=== PATIENT | female | born 1975 | race Caucasian/White ===

== ENCOUNTER 2020-03-02 13:53 | Outpatient (REF) | payer OTHER, SELFPAY | END 2020-03-02 13:54 | disposition home or self-care (01) | LOC: HO.BBR 13:53 | PROVIDERS: Visit Provider Internal Medicine | DX: D75.1 Secondary polycythemia (principal) | CPT/HCPCS: 36415; 85014 ==

== ENCOUNTER 2020-04-04 06:06 | Outpatient (REF) | payer OTHER, SELFPAY ==
[2020-04-04 07:13] LABS: MANUAL DIFF FLAG NO
[2020-04-04 07:22] LABS: Basophils Percent Auto 0.4 % (0-2); Eosinophils Absolute Auto 0.2 X10*3/uL (0.0-0.4); Eosinophils Percent Auto 2.7 % (0-4); Hematocrit 44.7 % (37-47); Hemoglobin 15.4 g/dl (12.0-16.0); Imm Gran Abs Auto 0.02 X10*3/uL (0.00-0.03); Imm Gran Pct Auto 0.3 % (0.0-0.4); Lymphocytes Absolute Auto 1.9 X10*3/uL (1.2-4.9); Mean Corpuscular HGB Conc 34.5 g/dl (31.0-35.0); Mean Corpuscular Hemoglobin 30.3 pg (27.0-33.0); Mean Platelet Volume 9.3 fL (9.4-12.3); Monocytes Absolute Auto 0.6 X10*3/uL (0.1-1.2); Monocytes Percent Auto 7.8 % (2-11); Neutrophils Absolute Auto 4.4 X10*3/uL (2.0-8.3); Neutrophils Percent Auto 61.8 % (45-73); Platelet Count 324 X10*3/uL (160-400); Red Blood Count 5.08 X10*6/uL (4.20-5.50); Red Cell Distribution Width 12.9 % (11.0-16.0); White Blood Count 7.2 X10*3/uL (4.8-10.8)
[2020-04-04 07:44] LABS: Alanine Aminotransferase 23 U/L (0-31); Albumin Level 4.4 g/dL (3.5-5.0); Alkaline Phosphatase 47 U/L (39-117); Anion Gap 13 (12-20); Aspartate Amino Transferase 21 U/L (5-31); Bilirubin Total 0.7 mg/dL (0.0-1.0); Blood Urea Nitrogen 27 mg/dL (9-16); Calcium 9.2 mg/dL (8.4-10.2); Carbon Dioxide 30 mmol/L (22-29); Chloride 101 mmol/L (96-108); Cholesterol 170 mg/dL; Estimated Glomerular Filt Rate > 60; Glucose Random 101 mg/dL (60-115); HDL Cholesterol 40 mg/dL; LDL Cholesterol Calculated 102 mg/dl; Potassium 4.3 mmol/l (3.3-5.1); Sodium 140 mmol/L (135-145); Total Protein 7.3 g/dL (6.5-8.0); Triglycerides 144 mg/dL
[2020-04-04 08:08] LABS: Free T4 (Free Thyroxine) 1.19 ng/dL (0.71-1.85); Thyroid Stimulating Hormone 5.81 uIU/mL (0.32-4.0); Vitamin D 25-OH Total 34.5 ng/mL (>30)
[2020-04-04 09:26] LABS: Folate 6.7 ng/mL (> or = 4.0); Vitamin B12 286 pg/mL (200-900)
== END 2020-04-04 06:07 | disposition home or self-care (01) ==
LOC: HO.LAB 06:06
PROVIDERS: PCP Internal Medicine; Visit Provider Internal Medicine
DX: Z00.00 Encounter for general adult medical examination without abnormal findings (principal)
CPT/HCPCS: 36415; 80053; 80061; 82306; 82607; 82746; 84439; 84443; 85025

== ENCOUNTER 2020-05-04 11:35 | Outpatient (REF) | payer OTHER, SELFPAY | END 2020-05-04 11:36 | disposition home or self-care (01) | LOC: HO.BBR 11:35 | PROVIDERS: Visit Provider Internal Medicine | DX: D75.1 Secondary polycythemia (principal) | CPT/HCPCS: 85014 ==

== ENCOUNTER 2020-06-23 09:00 | Outpatient (REF) | payer OTHER, SELFPAY ==
--- NOTE | ~2020-06-23 | MM_ITS ---
EXAMINATION: MM SCREENING DIGITAL BREAST TOMOSYNTHESIS, BILATERAL CLINICAL INFORMATION: Screening. Asymptomatic. The lifetime risk of breast cancer based on the Tyrer-Cuzick Model is 12%. COMPARISON: Mammography: 05/27/2019, 11/06/2017, 07/18/2016 TECHNIQUE: Digital breast tomosynthesis is performed in both the craniocaudal and mediolateral oblique views along with computer-aided detection (CAD). Synthesized 2D images are generated from the tomosynthesis. Additional exaggerated left CC view is provided. FINDINGS: There are scattered areas of fibroglandular density (ACR BI-RADS breast composition Category b). Breast tissue composition borders on heterogeneously dense in the upper outer quadrants. Parenchymal pattern is similar to prior studies. There is no developing density or interval mass or architectural abnormality. No abnormal calcifications. The axilla and skin contours are unremarkable. MM/MM tomosynthesis screening BI IMPRESSION: No mammographic evidence of malignancy. ASSESSMENT: BI-RADS 1: Negative RECOMMENDATION: Routine annual mammography screening. This patient's information was entered into a reminder system with a target due date for their next mammogram.
== END 2020-06-23 09:01 | disposition home or self-care (01) ==
LOC: HO.MAMMO 09:00
PROVIDERS: PCP Internal Medicine; Visit Provider Internal Medicine
DX: Z12.31 Encounter for screening mammogram for malignant neoplasm of breast (principal)
CPT/HCPCS: 77063; 77067

== ENCOUNTER 2020-06-30 10:30 | Outpatient (REF) | payer OTHER, SELFPAY ==
[2020-06-30 11:37] LABS: Free T4 (Free Thyroxine) 1.62 ng/dL (0.71-1.85); Thyroid Stimulating Hormone 0.29 uIU/mL (0.32-4.0)
== END 2020-06-30 10:31 | disposition home or self-care (01) ==
LOC: HO.LAB 10:30
PROVIDERS: PCP Internal Medicine; Visit Provider Internal Medicine
DX: E03.9 Hypothyroidism, unspecified (principal)
CPT/HCPCS: 36415; 84439; 84443

== ENCOUNTER 2020-09-14 10:49 | Outpatient (REF) | payer OTHER, SELFPAY ==
[2020-09-14 12:24] LABS: MANUAL DIFF FLAG NO
[2020-09-14 12:32] LABS: Basophils Absolute Auto 0.1 X10*3/uL (0.0-0.2); Basophils Percent Auto 0.9 % (0-2); Eosinophils Absolute Auto 0.2 X10*3/uL (0.0-0.4); Eosinophils Percent Auto 3.3 % (0-4); Hematocrit 45.8 % (37-47); Hemoglobin 15.7 g/dl (12.0-16.0); Imm Gran Abs Auto 0.02 X10*3/uL (0.00-0.03); Imm Gran Pct Auto 0.3 % (0.0-0.4); Lymphocytes Absolute Auto 1.4 X10*3/uL (1.2-4.9); Lymphocytes Percent Auto 22.6 % (20-40); Mean Corpuscular HGB Conc 34.3 g/dl (31.0-35.0); Mean Corpuscular Volume 87.4 fL (80-98); Mean Platelet Volume 9.2 fL (9.4-12.3); Monocytes Absolute Auto 0.5 X10*3/uL (0.1-1.2); Monocytes Percent Auto 7.4 % (2-11); Neutrophils Absolute Auto 4.1 X10*3/uL (2.0-8.3); Neutrophils Percent Auto 65.5 % (45-73); Platelet Count 375 X10*3/uL (160-400); Red Blood Count 5.24 X10*6/uL (4.20-5.50); Red Cell Distribution Width 13.3 % (11.0-16.0); White Blood Count 6.3 X10*3/uL (4.8-10.8)
[2020-09-15 09:25] LABS: Erythropoietin (EPO) 4.6 mIU/mL (2.6-18.5)
== END 2020-09-14 10:50 | disposition home or self-care (01) ==
LOC: HO.LAB 10:49
PROVIDERS: Absent Provider Internal Medicine; PCP Internal Medicine; Visit Provider Internal Medicine
DX: D75.1 Secondary polycythemia (principal)
CPT/HCPCS: 36415; 82668; 85025

== ENCOUNTER 2020-11-04 20:17 | Emergency (ER) | payer OTHER, SELFPAY ==
--- NOTE | ~2020-11-04 | XR_ITS ---
EXAMINATION: XR CHEST CLINICAL INFORMATION: Fever, cough COMPARISON: 02/12/2015 TECHNIQUE: 2 views of the chest were obtained. FINDINGS: The lungs are clear with no focal consolidation. No evidence of pneumothorax, pulmonary edema, or pleural effusions. The cardiomediastinal silhouette is unremarkable. No acute osseous findings. XR/XR chest 2V IMPRESSION: No acute cardiopulmonary findings.
--- NOTE | ~2020-11-04 | US_ITS ---
EXAMINATION: US ABDOMEN LIMITED CLINICAL INFORMATION: Right upper quadrant/epigastric pain. COMPARISON: 05/31/2019 TECHNIQUE: Real-time imaging of the right upper quadrant abdominal viscera. FINDINGS: PANCREAS: The visualized proximal portion of the pancreas is unremarkable. The distal portion is obscured secondary to overlying bowel gas. LIVER: The liver is normal in size. The liver contour is normal. There is increased liver parenchymal echogenicity, consistent with hepatic steatosis; focal sparing noted near the gallbladder. No focal hepatic lesion. There is no intrahepatic biliary duct dilatation seen. GALLBLADDER: The gallbladder is physiologically distended without evidence of stones, sludge, polyps, wall thickening or pericholecystic fluid. COMMON BILE DUCT: Normal in caliber measuring 0.3 cm in diameter. RIGHT KIDNEY: No hydronephrosis. No renal calculi or focal parenchymal lesions. The kidney measures 12.8 cm in maximum dimension. FREE FLUID: None. US/US abdomen limited IMPRESSION: Normal appearance of the gallbladder. Hepatic steatosis.
--- NOTE | ~2020-11-04 | CT_ITS ---
EXAMINATION: CT ABDOMEN AND PELVIS WITH CONTRAST CLINICAL INFORMATION: Right flank/upper quadrant pain, febrile COMPARISON: Ultrasound 11/04/2020 TECHNIQUE: Multidetector volumetric images were obtained from the superior aspect of the liver through the pubic symphysis following administration 85 mL of Omnipaque 350 intravenous contrast. Sagittal and coronal reformatted images were obtained on the technologist's workstation. Oral contrast: No This CT examination was performed using dose optimization techniques as appropriate, variously including the following: *Automated exposure control *Adjustment of mA and/or kV according to patient size (this includes techniques or standardized protocols for targeted exams where dose is matched to indication/reason for exam; i.e. extremities or head) *Use of iterative reconstruction technique DLP: 751 mGy-cm FINDINGS: LUNG BASES: A subpleural 3 mm nodule is noted in the lingula laterally on image 4/96. Linear atelectasis is present in the left lower lobe. LIVER, GALLBLADDER, AND BILIARY TREE: The liver is normal in size, shape, and attenuation. No focal hepatic lesion or biliary ductal dilatation is present. The gallbladder is unremarkable with no evidence of radiopaque gallstones, gallbladder wall thickening, or obvious pericholecystic inflammatory changes. PANCREAS: Unremarkable. SPLEEN: Unremarkable. ADRENAL GLANDS: Unremarkable. KIDNEYS AND URETERS: The kidneys are normal in size, shape, and attenuation. No hydronephrosis, hydroureter, or obstructing calculi seen. No perinephric stranding. BLADDER: Unremarkable. GASTROINTESTINAL TRACT: The small and large bowel are unremarkable. The appendix is not identified. No free fluid or free air is seen. ABDOMINAL WALL: No significant hernia is appreciated. LYMPH NODES: Normal. VASCULAR: Unremarkable. PELVIC VISCERA: Partially calcified uterine fibroid is noted posteriorly near the fundus measuring approximately 5 cm. IUD is present in the uterus. Left adnexal cyst measuring up to 3.6 cm is presumably ovarian. OSSEOUS STRUCTURES: There is disc space narrowing and endplate osteophyte formation in the lower lumbar spine. CT/CT abdomen pelvis w con IMPRESSION: 1. Left adnexal cyst measuring up to 3.6 cm, presumably ovarian. No additional acute findings identified in the abdomen/pelvis. 2. Left upper lobe 3 mm lung nodule, nonspecific. According to the UPDATED 2017 Fleischner Society recommendations, the advised follow-up imaging for solid nodules < 6 mm is: LOW RISK PATIENT: No routine follow-up. HIGH RISK PATIENT: Optional CT at 12 months.
[2020-11-04 20:21] VITALS: BP 150/93; PULSE 115; RESP 18; TEMP 38.7; O2SAT 96; BMI 37.7
[2020-11-04 22:40] VITALS: BP 131/77; PULSE 79; RESP 18; TEMP 36.9; O2SAT 97
[2020-11-04 22:51] LABS: MANUAL DIFF FLAG NO
[2020-11-04 22:52] LABS: Basophils Percent Auto 0.6 % (0-2); Eosinophils Percent Auto 0.2 % (0-4); Glucose Urine UA NEG (NEG); Hematocrit 42.2 % (37-47); Imm Gran Abs Auto 0.01 X10*3/uL (0.00-0.03); Imm Gran Pct Auto 0.2 % (0.0-0.4); Leukocyte Esterase Urine NEG (NEG); Lymphocytes Absolute Auto 0.8 X10*3/uL (1.2-4.9); Lymphocytes Percent Auto 14.9 % (20-40); Mean Corpuscular HGB Conc 35.5 g/dl (31.0-35.0); Mean Corpuscular Hemoglobin 30.4 pg (27.0-33.0); Mean Corpuscular Volume 85.4 fL (80-98); Mean Platelet Volume 8.8 fL (9.4-12.3); Monocytes Absolute Auto 0.5 X10*3/uL (0.1-1.2); Monocytes Percent Auto 10.2 % (2-11); Neutrophils Absolute Auto 3.9 X10*3/uL (2.0-8.3); Neutrophils Percent Auto 73.9 % (45-73); Nitrite Urine NEG (NEG); Platelet Count 273 X10*3/uL (160-400); Red Blood Count 4.94 X10*6/uL (4.20-5.50); Red Cell Distribution Width 12.5 % (11.0-16.0); Specific Gravity - Urine 1.025 (1.005-1.025); Urine Blood TRACE (NEG); Urine Ketones 5 MG/DL (NEG); Urine Protein NEG (NEG-TRACE); White Blood Count 5.2 X10*3/uL (4.8-10.8)
[2020-11-04 22:55] LABS: Appearance Urine CLEAR; Color Urine YELLOW; UPreg QC Valid YES; Urine Pregnancy NEGATIVE (NEGATIVE)
[2020-11-04 23:01] LABS: Bacteria Urine TRACE /LPF; RBC Urine 0-2 /HPF (0); Squamous Epithelial Cell Urine 1+ /LPF; WBC Urine 0 /HPF (0-4)
--- NOTE | 2020-11-04 23:04 | ED_ITS ---
HPI - Abdominal Pain General Chief Complaint: Abdominal Pain Stated Complaint: Fever Time Seen by Provider: 11/04/20 23:04 Source: patient Mode of arrival: ambulatory History of Present Illness HPI narrative: 45-year-old female with history of RA, polycythemia who presents with onset of right upper quadrant/epigastric pain with radiation of the back that has started since yesterday with associated nausea but no vomiting and reports fever and chills but denies any diarrhea or urinary pain/burning/frequency, also denies any shortness of breath/chest pain/palpitations. Related Data Home Medications Medication Instructions Recorded Confirmed dicyclomine 10 mg capsule 10 mg PO QID 04/06/20 08/03/20 sumatriptan succinate 50 mg tablet 50 mg PO Q2-4H PRN 04/06/20 08/03/20 hydroxychloroquine 200 mg PO DAILY 05/25/20 08/03/20 Previous Rx's Medication Instructions Recorded hydrochlorothiazide 25 mg tablet 25 mg PO DAILY #90 tab 04/06/20 pantoprazole 40 mg tablet,delayed 40 mg PO DAILY #90 tab 04/06/20 release levothyroxine 25 mcg tablet See Rx Instructions PO DAILY #90 09/27/20 tab levothyroxine 200 mcg tablet 200 mcg PO DAILY #90 tab 10/02/20 Allergies Allergy/AdvReac Type Severity Reaction Status Date / Time Biaxin Allergy Unknown tongue Verified 04/06/20 16:04 swelling clarithromycin [From BIAXIN] Allergy Unknown SWELLING Verified 04/06/20 16:04 AND HIVES latex [LATEX] Allergy Unknown HIVES Verified 03/06/20 13:38 oxycodone [From OXYCONTIN] Allergy Unknown ITCHINESS Verified 04/06/20 16:04 Review of Systems Review of Systems Pertinent positives and negatives as stated in HPI 10 point review of systems is otherwise negative. Physical Exam Vital Signs: Vital Signs: Last Vital Signs Temp 97.9 F 11/05/20 01:26 Pulse 70 11/05/20 01:26 Resp 18 11/05/20 01:26 BP 120/73 11/05/20 01:26 Pulse Ox 97 11/05/20 01:26 Body Mass Index 37.7 VITAL SIGNS: Reviewed. GENERAL: Well developed, well nourished, in no acute distress. HEAD: Normocephalic/atraumatic EYES: PERRLA, EOMI OROPHARYNX: no oral lesions noted, posterior pharynx clear LUNGS: Normal breath sounds. No adventitious sounds or accessory muscle use. SpO2<97> CARDIOVASCULAR: Regular rate and rhythm without noted murmurs, no JVD or lower extremity edema. ABDOMEN: Soft, tenderness in right upper quadrant/epigastric without rebound, non-distended with bowel sounds. MUSCULOSKELETAL: No tenderness, deformities, or effusions noted on gross inspect ion. EXTREMITIES: No cyanosis, clubbing or edema. SKIN: Inspection of the skin reveals no rashes NEUROLOGIC: Alert and oriented x 4. Strength and sensation to light touch were grossly intact x 4. Course Course Course Narrative: 45-year-old female with history and clinical presentation suggestive of possible cholecystitis, choledocholithiasis, pancreatitis, less likely to be UTI/pyelonephritis/renal colic. Review all investigations negative for acute findings. All results discussed with the patient at bedside and patient will be treated for presumptive viral syndrome. She was instructed to follow up with the primary care provider 1st thing in the morning for re-evaluation further outpatient management. MDM - Abdominal Pain Lab Data Result diagrams: 11/04/20 22:45 11/04/20 22:45 Labs: Lab Results 11/04/20 11/04/20 11/04/20 Range/Units 22:45 22:45 22:45 WBC 5.2 (4.8-10.8) X10*3/uL RBC 4.94 (4.20-5.50) X10*6/uL Hgb 15.0 (12.0-16.0) g/dl Hct 42.2 (37-47) % MCV 85.4 (80-98) fL MCH 30.4 (27.0-33.0) pg MCHC 35.5 H (31.0-35.0) g/dl RDW 12.5 (11.0-16.0) % Plt Count 273 D (160-400) X10*3/uL MPV 8.8 L (9.4-12.3) fL Immature Gran % (Auto) 0.2 (0.0-0.4) % Neut % (Auto) 73.9 H (45-73) % Lymph % (Auto) 14.9 L (20-40) % [place] % (Auto) 10.2 (2-11) % Eos % (Auto) 0.2 (0-4) % Baso % (Auto) 0.6 (0-2) % Lymph # (Auto) 0.8 L (1.2-4.9) X10*3/uL [place] # (Auto) 0.5 (0.1-1.2) X10*3/uL Eos # (Auto) 0.0 (0.0-0.4) X10*3/uL Baso # (Auto) 0.0 (0.0-0.2) X10*3/uL Abs Immat Gran (auto) 0.01 (0.00-0.03) X10*3/uL Absolute Neuts (auto) 3.9 (2.0-8.3) X10*3/uL Absolute Nucleated RBC 0.000 (0.0-0.012) X10*3/uL Nucleated RBC % (auto) 0.0 (0.0-0.2) /100WBC Sodium 138 (135-145) mmol/L Potassium 3.7 (3.3-5.1) mmol/L Chloride 101 (96-108) mmol/L Carbon Dioxide 27 (22-29) mmol/L Anion Gap 14 (12-20) BUN 18 H (9-16) mg/dL Creatinine 1.13 (0.5-1.4) mg/dL Estim Creat Clear Calc 69.5 Estimated GFR 52 Random Glucose 106 (60-115) mg/dL Lactic Acid (0.5-2.0) mmol/L Calcium 9.5 (8.4-10.2) mg/dL Total Bilirubin 0.6 (0.0-1.0) mg/dL AST 27 (5-31) U/L ALT 29 (0-31) U/L Alkaline Phosphatase 53 (39-117) U/L Total Protein 7.1 (6.5-8.0) g/dL Albumin 4.3 (3.5-5.0) g/dL Lipase 52 (8-78) U/L Urine Color YELLOW Urine Appearance CLEAR Urine pH 6.0 (5.0-8.0) Ur Specific [place] 1.025 (1.005-1.025) Urine Protein NEG (NEG-TRACE) MG/DL Urine Glucose (UA) NEG (NEG) MG/DL Urine Ketones 5 (NEG) MG/DL Urine Blood TRACE (NEG) Urine Nitrite NEG (NEG) Ur Leukocyte Esterase NEG (NEG) Urine RBC 0-2 (0) /HPF Urine WBC 0 (0-4) /HPF Ur Squamous Epith Cells 1+ /LPF Urine Bacteria TRACE /LPF Urine Test (NEGATIVE) COVID-19 ([facility]) (Negative) COVID-19 Clin Com 11/04/20 11/04/20 11/04/20 Range/Units 22:45 23:24 23:28 WBC (4.8-10.8) X10*3/uL RBC (4.20-5.50) X10*6/uL Hgb (12.0-16.0) g/dl Hct (37-47) % MCV (80-98) fL MCH (27.0-33.0) pg MCHC (31.0-35.0) g/dl RDW (11.0-16.0) % Plt Count (160-400) X10*3/uL MPV (9.4-12.3) fL Immature Gran % (Auto) (0.0-0.4) % Neut % (Auto) (45-73) % Lymph % (Auto) (20-40) % [place] % (Auto) (2-11) % Eos % (Auto) (0-4) % Baso % (Auto) (0-2) % Lymph # (Auto) (1.2-4.9) X10*3/uL [place] # (Auto) (0.1-1.2) X10*3/uL Eos # (Auto) (0.0-0.4) X10*3/uL Baso # (Auto) (0.0-0.2) X10*3/uL Abs Immat Gran (auto) (0.00-0.03) X10*3/uL Absolute Neuts (auto) (2.0-8.3) X10*3/uL Absolute Nucleated RBC (0.0-0.012) X10*3/uL Nucleated RBC % (auto) (0.0-0.2) /100WBC Sodium (135-145) mmol/L Potassium (3.3-5.1) mmol/L Chloride (96-108) mmol/L Carbon Dioxide (22-29) mmol/L Anion Gap (12-20) BUN (9-16) mg/dL Creatinine (0.5-1.4) mg/dL Estim Creat Clear Calc Estimated GFR Random Glucose (60-115) mg/dL Lactic Acid 0.5 (0.5-2.0) mmol/L Calcium (8.4-10.2) mg/dL Total Bilirubin (0.0-1.0) mg/dL AST (5-31) U/L ALT (0-31) U/L Alkaline Phosphatase (39-117) U/L Total Protein (6.5-8.0) g/dL Albumin (3.5-5.0) g/dL Lipase (8-78) U/L Urine Color Urine Appearance Urine pH (5.0-8.0) Ur Specific [place] (1.005-1.025) Urine Protein (NEG-TRACE) MG/DL Urine Glucose (UA) (NEG) MG/DL Urine Ketones (NEG) MG/DL Urine Blood (NEG) Urine Nitrite (NEG) Ur Leukocyte Esterase (NEG) Urine RBC (0) /HPF Urine WBC (0-4) /HPF Ur Squamous Epith Cells /LPF Urine Bacteria /LPF Urine Test NEGATIVE (NEGATIVE) COVID-19 ([facility]) Negative (Negative) COVID-19 Clin Com See Note Discharge Plan Discharge Clinical Impression: Acute viral syndrome Patient Disposition: Home, Self-Care Instructions: Viral Syndrome (ED) Additional Instructions: 1. Resume all home medications as prescribed. 2. Please follow up with her primary care provider for re-evaluation in 2-3 days and further outpatient management. Return to the ER for acute worsening of symptoms. Prescriptions: No Action levothyroxine [Synthroid] 25 mcg tablet See Rx Instructions PO DAILY Qty: 90 RF: 1 levothyroxine [Synthroid] 200 mcg tablet 200 mcg PO DAILY Qty: 90 RF: 2 hydroxychloroquine 200 mg Tablet 200 mg PO DAILY RF: 0 sumatriptan succinate [Imitrex] 50 mg tablet 50 mg PO Q2-4H PRN (Reason: migraine) RF: 0 dicyclomine 10 mg capsule 10 mg PO QID RF: 0 pantoprazole 40 mg tablet,delayed release (DR/EC) 40 mg PO DAILY Qty: 90 RF: 2 hydrochlorothiazide 25 mg tablet 25 mg PO DAILY Qty: 90 RF: 2 Referrals: Po,Duong Mac MD [Primary Care Provider] - 2 days (Re-evaluation for unexplained fever, evaluated here in the ER with negative workup.) [facility] Past Medical History Source: nursing notes reviewed Medical History Adenomyosis GERD (gastroesophageal reflux disease) Hypertension Hypothyroid Lumbar degenerative disc disease Migraine Obesity (BMI 30-39.9) Osteoarthritis Polycythemia Surgical History History of appendectomy History of arthroscopy of right shoulder History of section History of inguinal hernia repair History of orthopedic surgery Family History Family History Father Alcohol abuse Mother Ovarian cancer Maternal Grandmother Breast cancer Liver cancer Paternal Aunt Breast cancer Social History Social History Alcohol intake: current Alcohol intake frequency: holidays/special occasions on ly Patient Tobacco Use Status: Never used Tobacco Cigarette Packs Per Day: 0.5 Use of substances other than those prescribed or required for medical reasons: No Advance Directives: No Advance Directives Information Provided: No Patient : No
[2020-11-04 23:16] LABS: Alanine Aminotransferase 29 U/L (0-31); Albumin Level 4.3 g/dL (3.5-5.0); Alkaline Phosphatase 53 U/L (39-117); Anion Gap 14 (12-20); Aspartate Amino Transferase 27 U/L (5-31); Bilirubin Total 0.6 mg/dL (0.0-1.0); Blood Urea Nitrogen 18 mg/dL (9-16); Calcium 9.5 mg/dL (8.4-10.2); Carbon Dioxide 27 mmol/L (22-29); Chloride 101 mmol/L (96-108); Creatinine Clr Calc Pharmacy 69.5; Estimated Glomerular Filt Rate 52; Glucose Random 106 mg/dL (60-115); Potassium 3.7 mmol/L (3.3-5.1); Sodium 138 mmol/L (135-145); Total Protein 7.1 g/dL (6.5-8.0)
[2020-11-04] MEDS: Acetaminophen 325 MG TABLET 975 MG PO (23:16)
[2020-11-04 23:36] LABS: Lipase 52 U/L (8-78)
[2020-11-04 23:49] LABS: Lactic Acid 0.5 mmol/L (0.5-2.0)
[2020-11-04 23:49] LABS: COVID-19 Test Negative (Negative); IDNOW Serial# 9DD0AD1C
[2020-11-05 01:26] VITALS: BP 120/73; PULSE 70; RESP 18; TEMP 36.6; O2SAT 97
[2020-11-05 03:26] LABS: Thyroid Stimulating Hormone 0.03 uIU/mL (0.32-4.0)
== END 2020-11-05 02:57 | disposition home or self-care (01) ==
PROVIDERS: Emergency Provider Student in an Organized Health Care Education/Training Program; PCP Internal Medicine
DX: B34.9 Viral infection, unspecified (principal); R10.11 Right upper quadrant pain; R50.9 Fever, unspecified; Z79.899 Other long term (current) drug therapy; Z20.822 Contact with and (suspected) exposure to COVID-19; F17.210 Nicotine dependence, cigarettes, uncomplicated; Z71.6 Tobacco abuse counseling
CPT/HCPCS: 36415; 71046; 74177; 76705; 80053; 81001; 81025; 83605; 83690; 84443; 85025; 87040; 87635; 99285

== ENCOUNTER 2020-11-07 07:42 | Inpatient (IN) | payer OTHER, SELFPAY ==
[2020-11-07] VITALS (13 sets, daily range): BP systolic 94–156; BP diastolic 49–92; PULSE 71–115; RESP 14–18; TEMP 36.3–38.2; O2SAT 95–98; BMI 37.0
--- NOTE | ~2020-11-07 | CT_ITS ---
EXAMINATION: CT HEAD WITHOUT CONTRAST CLINICAL INFORMATION: Headache COMPARISON: May 21, 2017 TECHNIQUE: Contiguous axial imaging was performed from the skull base to vertex without intravenous administration of contrast. This CT examination was performed using dose optimization techniques as appropriate, variously including the following: *Automated exposure control *Adjustment of mA and/or kV according to patient size (this includes techniques or standardized protocols for targeted exams where dose is matched to indication/reason for exam; i.e. extremities or head) *Use of iterative reconstruction technique DLP: 725 mGy-cm FINDINGS: There is no evidence of acute intracranial hemorrhage or territorial infarction. No abnormal mass effect or midline shift is seen. Pozo to white matter differentiation is well preserved. No extra-axial fluid collections are identified. The ventricles are normal in size. There is no abnormal attenuation within the brain parenchyma. The osseous structures and soft tissues are normal. The mastoid air cells and visualized portions of the paranasal sinuses are well aerated. CT/CT head/brain wo con IMPRESSION: No acute intracranial pathology.
--- NOTE | ~2020-11-07 | XR_ITS ---
EXAMINATION: XR CHEST CLINICAL INFORMATION: Fever COMPARISON: November 05, 2020 TECHNIQUE: 2 views of the chest were obtained. FINDINGS: There is no evidence of acute parenchymal disease, pneumothorax, or pleural effusion. Heart normal size. No evidence of pulmonary edema. Calcific tendinitis of the right shoulder is evident. XR/XR chest 2V IMPRESSION: No acute disease.
--- NOTE | 2020-11-07 08:36 | ECG_ITS ---
Test Reason : FEVER Blood Pressure : / mmHG Vent. Rate : 103 BPM Atrial Rate : 103 BPM P-R Int : 142 ms QRS Dur : 080 ms QT Int : 338 ms P-R-T Axes : 053 030 033 degrees QTc Int : 442 ms Sinus tachycardia Otherwise normal ECG When compared with ECG of 15-OCT-2014 10:07, No significant change was found Referred By: Mary Fletcher Electronically Signed By:MIGUEL HEWITT MD
--- NOTE | 2020-11-07 08:43 | ED_ITS ---
HPI - Fever General Chief Complaint: Fever Stated Complaint: Fever headaches Time Seen by Provider: 11/07/20 07:52 Source: patient Mode of arrival: ambulatory Limitations: no limitations History of Present Illness HPI Narrative: 45 yo female with past medical history of RA, polycythemia vera here with complaints of Fever with a max temp of 103 degrees since Thursday evening. Seen here November 05 with complaints of fever and right upper quadrant abdominal pain. Had labs which were unremarkable and an abdominal ultrasound which showed no acute finding. Diagnosed with viral syndrome. continued fever since. No additional abdominal pain. She is complaining of a headache, body aches, muscle aches, neck discomfort and rash noted to the right upper extremity. No cough, shortness of breath, chest pain, vomiting, diarrhea, urinary symptoms. Taking Motrin and Tylenol with continued symptoms. Patient tells me her sister noticed the rash on her right upper arm about 2 days ago. She does vaguely remember seeing a bug at this site about 1 week ago and swiped it away. Denies any pain or itching or burning to the site. Related Data Home Medications Medication Instructions Recorded Confirmed dicyclomine 10 mg capsule 10 mg PO QID 04/06/20 11/07/20 sumatriptan succinate 50 mg tablet 50 mg PO Q2-4H PRN 04/06/20 11/07/20 levothyroxine [Synthroid] 25 mcg PO DAILY 11/07/20 11/07/20 tramadol 1 tab PO DAILY PRN 11/07/20 11/07/20 Previous Rx's Medication Instructions Recorded hydrochlorothiazide 25 mg tablet 25 mg PO DAILY #90 tab 04/06/20 pantoprazole 40 mg tablet,delayed 40 mg PO DAILY #90 tab 04/06/20 release levothyroxine 200 mcg tablet 200 mcg PO DAILY #90 tab 10/02/20 Allergies Allergy/AdvReac Type Severity Reaction Status Date / Time Biaxin Allergy Unknown tongue Verified 04/06/20 16:04 swelling clarithromycin [From BIAXIN] Allergy Unknown SWELLING Verified 04/06/20 16:04 AND HIVES latex [LATEX] Allergy Unknown HIVES Verified 03/06/20 13:38 oxycodone [From OXYCONTIN] Allergy Unknown ITCHINESS Verified 04/06/20 16:04 Review of Systems Review of Systems: Yes all other systems are reviewed and are negative Constitutional: Constitutional: Reports no additional constitutional complaints, Reports body ache(s), Reports chills, Reports fever(s), Reports headache(s) and Denies weakness Eyes: Eyes: Reports no additional eye complaints and Denies change in vision ENT: Reports system reviewed and no additional complaints, except as documented, Denies dizziness, Reports headache(s), Denies nasal congestion, Denies nasal discharge and Reports neck pain Cardiovascular: Cardiovascular: Reports no additional cardiovascular complaints, Denies chest pain, Denies leg edema and Denies dyspnea Respiratory: Respiratory: Reports no additional respiratory complaints, Denies cough and Denies dyspnea Gastrointestinal: Gastrointestinal: Reports no additional gastrointestinal complaints, Denies abdominal pain, Denies diarrhea, Denies nausea and Denies vomiting Genitourinary: Genitourinary: Reports no additional female genitourinary complaints and Denies urinary incontinence Musculoskeletal: Musculoskeletal: Reports no additional musculoskeletal complaints, Denies back pain, Denies arthralgias, Denies joint swelling, Reports neck pain, Denies numbness and Denies tingling Integumentary/Breasts: Skin/Breast: Reports system reviewed and no additional complaints, except as docu and Reports rash Neurologic: Reports system reviewed and no additional complaints, except as documented, Denies Abnormal speech present, Denies dizziness, Reports headache( s), Denies numbness, Denies tingling and Denies weakness PMFSH Past Medical History Attestation statement: The following information was validated with the patient. Source: old records reviewed and nursing notes reviewed Medical History Adenomyosis GERD (gastroesophageal reflux disease) Hypertension Hypothyroid Lumbar degenerative disc disease Migraine Obesity (BMI 30-39.9) Osteoarthritis Polycythemia Surgical History History of appendectomy History of arthroscopy of right shoulder History of section History of inguinal hernia repair History of orthopedic surgery Family History Family History Father Alcohol abuse Mother Ovarian cancer Maternal Grandmother Breast cancer Liver cancer Paternal Aunt Breast cancer Social History Social History Alcohol intake: never Patient Tobacco Use Status: Never used Tobacco Cigarette Packs Per Day: 0.5 Smoked in Last 30 Days: No Use of substances other than those prescribed or required for medical reasons: No Advance Directives: No Advance Directives Information Provided: No Patient : No Physical Exam Vital Signs: Vital Signs: Last Vital Signs Temp 98.5 F 11/07/20 14:28 Pulse 71 11/07/20 14:28 Resp 16 11/07/20 14:28 BP 94/49 L 11/07/20 14:28 Pulse Ox 97 11/07/20 14:28 Body Mass Index 37.0 Const: General: cooperative, healthy appearing, comfortable and no acute distress Orientation/consciousness: patient oriented x3 Limitations: no limitations HENMT: Head: Yes normal to inspection Ears: hearing grossly normal bilaterally General nose exam: Normal external nose present Face and sinus: Yes normal facial exam Mouth: Normal oral and palatal mucosa present Throat: Yes posterior oropharynx normal Eyes: General: appearance normal, both eyes and all related structures Pu pils: Equal, round and reactive pupils present Neck: Other: Limited range of motion. Complaining of diffuse pain Neck: Yes normal visual inspection Chest: Chest palpation & inspection: normal inspection of the chest Resp: Effort & Inspection: normal respiratory effort Auscultation: clear to auscultation bilaterally Cardio: Rate: regular rate Rhythm: regular rhythm Peripheral pulses: Peripheral pulses 2+ throughout GI: Inspection: Yes normal to inspection Palpation (GI): Soft to palpation and nontender Auscultation: normal bowel sounds Back/Spine/Pelvis: Thoracic/Lumbar Spine: thoracic and lumbar spine normal to inspection Skin: Other: General skin exam: no rashes or lesions noted Neuro: General: patient oriented x3, no focal motor deficits and normal sensation to monofilament Cranial nerves: Yes Equal, round and reactive pupils present Cognition (Neuro): normal cognition Speech: No Abnormal speech present Gait exam (Neuro): Normal gait present Motor exam (neuro): 5/5 motor strength present throughout Extrem: General: Yes normal to inspection Course Course Course Narrative: 45-year-old female here with fever, headache, body aches, muscle aches, rash to the right upper extremity for several days. Possible tick bite per patient. Rash is consistent with erythema migrans. On arrival fever with tachycardia. Normal neuro exam. Is complaining of generalized headache which patient states is quite severe and generalized body aches with neck discomfort. Limited range of motion due to pain. May be secondary to body aches but could consider underlying meningitis. Will check labs, EKG, UA, chest x-ray, COVID screen. Give IV fluids (d/t obesity IBW of 52kg used) , IV Reglan, IV Benadryl, Toradol and re-assess. 0923-Ceftriaxone IV for presumed Lyme. 1040-continue headache, neck discomfort. Cannot rule out meningitis. Patient was consented for lumbar puncture. Will obtain CT head prior. 1430-CT head negative. LP done by Dr Hemphill at the bedside. 1545-Intractable LOW despite 3 rounds of narcotic, Toradol, Reglan and Benadryl. Will need admission. D/w with Dr Sanders who would like ID input. 1553-spoke to Dr. Murray from ID. Recommended adding doxycycline. Requested meningitis/encephalitis panel. Also if able requested West Nile and Eastern equine blood and CSF samples. 1600-call from lab. They are unable to process the West Nile and Eastern equine CSF samples due to an adequate amount of CSF. They will send the meningitis and encephalitis panel. They will follow-up with nursing if the West Nile and Eastern equine blood samples should still be evaluated. 1615-spoke to Dr. Corea who accepted patient Procedures Lumbar Puncture Time Out Performed: Yes Patient Position: upright Skin Prep: 0.5% Chlorhexidine/Alcohol Local Anesthetic: lidocaine 1% Amount of anesthesia used (mL): 3 Spinal Needle Gauge: 22G Interspace Used: L4-L5 Fluid Initially Obtained: clear Complications: none Additional Comments: Attempts x2 Done by Dr. Hemphill Consent in chart MDM - Fever MDM Narrative Medical decision making narrative: UTI, meningitis, Lyme disease Differential Diagnosis Differential diagnosis: Likely fever of unknown origin, community acquired pneumonia and viral infection Medical Records Attestation: I reviewed the patient's medical records. Lab Data Attestation: I reviewed the patient's lab results. Result diagrams: 11/07/20 08:59 11/07/20 08:59 Labs: Lab Results 11/07/20 11/07/20 11/07/20 Range/Units 08:59 08:59 08:59 WBC 4.9 (4.8-10.8) X10*3/uL RBC 5.05 (4.20-5.50) X10*6/uL Hgb 15.0 (12.0-16.0) g/dl Hct 41.7 (37-47) % MCV 82.6 (80-98) fL MCH 29.7 (27.0-33.0) pg MCHC 36.0 H (31.0-35.0) g/dl RDW 12.3 (11.0-16.0) % Plt Count 216 (160-400) X10*3/uL MPV 9.2 L (9.4-12.3) fL Immature Gran % (Auto) 0.2 (0.0-0.4) % Neut % (Auto) 78.6 H (45-73) % Lymph % (Auto) 9.7 L (20-40) % [place] % (Auto) 11.1 H (2-11) % Eos % (Auto) 0.0 (0-4) % Baso % (Auto) 0.4 (0-2) % Lymph # (Auto) 0.5 L (1.2-4.9) X10*3/uL [place] # (Auto) 0.6 (0.1-1.2) X10*3/uL Eos # (Auto) 0.0 (0.0-0.4) X10*3/uL Baso # (Auto) 0.0 (0.0-0.2) X10*3/uL Abs Immat Gran (auto) 0.01 (0.00-0.03) X10*3/uL Absolute Neuts (auto) 3.9 (2.0-8.3) X10*3/uL Absolute Nucleated RBC 0.000 (0.0-0.012) X10*3/uL Nucleated RBC % (auto) 0.0 (0.0-0.2) /100WBC PT 15.6 H (9.9-13.0) SEC INR 1.4 H (0.9-1.1) Sodium 135 (135-145) mmol/L Potassium 3.2 L (3.3-5.1) mmol/L Chloride 99 (96-108) mmol/L Carbon Dioxide 26 (22-29) mmol/L Anion Gap 13 (12-20) BUN 12 (9-16) mg/dL Creatinine 0.90 (0.5-1.4) mg/dL Estim Creat Clear Calc 86.4 Estimated GFR > 60 Random Glucose 110 (60-115) mg/dL Lactic Acid (0.5-2.0) mmol/L Calcium 9.1 (8.4-10.2) mg/dL Magnesium 2.0 (1.6-2.6) mg/dL Total Bilirubin 1.0 (0.0-1.0) mg/dL Direct Bilirubin 0.4 (0.0-0.5) mg/dL AST 48 H D (5-31) U/L ALT 56 H (0-31) U/L Alkaline Phosphatase 76 D (39-117) U/L Total Protein 7.3 (6.5-8.0) g/dL Albumin 4.2 (3.5-5.0) g/dL Urine Color Urine Appearance Urine pH (5.0-8.0) Ur Specific Deloit (1.005-1.025) Urine Protein (NEG-TRACE) MG/DL Urine Glucose (UA) (NEG) MG/DL Urine Ketones (NEG) MG/DL Urine Blood (NEG) Urine Nitrite (NEG) Ur Leukocyte Esterase (NEG) Urine RBC (0) /HPF Urine WBC (0-4) /HPF Ur Squamous Epith Cells /LPF Urine Bacteria /LPF Urine Test (NEGATIVE) CSF Tube Number CSF Volume ML CSF Appearance CSF Color CSF WBC MM*3 CSF RBC MM*3 CSF Neutrophils % CSF Lymphocytes % CSF Monocytes % % CSF Other Cells % % CSF Appearance (b) CSF Glucose mg/dL CSF Total Protein (15-45) mg/dL CSF West Nile Virus COVID-19 ([facility]) (Negative) COVID-19 Clin Com 11/07/20 11/07/20 11/07/20 Range/Units 08:59 08:59 09:12 WBC (4.8-10.8) X10*3/uL RBC (4.20-5.50) X10*6/uL Hgb (12.0-16.0) g/dl Hct (37-47) % MCV (80-98) fL MCH (27.0-33.0) pg MCHC (31.0-35.0) g/dl RDW (11.0-16.0) % Plt Count (160-400) X10*3/uL MPV (9.4-12.3) fL Immature Gran % (Auto) (0.0-0.4) % Neut % (Auto) (45-73) % Lymph % (Auto) (20-40) % [place] % (Auto) (2-11) % Eos % (Auto) (0-4) % Baso % (Auto) (0-2) % Lymph # (Auto) (1.2-4.9) X10*3/uL [place] # (Auto) (0.1-1.2) X10*3/uL Eos # (Auto) (0.0-0.4) X10*3/uL Baso # (Auto) (0.0-0.2) X10*3/uL Abs Immat Gran (auto) (0.00-0.03) X10*3/uL Absolute Neuts (auto) (2.0-8.3) X10*3/uL Absolute Nucleated RBC (0.0-0.012) X10*3/uL Nucleated RBC % (auto) (0.0-0.2) /100WBC PT (9.9-13.0) SEC INR (0.9-1.1) Sodium (135-145) mmol/L Potassium (3.3-5.1) mmol/L Chloride (96-108) mmol/L Carbon Dioxide (22-29) mmol/L Anion Gap (12-20) BUN (9-16) mg/dL Creatinine (0.5-1.4) mg/dL Estim Creat Clear Calc Estimated GFR Random Glucose (60-115) mg/dL Lactic Acid 0.9 (0.5-2.0) mmol/L Calcium (8.4-10.2) mg/dL Magnesium (1.6-2.6) mg/dL Total Bilirubin (0.0-1.0) mg/dL Direct Bilirubin (0.0-0.5) mg/dL AST (5-31) U/L ALT (0-31) U/L Alkaline Phosphatase (39-117) U/L Total Protein (6.5-8.0) g/dL Albumin (3.5-5.0) g/dL Urine Color YELLOW Urine Appearance CLEAR Urine pH 7.0 (5.0-8.0) Ur Specific Deloit <= 1.005 (1.005-1.025) Urine Protein TRACE (NEG-TRACE) MG/DL Urine Glucose (UA) NEG (NEG) MG/DL Urine Ketones 5 (NEG) MG/DL Urine Blood 2+ H (NEG) Urine Nitrite NEG (NEG) Ur Leukocyte Esterase NEG (NEG) Urine RBC 5-9 H (0) /HPF Urine WBC 0 (0-4) /HPF Ur Squamous Epith Cells 2+ /LPF Urine Bacteria NONE /LPF Urine Test (NEGATIVE) CSF Tube Number CSF Volume ML CSF Appearance CSF Color CSF WBC MM*3 CSF RBC MM*3 CSF Neutrophils % CSF Lymphocytes % CSF Monocytes % % CSF Other Cells % % CSF Appearance (b) CSF Glucose mg/dL CSF Total Protein (15-45) mg/dL CSF West Nile Virus COVID-19 ([facility]) Negative (Negative) COVID-19 Clin Com See Note 11/07/20 11/07/20 11/07/20 Range/Units 09:12 13:45 13:45 WBC (4.8-10.8) X10*3/uL RBC (4.20-5.50) X10*6/uL Hgb (12.0-16.0) g/dl Hct (37-47) % MCV (80-98) fL MCH (27.0-33.0) pg MCHC (31.0-35.0) g/dl RDW (11.0-16.0) % Plt Count (160-400) X10*3/uL MPV (9.4-12.3) fL Immature Gran % (Auto) (0.0-0.4) % Neut % (Auto) (45-73) % Lymph % (Auto) (20-40) % [place] % (Auto) (2-11) % Eos % (Auto) (0-4) % Baso % (Auto) (0-2) % Lymph # (Auto) (1.2-4.9) X10*3/uL [place] # (Auto) (0.1-1.2) X10*3/uL Eos # (Auto) (0.0-0.4) X10*3/uL Baso # (Auto) (0.0-0.2) X10*3/uL Abs Immat Gran (auto) (0.00-0.03) X10*3/uL Absolute Neuts (auto) (2.0-8.3) X10*3/uL Absolute Nucleated RBC (0.0-0.012) X10*3/uL Nucleated RBC % (auto) (0.0-0.2) /100WBC PT (9.9-13.0) SEC INR (0.9-1.1) Sodium (135-145) mmol/L Potassium (3.3-5.1) mmol/L Chloride (96-108) mmol/L Carbon Dioxide (22-29) mmol/L Anion Gap (12-20) BUN (9-16) mg/dL Creatinine (0.5-1.4) mg/dL Estim Creat Clear Calc Estimated GFR Random Glucose (60-115) mg/dL Lactic Acid (0.5-2.0) mmol/L Calcium (8.4-10.2) mg/dL Magnesium (1.6-2.6) mg/dL Total Bilirubin (0.0-1.0) mg/dL Direct Bilirubin (0.0-0.5) mg/dL AST (5-31) U/L ALT (0-31) U/L Alkaline Phosphatase (39-117) U/L Total Protein (6.5-8.0) g/dL Albumin (3.5-5.0) g/dL Urine Color Urine Appearance Urine pH (5.0-8.0) Ur Specific [place]oit (1.005-1.025) Urine Protein (NEG-TRACE) MG/DL Urine Glucose (UA) (NEG) MG/DL Urine Ketones (NEG) MG/DL Urine Blood (NEG) Urine Nitrite (NEG) Ur Leukocyte Esterase (NEG) Urine RBC (0) /HPF Urine WBC (0-4) /HPF Ur Squamous Epith Cells /LPF Urine Bacteria /LPF Urine Test NEGATIVE (NEGATIVE) CSF Tube Number 1 4 CSF Volume 1.5 ML CSF Appearance CLEAR CSF Color COLORLESS CSF WBC 1 MM*3 CSF RBC 0 MM*3 CSF Neutrophils 0 % CSF Lymphocytes 100 % CSF Monocytes % 0 % CSF Other Cells % 0 % CSF Appearance (b) Clear, Colorless CSF Glucose 69 mg/dL CSF Total Protein 18.8 (15-45) mg/dL CSF West Nile Virus COVID-19 ([facility]) (Negative) COVID-19 Clin Com 11/07/20 Range/Units Unknown WBC (4.8-10.8) X10*3/uL RBC (4.20-5.50) X10*6/uL Hgb (12.0-16.0) g/dl Hct (37-47) % MCV (80-98) fL MCH (27.0-33.0) pg MCHC (31.0-35.0) g/dl RDW (11.0-16.0) % Plt Count (160-400) X10*3/uL MPV (9.4-12.3) fL Immature Gran % (Auto) (0.0-0.4) % Neut % (Auto) (45-73) % Lymph % (Auto) (20-40) % [place] % (Auto) (2-11) % Eos % (Auto) (0-4) % Baso % (Auto) (0-2) % Lymph # (Auto) (1.2-4.9) X10*3/uL [place] # (Auto) (0.1-1.2) X10*3/uL Eos # (Auto) (0.0-0.4) X10*3/uL Baso # (Auto) (0.0-0.2) X10*3/uL Abs Immat Gran (auto) (0.00-0.03) X10*3/uL Absolute Neuts (auto) (2.0-8.3) X10*3/uL Absolute Nucleated RBC (0.0-0.012) X10*3/uL Nucleated RBC % (auto) (0.0-0.2) /100WBC PT (9.9-13.0) SEC INR (0.9-1.1) Sodium (135-145) mmol/L Potassium (3.3-5.1) mmol/L Chloride (96-108) mmol/L Carbon Dioxide (22-29) mmol/L Anion Gap (12-20) BUN (9-16) mg/dL Creatinine (0.5-1.4) mg/dL Estim Creat Clear Calc Estimated GFR Random Glucose (60-115) mg/dL Lactic Acid (0.5-2.0) mmol/L Calcium (8.4-10.2) mg/dL Magnesium (1.6-2.6) mg/dL Total Bilirubin (0.0-1.0) mg/dL Direct Bilirubin (0.0-0.5) mg/dL AST (5-31) U/L ALT (0-31) U/L Alkaline Phosphatase (39-117) U/L Total Protein (6.5-8.0) g/dL Albumin (3.5-5.0) g/dL Urine Color Urine Appearance Urine pH (5.0-8.0) Ur Specific [place] (1.005-1.025) Urine Protein (NEG-TRACE) MG/DL Urine Glucose (UA) (NEG) MG/DL Urine Ketones (NEG) MG/DL Urine Blood (NEG) Urine Nitrite (NEG) Ur Leukocyte Esterase (NEG) Urine RBC (0) /HPF Urine WBC (0-4) /HPF Ur Squamous Epith Cells /LPF Urine Bacteria /LPF Urine Test (NEGATIVE) CSF Tube Number CSF Volume ML CSF Appearance CSF Color CSF WBC MM*3 CSF RBC MM*3 CSF Neutrophils % CSF Lymphocytes % CSF Monocytes % % CSF Other Cells % % CSF Appearance (b) CSF Glucose mg/dL CSF Total Protein (15-45) mg/dL CSF West Nile Virus TNP COVID-19 ([facility]) (Negative) COVID-19 Clin Com Imaging Data Chest x-ray: Attestation: I personally reviewed and interpreted this imaging study as follows: Radiologist's impression: [address] [id number] ReportSigned Patient: Michelle Miguel MMR#: [id number]: [id number]:[id number]/Sex: 45 / FADM Date: 11/07/20Loc: EDAttending Dr: Ordering Physician: ASAEL COLINDRES NP Date of Service: 11/07/20 Procedure(s): XR chest 2V Accession Number(s): [id number] cc: ASAEL COLINDRES NP~ EXAMINATION: XR CHEST CLINICAL INFORMATION: Fever COMPARISON: November 05, 2020 TECHNIQUE: 2 views of the chest were obtained. FINDINGS: There is no evidence of acute parenchymal disease, pneumothorax, or pleural effusion. Heart normal size. No evidence of pulmonary edema. Calcific tendinitis of the right shoulder is evident. XR/XR chest 2V IMPRESSION: No acute disease. CT scan - head: Attestation: I personally reviewed and interpreted this imaging study as follows: Radiologist's impression: FINDINGS: There is no evidence of acute intracranial hemorrhage or territorial infarction. No abnormal mass effect or midline shift is seen. Pozo to white matter differentiation is well preserved. No extra-axial fluid collections are identified. The ventricles are normal in size. There is no abnormal attenuation within the brain parenchyma. The osseous structures and soft tissues are normal. The mastoid air cells and visualized portions of the paranasal sinuses are well aerated. CT/CT head/brain wo con IMPRESSION: No acute intracranial pathology. ECG Data ECG #1: Attestation: I personally reviewed and interpreted this ECG as follows: ECG interpretation date: 11/07/20 ECG interpretation time: 09:26 Interpretation: Sinus tachycardia with a rate of 103, normal ID, normal QRS, normal QT Critical Care Time Critical Care Time Critical Care Time: Yes Total Critical Care Time: 60 Attestation: Multiple re-evaluations for pain control, discussion with specialis ts, lumbar puncture, discussion with admission team Discharge Plan Discharge Clinical Impression: Fever, Tick bite, Headache Patient Disposition: Admitted As Inpatient
[2020-11-07 09:06] LABS: MANUAL DIFF FLAG NO
[2020-11-07 09:09] LABS: Basophils Percent Auto 0.4 % (0-2); Hematocrit 41.7 % (37-47); Imm Gran Abs Auto 0.01 X10*3/uL (0.00-0.03); Imm Gran Pct Auto 0.2 % (0.0-0.4); Lymphocytes Absolute Auto 0.5 X10*3/uL (1.2-4.9); Lymphocytes Percent Auto 9.7 % (20-40); Mean Corpuscular Hemoglobin 29.7 pg (27.0-33.0); Mean Corpuscular Volume 82.6 fL (80-98); Mean Platelet Volume 9.2 fL (9.4-12.3); Monocytes Absolute Auto 0.6 X10*3/uL (0.1-1.2); Monocytes Percent Auto 11.1 % (2-11); Neutrophils Absolute Auto 3.9 X10*3/uL (2.0-8.3); Neutrophils Percent Auto 78.6 % (45-73); Platelet Count 216 X10*3/uL (160-400); Red Blood Count 5.05 X10*6/uL (4.20-5.50); Red Cell Distribution Width 12.3 % (11.0-16.0); White Blood Count 4.9 X10*3/uL (4.8-10.8)
[2020-11-07 09:19] LABS: INTERNATIONAL NORM RATIO 1.4 (0.9-1.1); Prothrombin Time 15.6 SEC (9.9-13.0)
[2020-11-07 09:21] LABS: Glucose Urine UA NEG (NEG); Leukocyte Esterase Urine NEG (NEG); Nitrite Urine NEG (NEG); Specific Gravity - Urine <= 1.005 (1.005-1.025); Urine Blood 2+ (NEG); Urine Ketones 5 MG/DL (NEG); Urine Protein TRACE MG/DL (NEG-TRACE)
[2020-11-07] MEDS: Metoclopramide HCl 10 MG/2 ML VIAL IVPUSH (09:21)
[2020-11-07] MEDS: diphenhydrAMINE HCL 50 MG/ML VIAL 25 MG IVPUSH (09:21)
[2020-11-07] MEDS: Ketorolac Tromethamine 30 MG/ML VIAL IVPUSH (09:21)
[2020-11-07 09:22] LABS: COVID-19 Test Negative (Negative)
[2020-11-07 09:23] LABS: Appearance Urine CLEAR; Color Urine YELLOW
[2020-11-07] MEDS: cefTRIAXone sodium 2 GM in 0.9 % Sodium Chloride 50 ML IV (09:30)
[2020-11-07 09:33] LABS: Squamous Epithelial Cell Urine 2+ /LPF; WBC Urine 0 /HPF (0-4)
[2020-11-07 09:34] LABS: Lactic Acid 0.9 mmol/L (0.5-2.0)
[2020-11-07 09:44] LABS: Alanine Aminotransferase 56 U/L (0-31); Albumin Level 4.2 g/dL (3.5-5.0); Alkaline Phosphatase 76 U/L (39-117); Anion Gap 13 (12-20); Aspartate Amino Transferase 48 U/L (5-31); Bilirubin Direct 0.4 mg/dL (0.0-0.5); Blood Urea Nitrogen 12 mg/dL (9-16); Calcium 9.1 mg/dL (8.4-10.2); Carbon Dioxide 26 mmol/L (22-29); Chloride 99 mmol/L (96-108); Creatinine Clr Calc Pharmacy 86.4; Estimated Glomerular Filt Rate > 60; Glucose Random 110 mg/dL (60-115); Potassium 3.2 mmol/L (3.3-5.1); Sodium 135 mmol/L (135-145); Total Protein 7.3 g/dL (6.5-8.0)
[2020-11-07] MEDS: Potassium Chloride ER 20 MEQ TAB.ER.PRT 40 MEQ PO (10:11)
[2020-11-07] MEDS: Morphine Sulfate 4 MG/ML CARTRIDGE IVPUSH ×2 (10:38→13:14)
[2020-11-07 10:51] LABS: UPreg QC Valid YES; Urine Pregnancy NEGATIVE (NEGATIVE)
[2020-11-07 14:33] LABS: CSF Appearance Clear, Colorless
[2020-11-07 14:34] LABS: CSF Tube # 1
[2020-11-07 14:45] LABS: Glucose CSF 69 mg/dL; Total Protein CSF 18.8 mg/dL (15-45)
[2020-11-07 15:02] LABS: Appearance CSF CLEAR; CSF Monos 0 %; CSF Other Cells % 0 %; CSF Tube # 4; CSF Volume 1.5 ML; Color CSF COLORLESS; Neutrophils CSF 0 %; Red Blood Cell CSF 0 MM*3; White Blood Cell CSF 1 MM*3
[2020-11-07 15:03] LABS: Lymphocytes CSF 100 %
[2020-11-07] MEDS: HYDROmorphone HCl 0.5 MG/0.5 ML SYRINGE IVPUSH (15:13)
--- NOTE | 2020-11-07 16:50 | PM.IMHP ---
History of Present Illness Date of Service: 11/07/20 Chief Complaint: headache, fever 45F presented with several days of fever and headache. Patient states she began feeling ill 5 days prior to presentation. She had body aches, lethargy, fevers, and severe headaches. The headaches started 1 day prior to presentation. Patient was in the ED 3 days prior to presentation, was felt to have a viral illness at that point, however, patient returned as she is not improved and headaches have worsened. Patient was noted to have a target lesion on her right shoulder. She is generally active and has recently been hiking, she believes she got a bite about a week or two prior to presentation, she did not see a tick. In ED patient had a fever of 100.8, LFTs 1-2 times upper limit. LP was unremarkable except for subjective noting of increased pressure. Review of Systems Review of Systems: Constitutional: fever, Chills Eyes: denies blurry vision ENT: denies sore throat CVS: denies chest pain Respiratory: Denies dyspnea GI: no abdominal pain : denies dysuria MSK: neck pain Skin: rash Neuro: denies specific motor weakness Psych: denies suicidal ideation Endocrine: denies heat/cold intoleratnce Hematologic: denies easy bleeding Allergy: denies hives [facility] Medical History Adenomyosis GERD (gastroesophageal reflux disease) Hypertension Hypothyroid Lumbar degenerative disc disease Migraine Obesity (BMI 30-39.9) Osteoarthritis Polycythemia Family History Father Alcohol abuse Mother Ovarian cancer Maternal Grandmother Breast cancer Liver cancer Paternal Aunt Breast cancer Surgical History History of appendectomy History of arthroscopy of right shoulder History of section History of inguinal hernia repair History of orthopedic surgery Social History Alcohol intake: never Patient Tobacco Use Status: Never used Tobacco Cigarette Packs Per Day: 0.5 Smoked in Last 30 Days: No Use of substances other than those prescribed or required for medical reasons: No Advance Directives: No Advance Directives Information Provided: No Patient : No Meds Allergies Allergy/AdvReac Type Severity Reaction Status Date / Time Biaxin Allergy Unknown tongue Verified 04/06/20 16:04 swelling clarithromycin [From BIAXIN] Allergy Unknown SWELLING Verified 04/06/20 16:04 AND HIVES latex [LATEX] Allergy Unknown HIVES Verified 03/06/20 13:38 oxycodone [From OXYCONTIN] Allergy Unknown ITCHINESS Verified 04/06/20 16:04 Active Medications: Current Medications Generic Name Dose Route Start Last Admin Trade Name Freq PRN Reason Stop Dose Admin Acetaminophen 650 mg 11/07/20 16:47 Acetaminophen 325 Mg Tablet PO Q6H PRN Pain, Mild (Pain Scale 1-3) Dicyclomine HCl 10 mg 11/07/20 17:00 Dicyclomine Hcl 10 Mg Capsule PO QID [facility] Enoxaparin Sodium 40 mg 11/07/20 17:00 Enoxaparin Sodium 40 Mg/0.4 Ml Syringe SUBCUT Q24H [facility] Doxycycline Hyclate 100 mg/ 250 mls @ 166.67 mls/hr 11/07/20 15:57 Sodium Chloride IV 11/07/20 17:26 ONCE ONE Lactated Ringer's 1,000 mls @ 80 mls/hr 11/07/20 16:45 Lr IVCONT .[id number] [facility] Ceftriaxone Sodium 2 gm/ 50 mls @ 100 mls/hr 11/07/20 16:45 Sodium Chloride IV Q24H [facility] Doxycycline Hyclate 100 mg/ 250 mls @ 166.67 mls/hr 11/08/20 06:00 Sodium Chloride IV Q12H [facility] Levothyroxine Sodium 200 mcg 11/08/20 06:00 Levothyroxine Sodium 200 Mcg Tablet PO DAILY@0600 [facility] Morphine Sulfate 2 mg 11/07/20 16:42 Morphine Sulfate 2 Mg/Ml Cartridge IVPUSH Q3H PRN pain Omeprazole 20 mg 11/08/20 06:30 Omeprazole 20 Mg Capsule. PO DAILY@0630 [facility] Pharmacy Consult 1 each 11/07/20 15:09 Consult Rx Perform Med Rec MISCELLANE ONCE PRN Consult order Sodium Chloride 3 ml 11/08/20 00:00 0.9 % Sodium Chloride Flush 3 Ml Syringe IVFLUSH QSHIFT [facility] Sumatriptan Succinate 50 mg 11/07/20 16:38 Sumatriptan Succinate 50 Mg Tablet PO Q2H PRN migraine Home Medications Medication Instructions Recorded Confirmed Last Taken Type dicyclomine 10 mg capsule 10 mg PO QID 04/06/20 11/07/20 11/06/20 History sumatriptan succinate 50 mg tablet 50 mg PO Q2-4H PRN 04/06/20 11/07/20 Unknown History levothyroxine [Synthroid] 25 mcg PO DAILY 11/07/20 11/07/20 11/06/20 History tramadol 1 tab PO DAILY PRN 11/07/20 11/07/20 Unknown History Physical Exam Vital Signs and Narrative: Vital Signs: Last Vital Signs Temp 98.5 F 11/07/20 14:28 Pulse 71 11/07/20 14:28 Resp 16 11/07/20 14:28 BP 94/49 L 11/07/20 14:28 Pulse Ox 97 11/07/20 14:28 Body Mass Index 37.0 General: no acute distress HEENT: atraumatic, mildly stiff Neck: normal to visual inspection CVS: S1, S2, RRR Resp: CTA bilateral Chest: non tender GI: soft, non tender, non distended : no CVA tenderness Skin: target lesion on right shoulder Extremities: no edema Neuro: Oriented X3, grossly intact Psych: cooperative Results Labs CBC and Chem 7: 11/07/20 08:59 11/07/20 08:59 Labs: Laboratory Results - last 24 hr 11/07/20 11/07/20 11/07/20 08:59 08:59 08:59 MCV 82.6 MCH 29.7 MCHC 36.0 H RDW 12.3 Plt Count 216 MPV 9.2 L Immature Gran % (Auto) 0.2 Neut % (Auto) 78.6 H Lymph % (Auto) 9.7 L Mayes % (Auto) 11.1 H Eos % (Auto) 0.0 Baso % (Auto) 0.4 Lymph # (Auto) 0.5 L Mayes # (Auto) 0.6 Eos # (Auto) 0.0 Baso # (Auto) 0.0 Abs Immat Gran (auto) 0.01 Absolute Neuts (auto) 3.9 Absolute Nucleated RBC 0.000 Nucleated RBC % (auto) 0.0 PT 15.6 H INR 1.4 H Anion Gap 13 Estim Creat Clear Calc 86.4 Estimated GFR > 60 Random Glucose 110 Lactic Acid Calcium 9.1 Magnesium 2.0 Total Bilirubin 1.0 Direct Bilirubin 0.4 AST 48 H D ALT 56 H Alkaline Phosphatase 76 D Total Protein 7.3 Albumin 4.2 Urine Color Urine Appearance Urine pH Ur Specific [place] Urine Protein Urine Glucose (UA) Urine Ketones Urine Blood Urine Nitrite Ur Leukocyte Esterase Urine RBC Urine WBC Ur Squamous Epith Cells Urine Bacteria Urine Test CSF Tube Number CSF Volume CSF Appearance CSF Color CSF WBC CSF RBC CSF Neutrophils CSF Lymphocytes CSF Monocytes % CSF Other Cells % CSF Appearance (b) CSF Glucose CSF Total Protein CSF West Nile Virus COVID-19 ([facility]) COVID-19 Clin Com 11/07/20 11/07/20 11/07/20 08:59 08:59 09:12 MCV MCH MCHC RDW Plt Count MPV Immature Gran % (Auto) Neut % (Auto) Lymph % (Auto) Mayes % (Auto) Eos % (Auto) Baso % (Auto) Lymph # (Auto) Mayes # (Auto) Eos # (Auto) Baso # (Auto) Abs Immat Gran (auto) Absolute Neuts (auto) Absolute Nucleated RBC Nucleated RBC % (auto) PT INR Anion Gap Estim Creat Clear Calc Estimated GFR Random Glucose Lactic Acid 0.9 Calcium Magnesium Total Bilirubin Direct Bilirubin AST ALT Alkaline Phosphatase Total Protein Albumin Urine Color YELLOW Urine Appearance CLEAR Urine pH 7.0 Ur Specific [place] <= 1.005 Urine Protein TRACE Urine Glucose (UA) NEG Urine Ketones 5 Urine Blood 2+ H Urine Nitrite NEG Ur Leukocyte Esterase NEG Urine RBC 5-9 H Urine WBC 0 Ur Squamous Epith Cells 2+ Urine Bacteria NONE Urine Test CSF Tube Number CSF Volume CSF Appearance CSF Color CSF WBC CSF RBC CSF Neutrophils CSF Lymphocytes CSF Monocytes % CSF Other Cells % CSF Appearance (b) CSF Glucose CSF Total Protein CSF West Nile Virus COVID-19 ([facility]) Negative COVID-19 Clin Com See Note 11/07/20 11/07/20 11/07/20 09:12 13:45 13:45 MCV MCH MCHC RDW Plt Count MPV Immature Gran % (Auto) Neut % (Auto) Lymph % (Auto) Mayes % (Auto) Eos % (Auto) Baso % (Auto) Lymph # (Auto) Mayes # (Auto) Eos # (Auto) Baso # (Auto) Abs Immat Gran (auto) Absolute Neuts (auto) Absolute Nucleated RBC Nucleated RBC % (auto) PT INR Anion Gap Estim Creat Clear Calc Estimated GFR Random Glucose Lactic Acid Calcium Magnesium Total Bilirubin Direct Bilirubin AST ALT Alkaline Phosphatase Total Protein Albumin Urine Color Urine Appearance Urine pH Ur Specific [place] Urine Protein Urine Glucose (UA) Urine Ketones Urine Blood Urine Nitrite Ur Leukocyte Esterase Urine RBC Urine WBC Ur Squamous Epith Cells Urine Bacteria Urine Test NEGATIVE CSF Tube Number 1 4 CSF Volume 1.5 CSF Appearance CLEAR CSF Color COLORLESS CSF WBC 1 CSF RBC 0 CSF Neutrophils 0 CSF Lymphocytes 100 CSF Monocytes % 0 CSF Other Cells % 0 CSF Appearance (b) Clear, Colorless CSF Glucose 69 CSF Total Protein 18.8 CSF West Nile Virus COVID-19 ([facility]) COVID-19 Clin Com 11/07/20 Unknown MCV MCH MCHC RDW Plt Count MPV Immature Gran % (Auto) Neut % (Auto) Lymph % (Auto) Mayes % (Auto) Eos % (Auto) Baso % (Auto) Lymph # (Auto) Mayes # (Auto) Eos # (Auto) Baso # (Auto) Abs Immat Gran (auto) Absolute Neuts (auto) Absolute Nucleated RBC Nucleated RBC % (auto) PT INR Anion Gap Estim Creat Clear Calc Estimated GFR Random Glucose Lactic Acid Calcium Magnesium Total Bilirubin Direct Bilirubin AST ALT Alkaline Phosphatase Total Protein Albumin Urine Color Urine Appearance Urine pH Ur Specific [place] Urine Protein Urine Glucose (UA) Urine Ketones Urine Blood Urine Nitrite Ur Leukocyte Esterase Urine RBC Urine WBC Ur Squamous Epith Cells Urine Bacteria Urine Test CSF Tube Number CSF Volume CSF Appearance CSF Color CSF WBC CSF RBC CSF Neutrophils CSF Lymphocytes CSF Monocytes % CSF Other Cells % CSF Appearance (b) CSF Glucose CSF Total Protein CSF West Nile Virus TNP COVID-19 ([facility]) COVID-19 Clin Com Imaging Radiologist's Impressions: Impressions Chest X-Ray 11/07/20 08:36 IMPRESSION: No acute disease. Head CT 11/07/20 10:22 IMPRESSION: No acute intracranial pathology. Assessment and Plan (1) Fever: Status: Acute 45F presented with fevers fevers concern for tickborne illness rocephin, doxy follow up csf studies ID eval hypothyroid recent tsh 0.03, check repeat with reflex t4, willd ecreased synthroid to 200mcg from 225mcg for now RA outpaitnet follow up gerd ppi htn relative hypotensin hold hctz Quality Stroke Does the patient have a stroke diagnosis?: No VTE Prior VTE?: No VTE Risk Level:: Medical - moderate - high VTE Device Contraindication: Treatment Not Indicated VTE Drug Contraindication: N/A - Med Ordered
[2020-11-07] MEDS: Acetaminophen 325 MG TABLET 650 MG PO (17:07)
[2020-11-07] MEDS: Morphine Sulfate 2 MG/ML CARTRIDGE IVPUSH ×2 (17:08→20:08)
[2020-11-07] MEDS: Doxycycline Hyclate 100 MG in 0.9 % Sodium Chloride 250 ML 166.67 MG IV (17:08)
[2020-11-07] MEDS: Dicyclomine HCl 10 MG CAPSULE PO (17:09)
[2020-11-07] MEDS: Lactated Ringers 1,000 ML 80 ML IVCONT (19:30)
--- NOTE | 2020-11-07 22:45 | MHC.CM.PN ---
CM met with admitted patient, with bed pending. 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 Pt lives alone, has no DME and no services. D/C plan is home without services. Transportation provided by family. No HCP on file. Pt declines at this time. CM to follow for d/c needs.
--- NOTE | 2020-11-07 23:11 | PC.NURSE ---
Report given upstairs to RN. pending transport by [facility].
[2020-11-08] MEDS: Morphine Sulfate 2 MG/ML CARTRIDGE IVPUSH ×2 (00:07→05:20)
[2020-11-08 04:00] VITALS: BP 127/81; PULSE 84; RESP 16; TEMP 36.3; O2SAT 99
[2020-11-08] MEDS: Levothyroxine Sodium 200 MCG TABLET PO (05:19)
[2020-11-08] MEDS: Omeprazole 20 MG CAPSULE.DR PO (05:19)
[2020-11-08] MEDS: Doxycycline Hyclate 100 MG in 0.9 % Sodium Chloride 250 ML 166.67 MG IV ×2 (05:36→18:47)
[2020-11-08 06:54] LABS: Hematocrit 39.8 % (37-47); Hemoglobin 13.6 g/dl (12.0-16.0); Mean Corpuscular HGB Conc 34.2 g/dl (31.0-35.0); Mean Corpuscular Hemoglobin 29.2 pg (27.0-33.0); Mean Corpuscular Volume 85.4 fL (80-98); Mean Platelet Volume 9.2 fL (9.4-12.3); Platelet Count 228 X10*3/uL (160-400); Red Blood Count 4.66 X10*6/uL (4.20-5.50); Red Cell Distribution Width 12.7 % (11.0-16.0); White Blood Count 4.7 X10*3/uL (4.8-10.8)
[2020-11-08 07:31] LABS: TSH reflex Free T4 0.11 uIU/mL (0.32-4.0)
[2020-11-08 07:35] VITALS: BP 111/74; PULSE 71; RESP 16; TEMP 36.1; O2SAT 99
[2020-11-08] MEDS: cefTRIAXone sodium 2 GM in 0.9 % Sodium Chloride 50 ML IV (08:12)
[2020-11-08] MEDS: Dicyclomine HCl 10 MG CAPSULE PO (08:14)
[2020-11-08] MEDS: Acetaminophen 325 MG TABLET 650 MG PO ×3 (08:17→21:13)
[2020-11-08 08:21] LABS: Anion Gap 11 (12-20); Blood Urea Nitrogen 13 mg/dL (9-16); Calcium 8.5 mg/dL (8.4-10.2); Carbon Dioxide 27 mmol/L (22-29); Chloride 106 mmol/L (96-108); Estimated Glomerular Filt Rate > 60; Glucose Fasting 108 mg/dL (60-99); Potassium 4.1 mmol/L (3.3-5.1); Sodium 140 mmol/L (135-145)
[2020-11-08 08:55] LABS: Free T4 (Free Thyroxine) 1.31 ng/dL (0.71-1.85)
[2020-11-08 09:02] LABS: Lyme Abs Screen <0.90 index
[2020-11-08 11:31] VITALS: BP 110/73; PULSE 66; RESP 16; TEMP 36.2; O2SAT 98
--- NOTE | 2020-11-08 12:40 | P.PNIM_ITS ---
Subjective Subjective Date of Service: 11/08/20 Interval History: headache better but still present Cardiovascular Cardiovascular: Reports no additional cardiovascular complaints Respiratory Respiratory: Reports no additional respiratory complaints Physical Exam Vital Signs: Vital Signs: Last Vital Signs Temp 97.2 F 11/08/20 11:31 Pulse 66 11/08/20 11:31 Resp 16 11/08/20 11:31 BP 110/73 11/08/20 11:31 Pulse Ox 98 11/08/20 11:31 Body Mass Index 37.0 General: AO X 3, no acute distress Resp: CTA bilateral CVS: S1,S2,RRR GI: soft, non tender, non distended Neuro: motor grossly intact Psych: appropriate affect Objective Data Current Medications Generic Name Dose Route Start Last Admin Trade Name Freq PRN Reason Stop Dose Admin Acetaminophen 650 mg 11/07/20 16:47 11/08/20 08:17 Acetaminophen 325 Mg Tablet PO 650 mg Q6H PRN Administration Pain, Mild (Pain Scale 1-3) Dicyclomine HCl 10 mg 11/07/20 17:00 11/08/20 08:14 Dicyclomine Hcl 10 Mg Capsule PO 10 mg QID [facility] Administration Enoxaparin Sodium 40 mg 11/07/20 20:00 11/07/20 19:58 Enoxaparin Sodium 40 Mg/0.4 Ml Syringe SUBCUT Not Given Q24H [facility] Lactated Ringer's 1,000 mls @ 80 mls/hr 11/07/20 16:45 11/08/20 06:39 Lr IVCONT Not Given .[id number] [facility] Ceftriaxone Sodium 2 gm/ 50 mls @ 100 mls/hr 11/08/20 09:00 11/08/20 09:15 Sodium Chloride IV Infused Q24H [facility] Infusion Doxycycline Hyclate 100 mg/ 250 mls @ 166.67 mls/hr 11/08/20 06:00 11/08/20 08:01 Sodium Chloride IV Infused Q12H [facility] Levothyroxine Sodium 200 mcg 11/08/20 06:00 11/08/20 05:19 Levothyroxine Sodium 200 Mcg Tablet PO 200 mcg DAILY@0600 [facility] Administration Morphine Sulfate 2 mg 11/07/20 16:42 11/08/20 05:20 Morphine Sulfate 2 Mg/Ml Cartridge IVPUSH 2 mg Q3H PRN Administration pain Omeprazole 20 mg 11/08/20 06:30 11/08/20 05:19 Omeprazole 20 Mg Capsule. PO 20 mg DAILY@0604 [facility] Administration Pharmacy Consult 1 each 11/07/20 15:09 Consult Rx Perform Med Rec MISCELLANE ONCE PRN Consult order Sodium Chloride 3 ml 11/08/20 00:00 11/08/20 08:04 0.9 % Sodium Chloride Flush 3 Ml Syringe IVFLUSH Not Given QSHIFT [facility] Sumatriptan Succinate 50 mg 11/07/20 16:38 Sumatriptan Succinate 50 Mg Tablet PO Q2H PRN migraine Labs CBC & Chem 7: 11/08/20 05:48 11/08/20 05:48 Labs: Laboratory Results - last 24 hr 11/07/20 11/07/20 11/07/20 08:59 13:45 13:45 WBC RBC Hgb Hct MCV MCH MCHC RDW Plt Count MPV Absolute Nucleated RBC Nucleated RBC % (auto) Sodium Potassium Chloride Carbon Dioxide Anion Gap BUN Creatinine Estim Creat Clear Calc Estimated GFR Fasting Glucose Calcium TSH Free T4 CSF Tube Number 1 4 CSF Volume 1.5 CSF Appearance CLEAR CSF Color COLORLESS CSF WBC 1 CSF RBC 0 CSF Neutrophils 0 CSF Lymphocytes 100 CSF Monocytes % 0 CSF Other Cells % 0 CSF Appearance (b) Clear, Colorless CSF Glucose 69 CSF Total Protein 18.8 CSF Mening/Enceph PCR CSF West Nile Virus Lyme Screen IgG & IgM <0.90 11/07/20 11/07/20 11/08/20 13:45 Unknown 05:48 WBC 4.7 L RBC 4.66 Hgb 13.6 Hct 39.8 MCV 85.4 MCH 29.2 MCHC 34.2 RDW 12.7 Plt Count 228 MPV 9.2 L Absolute Nucleated RBC 0.000 Nucleated RBC % (auto) 0.0 Sodium Potassium Chloride Carbon Dioxide Anion Gap BUN Creatinine Estim Creat Clear Calc Estimated GFR Fasting Glucose Calcium TSH Free T4 CSF Tube Number CSF Volume CSF Appearance CSF Color CSF WBC CSF RBC CSF Neutrophils CSF Lymphocytes CSF Monocytes % CSF Other Cells % CSF Appearance (b) CSF Glucose CSF Total Protein CSF Mening/Enceph PCR SEE NOTE CSF West Nile Virus TNP Lyme Screen IgG & IgM 11/08/20 05:48 WBC RBC Hgb Hct MCV MCH MCHC RDW Plt Count MPV Absolute Nucleated RBC Nucleated RBC % (auto) Sodium 140 Potassium 4.1 D Chloride 106 Carbon Dioxide 27 Anion Gap 11 L BUN 13 Creatinine 0.77 Estim Creat Clear Calc 101.0 Estimated GFR > 60 Fasting Glucose 108 H Calcium 8.5 D TSH 0.11 L Free T4 1.31 CSF Tube Number CSF Volume CSF Appearance CSF Color CSF WBC CSF RBC CSF Neutrophils CSF Lymphocytes CSF Monocytes % CSF Other Cells % CSF Appearance (b) CSF Glucose CSF Total Protein CSF Mening/Enceph PCR CSF West Nile Virus Lyme Screen IgG & IgM Microbiology Microbiology Results: Microbiology 11/07/20 09:12 Blood Culture - Preliminary Blood - Venous No growth after 24 hours. 11/07/20 08:58 Blood Culture - Preliminary Blood - Venous No growth after 24 hours. 11/07/20 13:45 Gram Stain - Final Cerebrospinal Fluid CSF Examination - Final Fluid Description - Final CSF Culture - Preliminary No growth after 1 day Quality Stroke Does the patient have a stroke diagnosis?: No VTE Prior VTE?: No VTE Risk Level:: Medical - moderate - high VTE Device Contraindication: Treatment Not Indicated VTE Drug Contraindication: N/A - Med Ordered Assessment and Plan (1) Fever: Status: Acute Assessment and Plan: 45F presented with fevers fevers concern for tickborne illness continue rocephin, doxy menigitis/encephalitis panel negative lyme screen negative for igM and igG ID eval hypothyroid recent tsh 0.03, repeat 0.11 with reflex t4 normal 1.31, decreased synthroid to 200mcg from 225mcg RA outpatient follow up gerd ppi htn relative hypotensin hold hctz
[2020-11-08] MEDS: Lactated Ringers 1,000 ML 80 ML IVCONT (13:28)
[2020-11-08 15:24] VITALS: BP 112/68; PULSE 70; RESP 12; TEMP 36.2; O2SAT 97
[2020-11-08 19:18] VITALS: BP 127/75; PULSE 71; RESP 16; TEMP 36.3; O2SAT 99
--- NOTE | 2020-11-08 21:07 | PC.NURSE ---
P patient refuses Lovenox I Dr. Pearce notified E-encouraged ambulation
[2020-11-08 21:55] LABS: Lyme (B. burgdorferi) PCR NOT DETECTED (NOT DETECTED)
[2020-11-08 23:11] VITALS: BP 116/56; PULSE 80; RESP 16; TEMP 36.2; O2SAT 98
[2020-11-09] MEDS: Morphine Sulfate 2 MG/ML CARTRIDGE IVPUSH (01:13)
[2020-11-09] MEDS: Lactated Ringers 1,000 ML 80 ML IVCONT (02:12)
[2020-11-09 03:13] VITALS: BP 113/65; PULSE 85; RESP 18; TEMP 36.2; O2SAT 99
[2020-11-09] MEDS: Acetaminophen 325 MG TABLET 650 MG PO ×2 (03:30→09:30)
[2020-11-09 04:36] VITALS: RESP 18
[2020-11-09] MEDS: Omeprazole 20 MG CAPSULE.DR PO (05:52)
[2020-11-09] MEDS: Doxycycline Hyclate 100 MG in 0.9 % Sodium Chloride 250 ML 166.67 MG IV (05:52)
[2020-11-09] MEDS: Levothyroxine Sodium 200 MCG TABLET PO (05:52)
[2020-11-09 07:13] VITALS: BP 113/77; PULSE 77; RESP 18; TEMP 36.1; O2SAT 99
[2020-11-09 08:00] VITALS: BP 113/77; PULSE 77; RESP 18; TEMP 36.1; O2SAT 99
--- NOTE | 2020-11-09 09:16 | PM.DS ---
DS: Providers Provider Date of Service: 11/09/20 Date of admission: 11/07/20 16:45 Primary care physician: Duong Ram MD Consults: 11/07/20 16:42 Consult to Infectious Diseases Routine Consulting Provider: Iris Villalobos Reason for consultation: fever, target lesion, headaches DS: Diagnosis Discharge Diagnosis (1) Fever: Status: Acute DS: Medications Discharge Medications Home Medications: Home Medications Medication Instructions Recorded Confirmed dicyclomine 10 mg capsule 10 mg PO QID 04/06/20 11/07/20 sumatriptan succinate 50 mg tablet 50 mg PO Q2-4H PRN 04/06/20 11/07/20 levothyroxine [Synthroid] 25 mcg PO DAILY 11/07/20 11/07/20 tramadol 1 tab PO DAILY PRN 11/07/20 11/07/20 Previous Rx's Medication Instructions Recorded hydrochlorothiazide 25 mg tablet 25 mg PO DAILY #90 tab 04/06/20 pantoprazole 40 mg tablet,delayed 40 mg PO DAILY #90 tab 04/06/20 release levothyroxine 200 mcg tablet 200 mcg PO DAILY #90 tab 10/02/20 doxycycline hyclate 100 mg PO BID #14 cap 11/09/20 DS: Summary Hospital Course Hospital Course: patient was admitted for fevers, headache in setting of suspected Tick bite. she was treated with iv ceftriaxone and doxycyline. CSF meningo/encephalitis panel was negative, Lymp serologies and pcr were negative, parasitic serologies are still pending and should be follow up outpatient. patients fevers resolved, her headache is still present but improving, case was discussed with ID and recommendations were to complete course of oral doxycyine. Time Spent with Patient Time attestation: Total time spent providing and/or coordinating discharge services: Discharge coordination time: Greater than 30 minutes Quality: Stroke Does the patient have a stroke diagnosis?: No Physical Exam Vital Signs: Vital Signs: Last Vital Signs Temp 97.0 F 11/09/20 08:00 Pulse 77 11/09/20 08:00 Resp 18 11/09/20 08:00 BP 113/77 11/09/20 08:00 Pulse Ox 99 11/09/20 08:00 Body Mass Index 37.0 General: AO X 3, no acute distress Resp: CTA bilateral CVS: S1,S2,RRR GI: soft, non tender, non distended Neuro: motor grossly intact Psych: appropriate affect DS: Data Data Completed and Pending Labs on day of discharge: Laboratory Results - last 24 hr 11/07/20 13:45 Fld Lyme DNA (PCR) Lyme Disease DNA (PCR) NOT DETECTED Preliminary micro results at discharge 11/07/20 13:45 CSF Culture - Preliminary Cerebrospinal Fluid No growth after 2 days 11/07/20 09:12 Blood Culture - Preliminary Blood - Venous No growth after 24 hours. 11/07/20 08:58 Blood Culture - Preliminary Blood - Venous No growth after 24 hours. Discharge Plan Discharge Patient Disposition: Home, Self-Care Discharge Diagnosis: suspected tick borne illness Referrals: Po,Duong Mac MD [Primary Care Provider] - 1 Week Discharge Medications: New doxycycline hyclate 100 mg capsule 100 mg PO BID Qty: 14 RF: 0 Continued levothyroxine [Synthroid] 200 mcg tablet 200 mcg PO DAILY Qty: 90 RF: 2 tramadol 50 mg tablet 1 tab PO DAILY PRN (Reason: Back Pain) RF: 0 levothyroxine [Synthroid] 25 mcg tablet 25 mcg PO DAILY RF: 0 sumatriptan succinate [Imitrex] 50 mg tablet 50 mg PO Q2-4H PRN (Reason: migraine) RF: 0 dicyclomine 10 mg capsule 10 mg PO QID RF: 0 pantoprazole 40 mg tablet,delayed release (DR/EC) 40 mg PO DAILY Qty: 90 RF: 2 hydrochlorothiazide 25 mg tablet 25 mg PO DAILY Qty: 90 RF: 2 Discharge Orders: Discharge Order (Routine); Ordered 11/09/20 Ordered By: Fernando Corea Activity on Discharge: As tolerated Stand Alone Forms: Patient Portal Discharge page Care Plan Goals: recovery Health Concerns: suspected tick borne infection Plan of Treatment: 7 more days of oral doxycyline, follow up pending labs from hospital such as babesia, anaplasma Assessment: see above
--- NOTE | 2020-11-09 09:24 | MHC.CM.PN ---
PATIENT IS DISCHARGED HOME - SELF CARE. RN AWARE OF PLAN.
[2020-11-09] MEDS: Dicyclomine HCl 10 MG CAPSULE PO (09:30)
[2020-11-09] MEDS: 0.9 % Sodium Chloride Flush 3 ML SYRINGE IVFLUSH (09:30)
[2020-11-09] MEDS: cefTRIAXone sodium 2 GM in 0.9 % Sodium Chloride 50 ML IV (09:30)
[2020-11-10 18:22] LABS: VDRL Qualitative CSF Nonreactive (Nonreactive)
[2020-11-11 06:22] LABS: HSV 1 DNA, CSF Not Detected (Not Detected); HSV 2 DNA, CSF Not Detected (Not Detected); Specimen Source CSF
[2020-11-14 22:42] LABS: Lyme IgG CSF Immunoblot NO BANDS DETECTED; Lyme IgM CSF Immunoblot NO BANDS DETECTED
[2020-11-15 05:11] LABS: Babesia IgG <1:64 titer (<1:64); Babesia IgM <1:20 titer (<1:20)
[2020-11-22 01:41] LABS: A. Phagocytophilum Ab IgG <1:64 (<1:64); A. Phagocytophilum Ab IgM <1:20 (<1:20); E. Chaffeensis Ab IgG <1:64 (<1:64); E. Chaffeensis Ab IgM <1:20 (<1:20)
== END 2020-11-09 10:22 | disposition home or self-care (01) | DRG 103 ==
LOC: HO.ED 16:40 → HO.EDOVER 17:23 → HO.S3 22:45
PROVIDERS: Nurse Practitioner Family; Admitting Provider Internal Medicine; Emergency Provider Emergency Medicine; PCP Internal Medicine; Visit Provider Internal Medicine
DX: R51.9 Headache, unspecified (principal); A26.0 Cutaneous erysipeloid; K21.9 Gastro-esophageal reflux disease without esophagitis; E03.9 Hypothyroidism, unspecified; M06.9 Rheumatoid arthritis, unspecified; I10 Essential (primary) hypertension; Z20.822 Contact with and (suspected) exposure to COVID-19; Z88.5 Allergy status to narcotic agent; Z79.890 Hormone replacement therapy; Z79.891 Long term (current) use of opiate analgesic; Z79.899 Other long term (current) drug therapy
CPT/HCPCS: 36415; 70450; 71046; 80048; 80076; 81001; 81025; 82945; 83605; 83735; 84157; 84439; 84443; 85025; 85027; 85610; 86592; 86617; 86618; 86666; 86753; 87015; 87040; 87070; 87205; 87476; 87529; 87635; 89051; 93005; 99285; J0696; J1170; J1200; J1885; J2270; J2765

== ENCOUNTER 2021-02-05 12:25 | Outpatient (REF) | payer OTHER, SELFPAY ==
[2021-02-05 14:05] LABS: Alanine Aminotransferase 47 U/L (0-31); Albumin Level 4.7 g/dL (3.5-5.0); Alkaline Phosphatase 60 U/L (39-117); Anion Gap 13 (12-20); Aspartate Amino Transferase 29 U/L (5-31); Bilirubin Total 0.6 mg/dL (0.0-1.0); Blood Urea Nitrogen 13 mg/dL (9-16); Calcium 9.9 mg/dL (8.4-10.2); Carbon Dioxide 29 mmol/L (22-29); Chloride 100 mmol/L (96-108); Estimated Glomerular Filt Rate > 60; Glucose Random 92 mg/dL (60-115); Potassium 4.3 mmol/L (3.3-5.1); Sodium 138 mmol/L (135-145); Total Protein 7.7 g/dL (6.5-8.0)
[2021-02-05 14:24] LABS: Erythrocyte Sedimentation Rate 5 MM/HR (0-20)
[2021-02-05 14:30] LABS: Free T4 (Free Thyroxine) 1.41 ng/dL (0.71-1.85); Thyroid Stimulating Hormone 0.71 uIU/mL (0.32-4.0)
[2021-02-05 14:34] LABS: Vitamin B12 361 pg/mL (200-900)
[2021-02-06 10:42] LABS: Lyme Blot 4.46 index
[2021-02-07 08:54] LABS: Lyme Abs Screen POSITIVE
[2021-02-07 14:37] LABS: 18 KD (IgG) Band NON-REACTIVE; 23 KD (IgG) Band NON-REACTIVE; 23 KD (IgM) Band REACTIVE; 28 KD (IgG) Band NON-REACTIVE; 30 KD (IgG) Band NON-REACTIVE; 39 KD (IgM) Band NON-REACTIVE; 41 KD (IgM) Band NON-REACTIVE; 45 KD (IgG) Band NON-REACTIVE; 58 KD (IgG) Band NON-REACTIVE; 66 KD (IgG) Band NON-REACTIVE; 93 KD (IgG) Band NON-REACTIVE; Lyme IgG Blot Interp NEGATIVE (NEGATIVE); Lyme IgM Blot Interp NEGATIVE (NEGATIVE)
== END 2021-02-05 12:26 | disposition home or self-care (01) ==
LOC: HO.LAB 12:25
PROVIDERS: PCP Internal Medicine; Visit Provider Internal Medicine
DX: E03.9 Hypothyroidism, unspecified (principal); A69.23 Arthritis due to Lyme disease; M06.9 Rheumatoid arthritis, unspecified; G47.00 Insomnia, unspecified; K21.9 Gastro-esophageal reflux disease without esophagitis
CPT/HCPCS: 36415; 80053; 82607; 82746; 84439; 84443; 85652; 86140; 86617; 86618

== ENCOUNTER 2021-03-29 11:33 | Outpatient (REF) | payer OTHER, SELFPAY ==
--- NOTE | ~2021-03-29 | XR_ITS ---
EXAMINATION: XR HAND, LEFT XR HAND, RIGHT CLINICAL INFORMATION: Rheumatoid arthritis COMPARISON: None TECHNIQUE: 4 views of each hand. FINDINGS: Left: 4 views of the left hand do not demonstrate evidence for bony erosion. There is no evidence for osteopenia. Some mild degeneration of the 1st digit articulation. Alignment is felt to be within normal limits. No significant degenerative change. Right: 4 views of the right hand again show no bony erosion or osteopenia. No significant degeneration. Some mild degeneration in the region of the 1st digit. Alignment is felt to be within normal limits. XR/XR hand wrist LT IMPRESSION: No bony erosion or osteopenia seen here. Alignment is within normal limits. No significant degeneration. Some mild degeneration involve the articulations of the 1st digit.
--- NOTE | ~2021-03-29 | XR_ITS ---
EXAMINATION: XR HAND, LEFT XR HAND, RIGHT CLINICAL INFORMATION: Rheumatoid arthritis COMPARISON: None TECHNIQUE: 4 views of each hand. FINDINGS: Left: 4 views of the left hand do not demonstrate evidence for bony erosion. There is no evidence for osteopenia. Some mild degeneration of the 1st digit articulation. Alignment is felt to be within normal limits. No significant degenerative change. Right: 4 views of the right hand again show no bony erosion or osteopenia. No significant degeneration. Some mild degeneration in the region of the 1st digit. Alignment is felt to be within normal limits. XR/XR hand wrist RT IMPRESSION: No bony erosion or osteopenia seen here. Alignment is within normal limits. No significant degeneration. Some mild degeneration involve the articulations of the 1st digit.
[2021-03-29 12:52] LABS: MANUAL DIFF FLAG NO
[2021-03-29 14:19] LABS: Basophils Absolute Auto 0.1 X10*3/uL (0.0-0.2); Basophils Percent Auto 0.9 % (0-2); Eosinophils Absolute Auto 0.2 X10*3/uL (0.0-0.4); Eosinophils Percent Auto 3.1 % (0-4); Hematocrit 44.1 % (37.0-47.0); Hemoglobin 15.6 g/dl (12.0-16.0); Imm Gran Abs Auto 0.01 X10*3/uL (0.00-0.03); Imm Gran Pct Auto 0.1 % (0.0-0.4); Lymphocytes Absolute Auto 1.5 X10*3/uL (1.2-4.9); Lymphocytes Percent Auto 21.6 % (20-40); Mean Corpuscular HGB Conc 35.4 g/dl (31.0-35.0); Mean Corpuscular Hemoglobin 29.9 pg (27.0-33.0); Mean Corpuscular Volume 84.6 fL (80.0-98.0); Mean Platelet Volume 9.1 fL (9.4-12.3); Monocytes Absolute Auto 0.5 X10*3/uL (0.1-1.2); Monocytes Percent Auto 7.4 % (2-11); Neutrophils Absolute Auto 4.6 x10*3/uL (2.0-8.3); Neutrophils Percent Auto 66.9 % (45-73); Platelet Count 386 X10*3/uL (160-400); Red Blood Count 5.21 X10*6/uL (4.20-5.50); Red Cell Distribution Width 12.6 % (11.0-16.0); White Blood Count 6.9 X10*3/uL (4.8-10.8)
[2021-03-29 14:51] LABS: Alanine Aminotransferase 44 U/L (0-31); Albumin Level 4.7 g/dL (3.5-5.0); Alkaline Phosphatase 61 U/L (39-117); Anion Gap 14 (12-20); Aspartate Amino Transferase 27 U/L (5-31); Bilirubin Total 0.3 mg/dL (0.0-1.0); Blood Urea Nitrogen 19 mg/dL (9-16); C Reactive Protein 0.27 mg/dL (< or = 0.50); Calcium 9.9 mg/dL (8.4-10.2); Carbon Dioxide 26 mmol/L (22-29); Chloride 104 mmol/L (96-108); Estimated Glomerular Filt Rate > 60; Glucose Random 117 mg/dL (60-115); Potassium 3.9 mmol/L (3.3-5.1); Sodium 140 mmol/L (135-145); Total Protein 7.8 g/dL (6.5-8.0)
[2021-03-29 15:30] LABS: Erythrocyte Sedimentation Rate 5 MM/HR (0-20)
[2021-04-01 08:15] LABS: HBS Num1 7.07 mIU/mL (0-7.99); ~HepC Num1 0.46 S/CO (0.00-0.79); ~Hepatitis B Surface Antibody NONREACTIVE (Nonreactive); ~Hepatitis C Antibody Nonreactive (Nonreactive)
[2021-04-01 08:32] LABS: HBc Num1 0.12 S/CO (0.00-0.79); HBsAGNum1 0.27 S/CO (0.00-0.99); Hepatitis B Core Antibody Nonreactive (Nonreactive); Hepatitis B Surface Antigen Negative (Negative)
[2021-04-01 09:43] LABS: TS Negative Control Passed; TS Panel A 0; TS Panel B 0; TS Positive Control Passed; TSpotTB Negative (Negative)
[2021-04-03 08:31] LABS: Hepatitis A Antibody IgM 0.22 Index (0-0.79); ~Hepatitis A Antibody IgM Nonreactive (Nonreactive)
== END 2021-03-29 11:34 | disposition home or self-care (01) ==
LOC: HO.XRAY 11:33
PROVIDERS: PCP Internal Medicine; Visit Provider Nurse Practitioner Family
DX: M06.9 Rheumatoid arthritis, unspecified (principal)
CPT/HCPCS: 36415; 73110; 73130; 80053; 85025; 85652; 86140; 86481; 86704; 86706; 86709; 86803; 87340

== ENCOUNTER 2021-05-24 08:15 | Outpatient (REF) | payer OTHER, SELFPAY ==
[2021-05-24 08:27] LABS: MANUAL DIFF FLAG NO
[2021-05-24 08:45] LABS: Basophils Percent Auto 0.7 % (0-2); Eosinophils Absolute Auto 0.2 X10*3/uL (0.0-0.4); Eosinophils Percent Auto 3.4 % (0-4); Hematocrit 42.7 % (37.0-47.0); Hemoglobin 15.1 g/dl (12.0-16.0); Imm Gran Abs Auto 0.02 X10*3/uL (0.00-0.03); Imm Gran Pct Auto 0.3 % (0.0-0.4); Lymphocytes Absolute Auto 1.6 X10*3/uL (1.2-4.9); Lymphocytes Percent Auto 26.1 % (20-40); Mean Corpuscular HGB Conc 35.4 g/dl (31.0-35.0); Mean Corpuscular Hemoglobin 30.1 pg (27.0-33.0); Mean Corpuscular Volume 85.2 fL (80.0-98.0); Mean Platelet Volume 8.9 fL (9.4-12.3); Monocytes Absolute Auto 0.5 X10*3/uL (0.1-1.2); Monocytes Percent Auto 8.2 % (2-11); Neutrophils Absolute Auto 3.7 x10*3/uL (2.0-8.3); Neutrophils Percent Auto 61.3 % (45-73); Platelet Count 333 X10*3/uL (160-400); Red Blood Count 5.01 X10*6/uL (4.20-5.50); Red Cell Distribution Width 13.4 % (11.0-16.0)
[2021-05-24 08:57] LABS: Alanine Aminotransferase 58 U/L (0-31); Albumin Level 4.2 g/dL (3.5-5.0); Alkaline Phosphatase 57 U/L (39-117); Anion Gap 11 (12-20); Aspartate Amino Transferase 25 U/L (5-31); Bilirubin Total 0.5 mg/dL (0.0-1.0); Blood Urea Nitrogen 24 mg/dL (9-16); C Reactive Protein 0.27 mg/dL (< or = 0.50); Calcium 9.4 mg/dL (8.4-10.2); Carbon Dioxide 29 mmol/L (22-29); Chloride 104 mmol/L (96-108); Estimated Glomerular Filt Rate > 60; Glucose Random 145 mg/dL (60-115); Sodium 140 mmol/L (135-145); Total Protein 7.1 g/dL (6.5-8.0)
[2021-05-24 09:31] LABS: Erythrocyte Sedimentation Rate 4 MM/HR (0-20)
== END 2021-05-24 08:16 | disposition home or self-care (01) ==
LOC: HO.LAB 08:15
PROVIDERS: PCP Internal Medicine; Visit Provider Nurse Practitioner Family
DX: M06.9 Rheumatoid arthritis, unspecified (principal)
CPT/HCPCS: 36415; 80053; 85025; 85652; 86140

== ENCOUNTER → 2021-07-05 09:57 | Outpatient (BNVA) | payer OTHER, SELFPAY | PROVIDERS: PCP Internal Medicine; Visit Provider Nurse Practitioner Family | DX: M06.9 Rheumatoid arthritis, unspecified (principal); Z79.899 Other long term (current) drug therapy; Z87.891 Personal history of nicotine dependence | CPT/HCPCS: 99212 ==

== ENCOUNTER 2021-07-27 10:23 | Outpatient (REF) | payer OTHER, SELFPAY ==
--- NOTE | ~2021-07-27 | MM_ITS ---
EXAMINATION: MM SCREENING DIGITAL BREAST TOMOSYNTHESIS, BILATERAL CLINICAL INFORMATION: Screening. Asymptomatic. The lifetime risk of breast cancer based on the Tyrer-Cuzick Model is 12%. COMPARISON: Mammography: 06/23/2020, 05/27/2019, 11/06/2017 TECHNIQUE: Digital breast tomosynthesis is performed in both the craniocaudal and mediolateral oblique views along with computer-aided detection (CAD). Synthesized 2D images are generated from the tomosynthesis. Additional left CC view is provided. FINDINGS: There are scattered areas of fibroglandular density (ACR BI-RADS breast composition Category b). There are no significant masses, abnormal calcifications, or other abnormalities. Breast tissue composition borders on heterogeneously dense. Parenchymal pattern is similar to prior exams. There is a dermal lesion overlying the right axilla, marked with mole marker. The axilla are otherwise unremarkable. No significant changes. MM/MM tomosynthesis screening BI IMPRESSION: No mammographic evidence of malignancy. ASSESSMENT: BI-RADS 2: Benign RECOMMENDATION: Routine annual mammography screening. This patient's information was entered into a reminder system with a target due date for their next mammogram.
== END 2021-07-27 10:24 | disposition home or self-care (01) ==
LOC: HO.MAMMO 10:23
PROVIDERS: PCP Internal Medicine; Visit Provider Internal Medicine
DX: Z12.31 Encounter for screening mammogram for malignant neoplasm of breast (principal)
CPT/HCPCS: 77063; 77067

== ENCOUNTER 2021-08-16 08:46 | Outpatient (REF) | payer OTHER, SELFPAY ==
[2021-08-16 09:13] LABS: MANUAL DIFF FLAG NO
[2021-08-16 09:41] LABS: Basophils Absolute Auto 0.1 X10*3/uL (0.0-0.2); Basophils Percent Auto 0.8 % (0-2); Eosinophils Absolute Auto 0.1 X10*3/uL (0.0-0.4); Eosinophils Percent Auto 1.7 % (0-4); Hematocrit 43.4 % (37.0-47.0); Hemoglobin 15.2 g/dl (12.0-16.0); Imm Gran Abs Auto 0.02 X10*3/uL (0.00-0.03); Imm Gran Pct Auto 0.3 % (0.0-0.4); Lymphocytes Absolute Auto 1.5 X10*3/uL (1.2-4.9); Lymphocytes Percent Auto 24.8 % (20-40); Mean Corpuscular Hemoglobin 29.7 pg (27.0-33.0); Mean Corpuscular Volume 84.9 fL (80.0-98.0); Monocytes Absolute Auto 0.4 X10*3/uL (0.1-1.2); Monocytes Percent Auto 6.9 % (2-11); Neutrophils Absolute Auto 3.9 x10*3/uL (2.0-8.3); Neutrophils Percent Auto 65.5 % (45-73); Platelet Count 392 X10*3/uL (160-400); Red Blood Count 5.11 X10*6/uL (4.20-5.50); Red Cell Distribution Width 13.2 % (11.0-16.0); White Blood Count 5.9 X10*3/uL (4.8-10.8)
[2021-08-16 09:58] LABS: Alanine Aminotransferase 80 U/L (0-31); Albumin Level 4.5 g/dL (3.5-5.0); Alkaline Phosphatase 67 U/L (39-117); Anion Gap 11 (12-20); Aspartate Amino Transferase 48 U/L (5-31); Bilirubin Total 0.7 mg/dL (0.0-1.0); Blood Urea Nitrogen 17 mg/dL (9-16); C Reactive Protein 0.44 mg/dL (< or = 0.50); Carbon Dioxide 30 mmol/L (22-29); Chloride 99 mmol/L (96-108); Estimated Glomerular Filt Rate 58; Glucose Random 110 mg/dL (60-115); Potassium 4.3 mmol/L (3.3-5.1); Sodium 136 mmol/L (135-145); Total Protein 7.7 g/dL (6.5-8.0)
[2021-08-16 10:20] LABS: Free T4 (Free Thyroxine) 1.46 ng/dL (0.71-1.85); HBS Num1 > 1000.00 mIU/mL (0-7.99); HBc Num1 0.07 S/CO (0.00-0.79); HBsAGNum1 0.18 S/CO (0.00-0.99); Hepatitis B Core Antibody Nonreactive (Nonreactive); Hepatitis B Surface Antigen Negative (Negative); Thyroid Stimulating Hormone 0.87 uIU/mL (0.32-4.0); ~Hepatitis B Surface Antibody REACTIVE (Nonreactive)
[2021-08-16 10:26] LABS: Erythrocyte Sedimentation Rate 5 MM/HR (0-20)
== END 2021-08-16 08:47 | disposition home or self-care (01) ==
LOC: HO.LAB 08:46
PROVIDERS: Absent Provider Internal Medicine; PCP Internal Medicine; Visit Provider Nurse Practitioner Family
DX: M06.9 Rheumatoid arthritis, unspecified (principal); E03.9 Hypothyroidism, unspecified
CPT/HCPCS: 36415; 80053; 84439; 84443; 85025; 85652; 86140; 86704; 86706; 87340

== ENCOUNTER → 2021-09-06 09:51 | Outpatient (BNVA) | payer OTHER, SELFPAY | PROVIDERS: PCP Internal Medicine; Visit Provider Nurse Practitioner Family | DX: M06.9 Rheumatoid arthritis, unspecified (principal) ==

== ENCOUNTER 2021-10-05 09:56 | Outpatient (REF) | payer OTHER, SELFPAY ==
[2021-10-05 10:07] LABS: MANUAL DIFF FLAG NO
[2021-10-05 10:47] LABS: Basophils Percent Auto 0.7 % (0-2); Eosinophils Absolute Auto 0.2 X10*3/uL (0.0-0.4); Hematocrit 44.5 % (37.0-47.0); Hemoglobin 15.1 g/dl (12.0-16.0); Imm Gran Abs Auto 0.02 X10*3/uL (0.00-0.03); Imm Gran Pct Auto 0.3 % (0.0-0.4); Lymphocytes Absolute Auto 1.3 X10*3/uL (1.2-4.9); Lymphocytes Percent Auto 23.3 % (20-40); Mean Corpuscular HGB Conc 33.9 g/dl (31.0-35.0); Mean Corpuscular Hemoglobin 28.4 pg (27.0-33.0); Mean Corpuscular Volume 83.6 fL (80.0-98.0); Mean Platelet Volume 9.2 fL (9.4-12.3); Monocytes Absolute Auto 0.4 X10*3/uL (0.1-1.2); Monocytes Percent Auto 7.1 % (2-11); Neutrophils Absolute Auto 3.8 x10*3/uL (2.0-8.3); Neutrophils Percent Auto 65.6 % (45-73); Platelet Count 333 X10*3/uL (160-400); Red Blood Count 5.32 X10*6/uL (4.20-5.50); Red Cell Distribution Width 13.1 % (11.0-16.0); White Blood Count 5.8 X10*3/uL (4.8-10.8)
[2021-10-05 11:19] LABS: Alanine Aminotransferase 65 U/L (0-31); Albumin Level 4.3 g/dL (3.5-5.0); Alkaline Phosphatase 58 U/L (39-117); Anion Gap 13 (12-20); Aspartate Amino Transferase 35 U/L (5-31); Bilirubin Total 0.6 mg/dL (0.0-1.0); Blood Urea Nitrogen 18 mg/dL (9-16); C Reactive Protein 0.58 mg/dL (< or = 0.50); Calcium 9.4 mg/dL (8.4-10.2); Carbon Dioxide 26 mmol/L (22-29); Chloride 103 mmol/L (96-108); Estimated Glomerular Filt Rate 59; Glucose Random 189 mg/dL (60-115); Potassium 4.2 mmol/L (3.3-5.1); Sodium 138 mmol/L (135-145); Total Protein 7.2 g/dL (6.5-8.0)
[2021-10-05 11:35] LABS: Erythrocyte Sedimentation Rate 5 MM/HR (0-20)
== END 2021-10-05 09:57 | disposition home or self-care (01) ==
LOC: HO.LAB 09:56
PROVIDERS: PCP Internal Medicine; Visit Provider Nurse Practitioner Family
DX: M06.9 Rheumatoid arthritis, unspecified (principal)
CPT/HCPCS: 36415; 80053; 85025; 85652; 86140

== ENCOUNTER 2021-10-11 09:18 | Outpatient (REF) | payer OTHER, SELFPAY ==
[2021-10-11 10:41] LABS: Alanine Aminotransferase 58 U/L (0-31); Albumin Level 4.3 g/dL (3.5-5.0); Alkaline Phosphatase 58 U/L (39-117); Anion Gap 12 (12-20); Aspartate Amino Transferase 36 U/L (5-31); Bilirubin Total 0.6 mg/dL (0.0-1.0); Blood Urea Nitrogen 17 mg/dL (9-16); Calcium 9.1 mg/dL (8.4-10.2); Carbon Dioxide 25 mmol/L (22-29); Chloride 103 mmol/L (96-108); Estimated Glomerular Filt Rate > 60; Glucose Random 176 mg/dL (60-115); Potassium 3.6 mmol/L (3.3-5.1); Sodium 136 mmol/L (135-145); Total Protein 7.2 g/dL (6.5-8.0)
[2021-10-14 19:53] LABS: Lyme Blot 2.03 index
[2021-10-15 09:46] LABS: Lyme Abs Screen POSITIVE
[2021-10-15 14:51] LABS: Glucose-6-Phosphate Dehydrogen 14.4 U/g Hgb (7.0-20.5)
[2021-10-15 21:27] LABS: 18 KD (IgG) Band NON-REACTIVE; 23 KD (IgG) Band NON-REACTIVE; 23 KD (IgM) Band REACTIVE; 28 KD (IgG) Band NON-REACTIVE; 30 KD (IgG) Band NON-REACTIVE; 39 KD (IgM) Band NON-REACTIVE; 39KD (IgG) Band NON-REACTIVE; 41 KD (IgM) Band NON-REACTIVE; 41KD (IgG) Band NON-REACTIVE; 45 KD (IgG) Band NON-REACTIVE; 58 KD (IgG) Band NON-REACTIVE; 66 KD (IgG) Band NON-REACTIVE; 93 KD (IgG) Band NON-REACTIVE; Lyme IgG Blot Interp NEGATIVE (NEGATIVE); Lyme IgM Blot Interp NEGATIVE (NEGATIVE)
[2021-10-17 12:42] LABS: A. Phagocytophilum Ab IgG <1:64 (<1:64); A. Phagocytophilum Ab IgM <1:20 (<1:20); E. Chaffeensis Ab IgG <1:64 (<1:64); E. Chaffeensis Ab IgM <1:20 (<1:20)
[2021-10-17 16:07] LABS: Babesia IgG <1:64 titer (<1:64); Babesia IgM <1:20 titer (<1:20)
== END 2021-10-11 09:19 | disposition home or self-care (01) ==
LOC: HO.LAB 09:18
PROVIDERS: PCP Internal Medicine; Visit Provider Nurse Practitioner Family
DX: M25.50 Pain in unspecified joint (principal); M06.9 Rheumatoid arthritis, unspecified
CPT/HCPCS: 36415; 80053; 82955; 86617; 86618; 86666; 86753

== ENCOUNTER 2022-01-10 08:59 | Outpatient (REF) | payer OTHER, SELFPAY ==
[2022-01-10 09:09] LABS: MANUAL DIFF FLAG NO
[2022-01-10 09:30] LABS: Basophils Percent Auto 0.7 % (0-2); Eosinophils Absolute Auto 0.2 X10*3/uL (0.0-0.4); Eosinophils Percent Auto 2.9 % (0-4); Hematocrit 44.3 % (37.0-47.0); Hemoglobin 15.1 g/dl (12.0-16.0); Imm Gran Abs Auto 0.02 X10*3/uL (0.00-0.03); Imm Gran Pct Auto 0.3 % (0.0-0.4); Lymphocytes Absolute Auto 1.5 X10*3/uL (1.2-4.9); Lymphocytes Percent Auto 24.8 % (20-40); Mean Corpuscular HGB Conc 34.1 g/dl (31.0-35.0); Mean Corpuscular Volume 85.2 fL (80.0-98.0); Mean Platelet Volume 9.2 fL (9.4-12.3); Monocytes Absolute Auto 0.6 X10*3/uL (0.1-1.2); Monocytes Percent Auto 10.3 % (2-11); Neutrophils Absolute Auto 3.6 x10*3/uL (2.0-8.3); Platelet Count 307 X10*3/uL (160-400); Red Cell Distribution Width 13.8 % (11.0-16.0); White Blood Count 5.9 X10*3/uL (4.8-10.8)
[2022-01-10 09:54] LABS: Alanine Aminotransferase 58 U/L (0-31); Aspartate Amino Transferase 42 U/L (5-31); C Reactive Protein 0.62 mg/dL (< or = 0.50); Estimated Glomerular Filt Rate > 60
[2022-01-10 10:08] LABS: Erythrocyte Sedimentation Rate 2 MM/HR (0-20)
== END 2022-01-10 09:00 | disposition home or self-care (01) ==
LOC: HO.LAB 08:59
PROVIDERS: PCP Internal Medicine; Visit Provider Nurse Practitioner Family
DX: M06.9 Rheumatoid arthritis, unspecified (principal)
CPT/HCPCS: 36415; 82565; 84450; 84460; 85025; 85652; 86140

== ENCOUNTER 2022-02-26 09:42 | Outpatient (REF) | payer OTHER, SELFPAY ==
[2022-02-26 12:59] LABS: Influenza A PCR NEGATIVE (Negative); Influenza B PCR NEGATIVE (Negative); Resp Syncy Virus RNA Qual PCR NEGATIVE (Negative); SARS COV2 PCR INHOUSE NEGATIVE (Negative)
== END 2022-02-26 09:43 | disposition home or self-care (01) ==
LOC: HO.LAB 09:42
PROVIDERS: Visit Provider Nurse Practitioner Family
DX: Z20.822 Contact with and (suspected) exposure to COVID-19 (principal); R09.89 Other specified symptoms and signs involving the circulatory and respiratory systems
CPT/HCPCS: 0241U

== ENCOUNTER 2022-03-21 12:32 | Outpatient (REF) | payer OTHER, SELFPAY ==
[2022-03-21 13:42] LABS: MANUAL DIFF FLAG NO
[2022-03-21 13:46] LABS: Basophils Absolute Auto 0.1 X10*3/uL (0.0-0.2); Basophils Percent Auto 0.8 % (0-2); Eosinophils Absolute Auto 0.2 X10*3/uL (0.0-0.4); Eosinophils Percent Auto 2.4 % (0-4); Hematocrit 43.5 % (37.0-47.0); Imm Gran Abs Auto 0.03 X10*3/uL (0.00-0.03); Imm Gran Pct Auto 0.5 % (0.0-0.4); Lymphocytes Absolute Auto 1.5 X10*3/uL (1.2-4.9); Lymphocytes Percent Auto 23.4 % (20-40); Mean Corpuscular HGB Conc 34.5 g/dl (31.0-35.0); Mean Corpuscular Hemoglobin 29.5 pg (27.0-33.0); Mean Corpuscular Volume 85.5 fL (80.0-98.0); Mean Platelet Volume 9.2 fL (9.4-12.3); Monocytes Absolute Auto 0.6 X10*3/uL (0.1-1.2); Monocytes Percent Auto 9.9 % (2-11); Platelet Count 321 X10*3/uL (160-400); Red Blood Count 5.09 X10*6/uL (4.20-5.50); Red Cell Distribution Width 13.4 % (11.0-16.0); White Blood Count 6.4 X10*3/uL (4.8-10.8)
[2022-03-21 14:34] LABS: Erythrocyte Sedimentation Rate 3 MM/HR (0-20)
[2022-03-21 14:51] LABS: Alanine Aminotransferase 70 U/L (0-31); Albumin Level 4.4 g/dL (3.5-5.0); Alkaline Phosphatase 60 U/L (39-117); Anion Gap 11 (12-20); Aspartate Amino Transferase 48 U/L (5-31); Bilirubin Total 0.5 mg/dL (0.0-1.0); Blood Urea Nitrogen 19 mg/dL (9-16); C Reactive Protein 0.62 mg/dL (< or = 0.50); Calcium 9.3 mg/dL (8.4-10.2); Carbon Dioxide 28 mmol/L (22-29); Chloride 99 mmol/L (96-108); Estimated Glomerular Filt Rate > 60; Glucose Random 96 mg/dL (60-115); Potassium 3.4 mmol/L (3.3-5.1); Sodium 135 mmol/L (135-145); Total Protein 7.2 g/dL (6.5-8.0)
[2022-03-23 19:03] LABS: TS Negative Control Passed; TS Panel A 0; TS Panel B 0; TS Positive Control Passed; TSpotTB Negative (Negative)
== END 2022-03-21 12:33 | disposition home or self-care (01) ==
LOC: HO.10HDL 12:32
PROVIDERS: Visit Provider Nurse Practitioner Family
DX: Z11.1 Encounter for screening for respiratory tuberculosis (principal); M06.9 Rheumatoid arthritis, unspecified
CPT/HCPCS: 36415; 80053; 85025; 85652; 86140; 86481

== ENCOUNTER 2022-03-28 10:04 | Outpatient (REF) | payer OTHER, SELFPAY ==
--- NOTE | ~2022-03-28 | XR_ITS ---
EXAMINATION: XR KNEE, RIGHT CLINICAL INFORMATION: Osteoarthritis. COMPARISON: None TECHNIQUE: AP, lateral and sunrise views of the right knee are submitted. FINDINGS: Bony alignment and mineralization are normal. There has been a prior ACL repair. There is moderate asymmetric narrowing of the lateral joint , and the medial joint space compartment is well-maintained. There is moderate narrowing of the patellofemoral compartment. There is tricompartment peripheral osteophyte formation. No fracture or dislocation is seen. There is a small joint effusion. No foreign body is seen. XR/XR knee RT 3V IMPRESSION: 1. No fracture or dislocation is seen. 2. There is a small right knee joint effusion. 3. There is tricompartment osteoarthritic change of the right knee, most pronounced in the lateral and patellofemoral compartments, where it is moderate.
== END 2022-03-28 10:05 | disposition home or self-care (01) ==
LOC: HO.XRAY 10:04
PROVIDERS: PCP Internal Medicine; Visit Provider Nurse Practitioner Family
DX: M06.9 Rheumatoid arthritis, unspecified (principal); M25.561 Pain in right knee
CPT/HCPCS: 73562

== ENCOUNTER 2022-05-09 09:56 | Outpatient (REF) | payer OTHER, SELFPAY ==
[2022-05-09 11:27] LABS: Blood Urea Nitrogen 17 mg/dL (9-16); Estimated Glomerular Filt Rate > 60
== END 2022-05-09 09:57 | disposition home or self-care (01) ==
LOC: HO.10HDL 09:56
PROVIDERS: Visit Provider Internal Medicine
DX: R91.1 Solitary pulmonary nodule (principal); R19.7 Diarrhea, unspecified
CPT/HCPCS: 36415; 82565; 84520; 87177; 87209

== ENCOUNTER 2022-05-30 09:22 | Outpatient (REF) | payer OTHER, SELFPAY ==
--- NOTE | ~2022-05-30 | CT_ITS ---
EXAMINATION: CT CHEST WITH CONTRAST CLINICAL INFORMATION: Follow-up pulmonary nodule COMPARISON: Previous CT of the abdomen and pelvis October 2020 TECHNIQUE: Multidetector volumetric CT imaging of the chest was obtained after the administration of 50 mL of Omnipaque 350 intravenous contrast without immediate adverse reactions. Axial MIP volume rendering provided. Sagittal and coronal reformatted images were obtained. This CT examination was performed using dose optimization techniques as appropriate, variously including the following: *Automated exposure control *Adjustment of mA and/or kV according to patient size (this includes techniques or standardized protocols for targeted exams where dose is matched to indication/reason for exam; i.e. extremities or head) *Use of iterative reconstruction technique DLP: 237 mGy-cm FINDINGS: REDIPPER: Unremarkable LUNGS: There is a 3 mm peripheral or subpleural lingular nodule axial image 120 series 5. This is similar to October [address] scan. There is minimal peripheral or subpleural scarring or atelectasis in the medial right upper lobe example axial image 56 series 5. The lungs are otherwise clear. MEDIASTINUM: The mediastinum is normal. PLEURA: There is no pleural effusion. No pleural mass or thickening. AXILLA: No lymphadenopathy. UPPER ABDOMEN: Fatty liver. OSSEOUS STRUCTURES: Degenerative changes of the spine. CT/CT chest w IV con IMPRESSION: Stable lingular pulmonary nodule. No chest CT follow-up recommended. Fleischner guidelines were followed.
[2022-05-30] MEDS: iohexoL 350 MG/ML 100 ML INFUS..BTL IV (10:08)
== END 2022-05-30 09:23 | disposition home or self-care (01) ==
LOC: HO.CT 09:22
PROVIDERS: PCP Internal Medicine; Visit Provider Internal Medicine
DX: R91.1 Solitary pulmonary nodule (principal)
CPT/HCPCS: 71260; Q9967

== ENCOUNTER → 2022-06-24 15:59 | Outpatient (BNVA) | payer OTHER, SELFPAY | PROVIDERS: PCP Internal Medicine; Visit Provider Internal Medicine Endocrinology, Diabetes & Metabolism | DX: Z13.89 Encounter for screening for other disorder (principal) ==

== ENCOUNTER 2022-07-05 09:50 | Outpatient (REF) | payer OTHER, SELFPAY ==
[2022-07-05 12:36] LABS: Thyroid Stimulating Hormone 0.26 uIU/mL (0.32-4.0)
== END 2022-07-05 09:51 | disposition home or self-care (01) ==
LOC: HO.LAB 09:50
PROVIDERS: PCP Internal Medicine; Visit Provider Internal Medicine Endocrinology, Diabetes & Metabolism
DX: E03.9 Hypothyroidism, unspecified (principal)
CPT/HCPCS: 36415; 84443

== ENCOUNTER → 2022-07-25 08:10 | Outpatient (BNVA) | payer OTHER, SELFPAY | PROVIDERS: PCP Internal Medicine; Visit Provider Nurse Practitioner Family | DX: Z13.89 Encounter for screening for other disorder (principal) ==

== ENCOUNTER 2022-08-02 09:52 | Outpatient (REF) | payer OTHER, SELFPAY ==
--- NOTE | ~2022-08-02 | MM_ITS ---
EXAMINATION: MM SCREENING DIGITAL BREAST TOMOSYNTHESIS, BILATERAL CLINICAL INFORMATION: Screening. Asymptomatic. The lifetime risk of breast cancer based on the Tyrer-Cuzick Model is 12.6%. COMPARISON: Mammography: July 27, 2021 and studies dating back to July 18, 2016 TECHNIQUE: Digital breast tomosynthesis is performed in both the craniocaudal and mediolateral oblique views along with computer-aided detection (CAD). Synthesized 2D images are generated from the tomosynthesis. FINDINGS: The breasts are heterogeneously dense, which may obscure small masses (ACR BI-RADS breast composition Category c). There are no significant masses, abnormal calcifications, or other abnormalities. MM/MM tomosynthesis screening BI IMPRESSION: No significant changes ASSESSMENT: BI-RADS 1: Negative RECOMMENDATION: Routine annual mammography screening. This patient's information was entered into a reminder system with a target due date for their next mammogram.
== END 2022-08-02 09:53 | disposition home or self-care (01) ==
LOC: HO.MAMMO 09:52
PROVIDERS: PCP Internal Medicine; Visit Provider Internal Medicine
DX: Z12.31 Encounter for screening mammogram for malignant neoplasm of breast (principal)
CPT/HCPCS: 77063; 77067

== ENCOUNTER 2022-08-21 10:05 | Outpatient (REF) | payer OTHER, SELFPAY ==
[2022-08-21 13:00] LABS: Free T4 (Free Thyroxine) 1.24 ng/dL (0.71-1.85); Thyroid Stimulating Hormone 0.41 uIU/mL (0.32-4.0)
== END 2022-08-21 10:06 | disposition home or self-care (01) ==
LOC: HO.LAB 10:05
PROVIDERS: PCP Internal Medicine; Visit Provider Internal Medicine Endocrinology, Diabetes & Metabolism
DX: E03.9 Hypothyroidism, unspecified (principal)
CPT/HCPCS: 36415; 84439; 84443

== ENCOUNTER 2022-08-22 10:41 | Day surgery (SDC) | payer OTHER, SELFPAY ==
--- NOTE | 2022-08-21 11:10 | HO.ANESPROP2 ---
Documented by User: Angeline Chanel NP 08/21/22 11:12 HPI - Anesthesia Eval Consult details Narrative: 47yo F for Colonoscopy PMFSH Active Problems Active Problems: All Active Problems (Updated 08/21/22 @ 10:43 by Danae Herrera, RN) Annual physical exam (Acute) Rheumatoid arthritis (Acute) Insomnia (Acute) Fatty liver (Acute) COVID-19 virus infection (Acute) Viral upper respiratory illness (Acute) Acute bronchitis (Acute) Obesity (Acute) Colon cancer screening (Acute) Diarrhea (Acute) Pulmonary nodule (Acute) Reactive hypoglycemia (Acute) Generalized anxiety disorder (Acute) Polycythemia (Chronic) GERD (gastroesophageal reflux disease) (Acute) Lumbar degenerative disc disease (Acute) Obesity (BMI 30-39.9) (Acute) Osteoarthritis (Acute) Hypothyroid (Acute) Hypertension (Acute) Past Medical History Medical History (Updated 08/21/22 @ 10:43 by Danae Herrera RN) Abdominal pain Adenomyosis Annual physical exam Colon cancer screening Fever GERD (gastroesophageal reflux disease) Lalito's thyroiditis Headache Hypertension Hypothyroid Insomnia Lumbar degenerative disc disease Migraine Obesity (BMI 30-39.9) Osteoarthritis Polycythemia Tick bite Family History Family History Father Alcohol abuse Substance use disorder Mother Cervical cancer Maternal Grandmother Breast cancer Liver cancer Paternal Aunt Breast cancer Paternal Grandfather Heart attack Paternal Grandmother Heart attack Surgical History Surgical History H/O: hysterectomy (~05/2021) History of appendectomy History of arthroscopy of right shoulder History of section History of inguinal hernia repair History of orthopedic surgery Social History Social History Household Members: Children Household Members Other:: Son Housing: House Alcohol intake: current Alcohol intake frequency: holidays/special occasions only Patient Tobacco Use Status: Former Tobacco user Quit Date: 08/2019 Cigarette Packs Per Day: 0.5 Years Smoked: June 2019 e-Cigarette/Vaping Use: Never Used Second Hand Smoke Exposure: No Use of substances other than those prescribed or required for medical reasons: No Are you DNR?: No Advance Directives: No Advance Directives Information Provided: Yes Recently lost weight without trying: Unsure How much weight loss: 24-33 pounds Nutrition Risks: No Nutritional Risk service: No Current occupational status: employed Cognitive needs: No Hearing needs: No Vision needs: No Meds Allergies Allergy/AdvReac Type Severity Reaction Status Date / Time Biaxin Allergy Unknown tongue Verified 08/08/22 12:56 swelling clarithromycin [From BIAXIN] Allergy Unknown SWELLING Verified 08/08/22 12:56 AND HIVES latex [LATEX] Allergy Unknown HIVES Verified 08/08/22 12:56 oxycodone [From OXYCONTIN] Allergy Unknown ITCHINESS Verified 08/08/22 12:56 hydroxychloroquine AdvReac Intermediate Abdominal Verified 08/08/22 12:56 [From Plaquenil] Pain Exam Exam Date and Time: August 21, 2022 1110 Pertinent Lab Results Pertinent Lab Results: Laboratory Tests 03/21/22 03/21/22 05/09/22 12:40 12:40 10:00 WBC 6.4 Hgb 15.0 Hct 43.5 Plt Count 321 Sodium 135 Potassium 3.4 Chloride 99 Carbon Dioxide 28 BUN 17 H Creatinine 0.78 Assessment and Plan Assessment Anesthesia Assessment: Chart Reviewed Documented by User: Wendy Stafford MD 08/22/22 11:11 [facility] Past Medical History Medical History (Updated 08/21/22 @ 10:43 by Danae Herrera RN) Abdominal pain Adenomyosis Annual physical exam Colon cancer screening Fever GERD (gastroesophageal reflux disease) Lalito's thyroiditis Headache Hypertension Hypothyroid Insomnia Lumbar degenerative disc disease Migraine Obesity (BMI 30-39.9) Osteoarthritis Polycythemia Tick bite Family History Family History Father Alcohol abuse Substance use disorder Mother Cervical cancer Maternal Grandmother Breast cancer Liver cancer Paternal Aunt Breast cancer Paternal Grandfather Heart attack Paternal Grandmother Heart attack Family history of problems with anesthesia: No Surgical History Surgical History H/O: hysterectomy (~05/2021) History of appendectomy History of arthroscopy of right shoulder History of section History of inguinal hernia repair History of orthopedic surgery History of Problems with Anesthesia: No Social History Social History Household Members: Children Household Members Other:: Son Housing: House Alcohol intake: current Alcohol intake frequency: holidays/special occasions only Patient Tobacco Use Status: Former Tobacco user Quit Date: 08/2019 Cigarette Packs Per Day: 0.5 Years Smoked: June 2019 e-Cigarette/Vaping Use: Never Used Second Hand Smoke Exposure: No Use of substances other than those prescribed or required for medical reasons: No Are you DNR?: No Advance Directives: No Advance Directives Information Provided: Yes Recently lost weight without trying: Unsure How much weight loss: 24-33 pounds Nutrition Risks: No Nutritional Risk service: No Current occupational status: employed Cognitive needs: No Hearing needs: No Vision needs: No Meds Allergies Allergy/AdvReac Type Severity Reaction Status Date / Time Biaxin Allergy Unknown tongue Verified 08/08/22 12:56 swelling clarithromycin [From BIAXIN] Allergy Unknown SWELLING Verified 08/08/22 12:56 AND HIVES latex [LATEX] Allergy Unknown HIVES Verified 08/08/22 12:56 oxycodone [From OXYCONTIN] Allergy Unknown ITCHINESS Verified 08/08/22 12:56 hydroxychloroquine AdvReac Intermediate Abdominal Verified 08/08/22 12:56 [From Plaquenil] Pain Exam Airway Mallampati Class: II TM Dist: >3cm Neck ROM: Full Heart: rrr Lungs: cta Assessment and Plan Assessment Anesthesia Assessment: Anesthesia Plan Discussed Final Anesthetic Review Family History of Problems with Anesthesia: No History of Problems with Anesthesia: No NPO: Yes ASA Class: III Final Preanesthetic Review: No Changes in Pt Med Stat, Meds/Allgs Chart Reviewed and Consent Obtained/Reviewed Patient Risk: Intermediate Procedure Risk: Intermediate Anesthetic Plan Anesthetic Plan: MAC: Disposition: Standard PACU
[2022-08-22 10:54] VITALS: BMI 40.6
[2022-08-22 11:05] VITALS: BP 134/92; PULSE 91; RESP 16; TEMP 36.8; O2SAT 96
[2022-08-22] MEDS: Lactated Ringers 1,000 ML 100 ML IVCONT (11:14)
--- NOTE | 2022-08-22 11:16 | MHC.SHP ---
Pre-Procedural Eval Section A Date of Service: 08/22/22 The patient is an INPATIENT: No Changes since office visit: No Cold of Flu in the past 2 weeks, No New Medical Problems, No Changes in Medication and No Patient answered all questions The History & Physical has been completed within 30 days and I have reviewed it.: Yes Section B Chief Complaint: Encounter for screening for malignant neoplasm of Allergies: Allergies Allergy/AdvReac Type Severity Reaction Status Date / Time Biaxin Allergy Unknown tongue Verified 08/08/22 12:56 swelling clarithromycin [From BIAXIN] Allergy Unknown SWELLING Verified 08/08/22 12:56 AND HIVES latex [LATEX] Allergy Unknown HIVES Verified 08/08/22 12:56 oxycodone [From OXYCONTIN] Allergy Unknown ITCHINESS Verified 08/08/22 12:56 hydroxychloroquine AdvReac Intermediate Abdominal Verified 08/08/22 12:56 [From Plaquenil] Pain Plan I have reviewed the history and physical and performed a pertinent physical examination on my patient. No changes have occurred unless specified. Time Spent With Patient Time: Total time managing care of this patient today ____ minutes.
[2022-08-22 11:47] VITALS: BP 121/72; PULSE 78; RESP 16; TEMP 36.1; O2SAT 97
--- NOTE | 2022-08-22 11:48 | PM.OP ---
Brief Operative Note Date of Service: 08/22/22 Pre-op diagnosis: screening Post-op diagnosis: same Surgeon: Denton Devine Anesthesia: MAC Was an [employer] Supervisor used for this Procedure?: No Estimated blood loss (mL): 5 Pathology: other Condition: stable Disposition: PACU
[2022-08-22 12:02] VITALS: BP 121/78; PULSE 76; RESP 16; TEMP 36.7; O2SAT 97
--- NOTE | 2022-08-22 12:26 | OP_ITS ---
DATE OF SERVICE: 08/22/2022 SURGEON: Denton Devine MD INDICATIONS: Colon cancer screening. PREOPERATIVE DIAGNOSIS: POSTOPERATIVE DIAGNOSIS: PROCEDURE PERFORMED: Colonoscopy to the terminal ileum with biopsy. ESTIMATED BLOOD LOSS: COMPLICATIONS: ANESTHESIA: Monitored anesthesia care. ASSISTANTS: SPECIMENS: DESCRIPTION OF PROCEDURE: A history and physical was performed. The risks and benefits of the procedure were explained to the patient. Informed consent was obtained. The patient was placed in the left lateral decubitus position. A digital rectal exam was performed and was found to be normal. The Olympus pediatric video colonoscope was introduced into the rectum and advanced to the cecum without difficulty. The cecum was identified by transillumination, palpation, and identification of the ileocecal valve. Examination was performed. The scope was removed. She tolerated the procedure well and was returned to the recovery area in stable condition. FINDINGS: The terminal ileum was examined and appeared normal. The visualized colonic mucosa was within normal limits without evidence of masses, ulcers, or diverticulosis. Two polyps were identified. Both measured less than 5 mm and were removed with biopsy forceps. These were located at 40 cm and in the rectum. Retroflexed examination showed small internal hemorrhoids. IMPRESSION: Colon polyps. RECOMMENDATION: Follow up the biopsy results. MD DEMI Lassiter/MODL / [id number]
== END 2022-08-22 12:35 | disposition home or self-care (01) ==
PROVIDERS: PCP Internal Medicine; Visit Provider Internal Medicine Gastroenterology
PROC: 0DJD8ZZ Inspection of Lower Intestinal Tract, Via Natural or Artificial Opening Endoscopic (ICD-10-PCS; CPT 45378; principal; 2022-08-22 11:50)
DX: Z12.11 Encounter for screening for malignant neoplasm of colon (principal); K63.5 Polyp of colon; K62.1 Rectal polyp; K64.8 Other hemorrhoids; Z87.19 Personal history of other diseases of the digestive system; I10 Essential (primary) hypertension; K21.9 Gastro-esophageal reflux disease without esophagitis; Z79.899 Other long term (current) drug therapy
CPT/HCPCS: 45380; 88305

== ENCOUNTER 2022-11-21 08:31 | Outpatient (AMB) | payer OTHER, SELFPAY ==
[2022-11-21 08:34] VITALS: BP 126/74; PULSE 80; TEMP 36.5; BMI 40.9
--- NOTE | 2022-11-21 08:34 | A.OFFVIS_ITS ---
Intake Vital Signs 11/21/22 08:34 Height 5 ft 3 in Weight 231 lb 0.711 oz BMI 40.9 BP 126/74 Blood Pressure Location Rt brachial Position Sitting Pulse 80 Pulse Source Palpation Temp 97.7 F Temp Source Skin Intake Visit Reasons: Positive CCP Intake Note: Pt seen today for follow up. Denies new pain or concerns, states just the usual. [employer] Brakes Required: No Accompanied by: Self / Same As Patient Allergies Biaxin Allergy (Unknown, Verified 11/21/22 08:39) tongue swelling clarithromycin [From BIAXIN] Allergy (Unknown, Verified 11/21/22 08:39) SWELLING AND HIVES latex [LATEX] Allergy (Unknown, Verified 11/21/22 08:39) HIVES oxycodone [From OXYCONTIN] Allergy (Unknown, Verified 11/21/22 08:39) ITCHINESS hydroxychloroquine [From Plaquenil] Adverse Reaction (Intermediate, Verified 11/21/22 08:39) Abdominal Pain Medication List - Last Reconciled 11/21/22 by Augustine Lee MD blood-glucose sensor ([employer]airon 3 Sensor device) As directed dicyclomine 10 mg PO QID PRN 90 days hydrochlorothiazide 25 mg PO DAILY levothyroxine 175 mcg PO DAILY meloxicam 15 mg PO DAILY 30 days pantoprazole 40 mg PO DAILY sertraline 50 mg PO DAILY 30 days tramadol 50 mg PO BID PRN 30 days HPI HPI Comments History of Present Illness Details 47 yoF presents today for follow-up of seropositive rheumatoid arthritis (Rf-, CCP++). She was last seen by Viviane Leggett 07/2022. Patient states that she continues to get pain and stiffness in her hands, knuckles, intermittent pain and stiffness in her elbows, ankles and feet. Morning stiffness lasts 10-15 minutes. Does not need to take any medications for pain or stiffness. Denies any swollen joints. Her right knee pain however is different. She has chronic right knee pain and severe osteoarthritis, right knee replacement was recommended by her orthopedic surgeon, most recently gel injections were tried. Patient mentions that in the past when she was started on prednisone it gave her at least 50% relief of her overall joint symptoms. She was recently started on sertraline and she feels much better overall with regards to her mood and pain. [facility] Medical History Abdominal pain Adenomyosis Annual physical exam Colon cancer screening Fever GERD (gastroesophageal reflux disease) Lalito's thyroiditis Headache Hypertension Hypothyroid Insomnia Lumbar degenerative disc disease Migraine Obesity (BMI 30-39.9) Osteoarthritis Polycythemia Tick bite Surgical History H/O: hysterectomy (~05/2021) History of appendectomy History of arthroscopy of right shoulder History of section History of inguinal hernia repair History of orthopedic surgery Family History Father Alcohol abuse Substance use disorder Mother Cervical cancer Maternal Grandmother Breast cancer Liver cancer Paternal Aunt Breast cancer Paternal Grandfather Heart attack Paternal Grandmother Heart attack Social History Household Members: Children Household Members Other:: Son Housing: House Alcohol intake: current Alcohol intake frequency: holidays/special occasions only Patient Tobacco Use Status: Former Tobacco user Quit Date: 08/2019 Cigarette Packs Per Day: 0.5 Years Smoked: June 2019 e-Cigarette/Vaping Use: Never Used Second Hand Smoke Exposure: No service: No Current occupational status: employed Cognitive needs: No Hearing needs: No Vision needs: No Review of Systems Musc Reports arthralgias Physical Exam Vital Signs: Last Vital Signs Temp 97.7 F 11/21/22 08:34 Pulse 80 11/21/22 08:34 BP 126/74 11/21/22 08:34 BMI result Body Mass Index 40.9 Const General: cooperative, healthy appearing and comfortable Nutritional Appearance: obese morbidly obese Orientation/consciousness: patient oriented x3 Limitations: no limitations HEENT Head: Yes normocephalic and Yes atraumatic Mouth: moist mucous membranes Resp Effort & Inspection: normal respiratory effort and able to speak in complete sentences Neuro General: patient oriented x3 Extrem Other: No active synovitis. Right knee warmth and pain with full flexion. Assessment & Plan Assessment & Plan (1) Rheumatoid arthritis: Comment: Plaquenil 2019 - unable to tolerate due to palpitations and GI upset. Methotrexate March 2021- 4 tabs weekly, she took this for 1 month without issue, then stopped it for hysterectomy. Methotrexate was restarted after surgery but her liver function enzymes were elevated so it was discontinued. LFTs have improved after discontinuing methotrexate Sulfasalazine-September 2021 - 03/21/2022 noncompliance, lightheadedness Good response to prednisone Code(s): M06.9 - Rheumatoid arthritis, unspecified Qualifiers: Rheumatoid arthritis location: unspecified site Rheumatoid factor presence: unspecified presence Qualified Code(s): M06.9 - Rheumatoid arthritis, unspecified Plan: This is a 47-year-old female with +++CCP who presents for follow-up. There is no active synovitis on exam. Patient however has symptoms suggestive of clinically suspect arthralgia especially in the setting of high titer positive anti CCP antibody. Will repeat hand, wrist and feet x-rays to evaluate for erosive disease. Check inflammatory markers. If there is evidence of progressive disease will need to start DMARDs for rheumatoid arthritis. If her condition is stable will discuss potential treatment for clinically suspect arthralgias such as Orencia. Labs and x-rays before next visit in 2 months Plan I spent 26 minutes reviewing patient's chart, evaluating patient, ordering diagnostic workup, counseling patient and documenting in the chart Orders: Orders Comprehensive Met. Panel Today M06.9 - Rheumatoid arthritis, unspecified C Reactive Protein Today M06.9 - Rheumatoid arthritis, unspecified Complete Blood Count Auto Diff Today M06.9 - Rheumatoid arthritis, unspecified Erythrocyte Sedimentation Rate Today M06.9 - Rheumatoid arthritis, unspecified Hepatitis A,B,C Profile Today Z11.59 - Encounter for screening for other viral diseases T Spot TB Today Z11.7 - Encounter for testing for latent tuberculosis infection XR foot LT min 3V Today M06.9 - Rheumatoid arthritis, unspecified XR foot RT min 3V Today M06.9 - Rheumatoid arthritis, unspecified XR hand wrist LT Today M06.9 - Rheumatoid arthritis, unspecified XR hand wrist RT Today M06.9 - Rheumatoid arthritis, unspecified Coding Level of Care Code Est Pt Level 4 (70442) Diagnoses Rheumatoid arthritis M06.9 Rheumatoid arthritis location: unspecified site Rheumatoid factor presence: unspecified presence
== END 2022-11-21 08:56 | disposition home or self-care (01) ==
PROVIDERS: PCP Internal Medicine; Visit Provider Student in an Organized Health Care Education/Training Program
DX: M06.9 Rheumatoid arthritis, unspecified (principal)
CPT/HCPCS: 99214

== ENCOUNTER → 2022-11-21 08:31 | Outpatient (BNVA) | payer OTHER, SELFPAY | PROVIDERS: PCP Internal Medicine; Visit Provider Student in an Organized Health Care Education/Training Program ==

== ENCOUNTER 2022-11-21 09:36 | Outpatient (AMB) | payer OTHER, SELFPAY ==
[2022-11-21 09:47] VITALS: BP 130/72; PULSE 80; O2SAT 98; BMI 40.7
--- NOTE | 2022-11-21 09:47 | A.OFFPC_ITS ---
Vital Signs 11/21/22 09:47 Height 5 ft 3 in Weight 230 lb BMI 40.7 BP 130/72 Blood Pressure Location Lt brachial Position Sitting Pulse 80 Pulse Source Pulse Oximeter Pulse Oximetry (%) 98 Oxygen Delivery Method Room Air Intake Visit Reasons: DOROTEO, RA, OA Allergies Biaxin Allergy (Unknown, Verified 11/21/22 09:47) tongue swelling clarithromycin [From BIAXIN] Allergy (Unknown, Verified 11/21/22 09:47) SWELLING AND HIVES latex [LATEX] Allergy (Unknown, Verified 11/21/22 09:47) HIVES oxycodone [From OXYCONTIN] Allergy (Unknown, Verified 11/21/22 09:47) ITCHINESS hydroxychloroquine [From Plaquenil] Adverse Reaction (Intermediate, Verified 11/21/22 09:47) Abdominal Pain Medication List - Last Reconciled 11/21/22 by Duong Ram MD blood-glucose sensor (FreeStyle Jairon 3 Sensor device) As directed dicyclomine 10 mg PO QID PRN 90 days hydrochlorothiazide 25 mg PO DAILY levothyroxine 175 mcg PO DAILY meloxicam 15 mg PO DAILY 30 days [id number]-tgssvtnjj-CL 3.5-10,000-1 mg/mL-unit/mL-% 4 drps otic (ear) left Q8H 10 days pantoprazole 40 mg PO DAILY sertraline 75 mg (1.5 x 50 mg) PO DAILY 30 days tramadol 50 mg PO BID PRN 30 days Tobacco use date assessed: 08/08/22 Dental Screening Dental Screen Date: 11/21/22 Did you have a dental visit in the last 12 months?: Yes Did you have a dental problem in the last 6 months where you did not have access to dental care?: No Was dental information given to patient?: Patient has dentist HPI DOROTEO, RA, OA HPI Details [age]-year-old female with generalized anxiety disorder coming in for follow-up. Review of the notes seen by Rheumatology for seropositive rheumatoid arthritis patient also has severe osteoarthritis of the right knee advised replacement by orthopedics but is having injections.. Workup recommended. Patient just had a recent colonoscopy August [address] Nilson schmitt hyperplastic. Patient also has seen orthopedics for her right knee Dr. Murcia July 2022 diagnosis of progressive osteoarthropathy right knee near end-stage is tricompartmentally PFS Medical History (Updated 11/21/22 @ 10:13 by Duong Ram MD) Abdominal pain Adenomyosis Annual physical exam Colon cancer screening Colon cancer screening Encounter for testing for latent tuberculosis infection Fever GERD (gastroesophageal reflux disease) Lalito's thyroiditis Headache Hypertension Hypothyroid Insomnia Lumbar degenerative disc disease Migraine Obesity (BMI 30-39.9) Osteoarthritis Polycythemia Screening for viral disease Tick bite Surgical History H/O: hysterectomy (~05/2021) History of appendectomy History of arthroscopy of right shoulder History of section History of inguinal hernia repair History of orthopedic surgery Family History Father Alcohol abuse Substance use disorder Mother Cervical cancer Maternal Grandmother Breast cancer Liver cancer Paternal Aunt Breast cancer Paternal Grandfather Heart attack Paternal Grandmother Heart attack Social History Household Members: Children Household Members Other:: Son Housing: House Alcohol intake: current Alcohol intake frequency: holidays/special occasions only Patient Tobacco Use Status: Former Tobacco user Quit Date: 08/2019 Tobacco use type: Cigarette Cigarette Packs Per Day: 0.5 Years Smoked: June 2019 e-Cigarette/Vaping Use: Never Used Second Hand Smoke Exposure: No service: No Current occupational status: employed Cognitive needs: No Hearing needs: No Vision needs: No Questionnaire PHQ-9 Over the last 2 weeks, how often have you been bothered by any of the following problems? 1. Little interest or pleasure in doing things: not at all 2. Feeling down, depressed, or hopeless: not at all 3. Trouble falling or staying asleep, or sleeping too much: not at all 4. Feeling tired or having little energy: not at all 5. Poor appetite or overeating: not at all 6. Feeling bad about yourself - or that you are a failure or have let yourself or your family down: not at all 7. Trouble concentrating on things, such as reading the newspaper or watching television: not at all 8. Moving or speaking so slowly that other people could have noticed. Or the opposite - being so fidgety or restless that you have been moving around a lot more than usual: not at all 9. Thoughts that you would be better off or of hurting yourself in some way: not at all Total score: 0 Depression Screening Interpretation: Negative Source: Developed by Drs. Abdias Limon, Yudith Johnson, Gonzalo Mendez and colleagues, with an educational bhargav from [employer]. Thrive Questionnaire Date Thrive assessed: 08/08/22 AUDIT C Alcohol Use Questionnaire (AUDIT-C) 1. How often do you have a drink containing alcohol?: Monthly or less 2. How many drinks containing alcohol do you have on a typical day when you are drinking?: 1 or 2 3. How often do you have six or more drinks on one occasion?: Never Total Score: 1 DOROTEO-7 AMB Questionnaire DOROTEO-7 Date DOROTEO - 7 assessed: 08/08/22 Source: Developed by Drs. Abdias Limon, Yudith Johnson, Gonzalo Mendez and colleagues, with an educational bhargav from [employer]. Physical exam (Primary Care) Vital Signs: Last Vital Signs Pulse 80 11/21/22 09:47 BP 130/72 11/21/22 09:47 Pulse Ox 98 11/21/22 09:47 Oxygen Delivery Method Room Air 11/21/22 09:47 BMI result Body Mass Index 40.7 Tobacco/Smoking Status: Tobacco use Status Tobacco use date assessed 08/08/22 11/21/22 09:48 Patient Tobacco Use Status Former Tobacco user 11/21/22 09:48 Tobacco use type Cigarette 11/21/22 09:48 e-Cigarette/Vaping Use Never Used 11/21/22 09:48 PHQ-9: PHQ-9 Score PHQ-9: Total score 0 11/21/22 09:55 Depression Screening Interpretation: Negative Thrive Assessment: Date of Thrive Assessment Date Thrive assessed 08/08/22 11/21/22 09:48 Const General: alert; No acute distress Eyes Conjunctivae: conjunctivae normal Resp Auscultation: clear to auscultation bilaterally Cardio Rate: regular rate Rhythm: regular rhythm GI Inspection: Yes normal to inspection Extrem General: Yes normal to inspection and No edema Assessment and Plan Assessment & Plan (1) Rheumatoid arthritis: Comment: Plaquenil 2019 - unable to tolerate due to palpitations and GI upset. Methotrexate March 2021- 4 tabs weekly, she took this for 1 month without issue, then stopped it for hysterectomy. Methotrexate was restarted after surg [facility]chell but her liver function enzymes were elevated so it was discontinued. LFTs have improved after discontinuing methotrexate Sulfasalazine-September 2021 - 03/21/2022 noncompliance, lightheadedness Good response to prednisone Code(s): M06.9 - Rheumatoid arthritis, unspecified Qualifiers: Rheumatoid arthritis location: unspecified site Rheumatoid factor presence: unspecified presence Qualified Code(s): M06.9 - Rheumatoid arthritis, unspecified Plan: Patient follows up with Rheumatology and planned treatment with Orencia (2) Fatty liver: Code(s): K76.0 - Fatty (change of) liver, not elsewhere classified Plan: Low-fat diet and exercise (3) Obesity: Code(s): E66.9 - Obesity, unspecified Plan: Diet and exercise (4) Generalized anxiety disorder: Code(s): F41.1 - Generalized anxiety disorder Plan: Continue with present medication sertraline (5) GERD (gastroesophageal reflux disease): Code(s): K21.9 - Gastro-esophageal reflux disease without esophagitis Plan: Avoid the foods that causes that usually spicy foods, tomato products, juices, coffee, soda and foods that your sensitive to. After eating do not lie down, allow 3-4 hours before in lie down. And keep the head of bed above 30 degrees to avoid the acid from going up. (6) Hypothyroid: Comment: 1996 Code(s): E03.9 - Hypothyroidism, unspecified Qualifiers: Hypothyroidism type: acquired Qualified Code(s): E03.9 - Hypothyroidism, unspecified Plan: Continue with thyroid medication blood work therapeutic (7) Hypertension: Code(s): I10 - Essential (primary) hypertension Qualifiers: Hypertension type: essential hypertension Qualified Code(s): I10 - Essential (primary) hypertension Plan: Continue with blood pressure medication. Decrease salt intake and exercise patient is on hydrochlorothiazide only (8) Primary osteoarthritis of right knee: Code(s): M17.11 - Unilateral primary osteoarthritis, right knee Plan: Patient has seen Orthopedics Dr. Murcia and mentioned knee replacement. (9) Otitis externa, left: Code(s): H60.92 - Unspecified otitis externa, left ear Medications: New esgqpkpp-mwolcihso-CJ 3.5-10,000-1 mg/mL-unit/mL-% 4 drps otic (ear) left Q8H 10 days 10 mL 0RF H60.92 - Unspecified otitis externa, left ear Changed From sertraline 50 mg PO DAILY 30 days 90 tabs 1RF F41.1 - Generalized anxiety disorder To sertraline 75 mg (1.5 x 50 mg) PO DAILY 30 days 45 tabs 3RF F41.1 - Generalized anxiety disorder Refilled meloxicam 15 mg PO DAILY 30 days 30 tabs 2RF M06.9 - Rheumatoid arthritis, unspecified Coding Level of Care Code Est Pt Level 4 (38856) Diagnoses Rheumatoid arthritis M06.9 Rheumatoid arthritis location: unspecified site Rheumatoid factor presence: unspecified presence Fatty liver K76.0 Obesity E66.9 Generalized anxiety disorder F41.1 GERD (gastroesophageal reflux disease) K21.9 Hypothyroid E03.9 Hypothyroidism type: acquired Hypertension I10 Hypertension type: essential hypertension Primary osteoarthritis of right knee M17.11 Otitis externa, left H60.92
== END 2022-11-21 10:30 | disposition home or self-care (01) ==
PROVIDERS: PCP Internal Medicine; Visit Provider Internal Medicine
DX: K21.9 Gastro-esophageal reflux disease without esophagitis (principal); M06.9 Rheumatoid arthritis, unspecified; E66.9 Obesity, unspecified; Z68.41 Body mass index [BMI] 40.0-44.9, adult; K76.0 Fatty (change of) liver, not elsewhere classified; F41.1 Generalized anxiety disorder; E03.9 Hypothyroidism, unspecified; I10 Essential (primary) hypertension; M17.11 Unilateral primary osteoarthritis, right knee; H60.92 Unspecified otitis externa, left ear
CPT/HCPCS: 99214

== ENCOUNTER 2022-12-04 16:25 | Outpatient (AMB) | payer OTHER, SELFPAY ==
--- NOTE | 2022-12-04 16:25 | A.OFFVIS_ITS ---
Intake Vital Signs 12/04/22 16:26 Height 5 ft 3 in Weight 229 lb 4.492 oz BMI 40.6 BP 122/82 Blood Pressure Location Lt brachial Position Sitting Pulse 86 Pulse Source Pulse Oximeter Intake Visit Reasons: Hypothyroidism Intake Note: Patient present for Hypothyroidism follow up visit. 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 Required: No Accompanied by: Self / Same As Patient Allergies Biaxin Allergy (Unknown, Verified 12/04/22 16:30) tongue swelling clarithromycin [From BIAXIN] Allergy (Unknown, Verified 12/04/22 16:30) SWELLING AND HIVES latex [LATEX] Allergy (Unknown, Verified 12/04/22 16:30) HIVES oxycodone [From OXYCONTIN] Allergy (Unknown, Verified 12/04/22 16:30) ITCHINESS hydroxychloroquine [From Plaquenil] Adverse Reaction (Intermediate, Verified 12/04/22 16:30) Abdominal Pain HPI HPI Comments History of Present Illness Details 46 YO F who is seen in consultation at the request of his PCP for Hyothyroidism.Saw Jorge Rodrigues in past First diagnosed with Hypothyroidism 2010 . Currently using levothyroxine 175 ug . Denies +fatigue, +weight gain in 60 lbs in 1 yr , -cold intolerance, -dry skin, -hair loss, -constipation. There is no hx of hyperlipidemia . Denies obstructive sx of goiter . Denies consuming any kelp or seaweed. Denies taking amiodarone. Hysterectomy in 05/2022 prolapsed uterus Biotin: No Mother and sister has thyroid problems -hypothyroidism Took sulfasalizene for RA and had hypoglycemia. Tested with meter was 80. Was 60 at one point . Never had bariatric surgery. Feels jiteery, shaking and sweating. Never LOC or SX Labs: Lost 30 lbs and hypoglycemia much better [facility] Medical History (Updated 11/21/22 @ 10:13 by Duong Ram MD) Abdominal pain Adenomyosis Annual physical exam Colon cancer screening Colon cancer screening Encounter for testing for latent tuberculosis infection Fever GERD (gastroesophageal reflux disease) Lalito's thyroiditis Headache Hypertension Hypothyroid Insomnia Lumbar degenerative disc disease Migraine Obesity (BMI 30-39.9) Osteoarthritis Polycythemia Screening for viral disease Tick bite Surgical History H/O: hysterectomy (~05/2021) History of appendectomy History of arthroscopy of right shoulder History of section History of inguinal hernia repair History of orthopedic surgery Family History Father Alcohol abuse Substance use disorder Mother Cervical cancer Maternal Grandmother Breast cancer Liver cancer Paternal Aunt Breast cancer Paternal Grandfather Heart attack Paternal Grandmother Heart attack Social History Household Members: Children Household Members Other:: Son Housing: House Alcohol intake: current Alcohol intake frequency: holidays/special occasions only Patient Tobacco Use Status: Former Tobacco user Quit Date: 08/2019 Tobacco use type: Cigarette Cigarette Packs Per Day: 0.5 Years Smoked: June 2019 e-Cigarette/Vaping Use: Never Used Second Hand Smoke Exposure: No service: No Current occupational status: employed Cognitive needs: No Hearing needs: No Vision needs: No Physical Exam HEENT reveals absence of lid lag , stare or proptosis or eyebrow loss. Thyroid gland measure gms . No nodules or tenderness palpated. There is no cervical adenopathy palpated. Lungs CTA. Heart S1, S2 Reg R/R -M/R/G. Abdominal exam benign. Skin exam reveals absence of dryness or thyroid dermopathy or vitiligo. Nail exam reveals absence of thyroid acropachy or oncholysis. Neurologic exam reveals 2+ reflexes . Muscle Strength is 5/5 proximally. There are no tremors in upper extremities. Assessment & Plan Assessment & Plan (1) Hypothyroid: Comment: 1996 Code(s): E03.9 - Hypothyroidism, unspecified Qualifiers: Hypothyroidism type: acquired Qualified Code(s): E03.9 - Hypothyroidism, unspecified Plan: This is a 47-year-old white female with a history of hypothyroidism be replaced with 175 mcg levothyroxine. She appears to be clinically and biochemically euthyroid. Plan is to continue the current therapy. At this point, patient can follow up with primary care provider and return back to endocrinology as needed (2) Hypoglycemia: Code(s): E16.2 - Hypoglycemia, unspecified Plan: Much improved weight loss. Patient will follow up with primary care provider continue weight loss dietary and exercise approaches Coding Level of Care Code Est Pt Level 3 (50655) Diagnoses Hypothyroid E03.9 Hypothyroidism type: acquired Hypoglycemia E16.2
[2022-12-04 16:26] VITALS: BP 122/82; PULSE 86; BMI 40.6
== END 2022-12-04 16:46 | disposition home or self-care (01) ==
PROVIDERS: PCP Internal Medicine; Referring Provider Internal Medicine; Visit Provider Internal Medicine Endocrinology, Diabetes & Metabolism
DX: E03.9 Hypothyroidism, unspecified (principal); E16.2 Hypoglycemia, unspecified
CPT/HCPCS: 99213

== ENCOUNTER → 2022-12-04 16:25 | Outpatient (BNVA) | payer OTHER, SELFPAY | PROVIDERS: Visit Provider Internal Medicine Endocrinology, Diabetes & Metabolism ==

== ENCOUNTER 2023-02-20 11:59 | Outpatient (REF) | payer OTHER, SELFPAY ==
--- NOTE | ~2023-02-20 | XR_ITS ---
EXAMINATION: XR FEET, BILATERAL XR HANDS, BILATERAL CLINICAL INFORMATION: Rheumatoid arthritis. COMPARISON: 03/29/2021 bilateral wrists. TECHNIQUE: 3 views of each foot. 4 views of each hand. FINDINGS: LEFT FOOT: Moderate plantar calcaneal spur. Moderate dorsal calcaneal spur. Moderate degenerative changes in the 1st metatarsophalangeal joint with joint space narrowing and hypertrophic change. RIGHT FOOT: Small plantar calcaneal spur. Moderate dorsal calcaneal spur. Moderate degenerative changes in the 1st metatarsophalangeal joint with joint space narrowing and hypertrophic change. RIGHT HAND: A radiopaque marker was placed by technologist to indicate the area of concern as indicated by the patient at the 2nd MCP joint. Moderate degenerative changes in the 1st carpometacarpal joint with joint space narrowing and hypertrophic change. Tiny ossicles in the soft tissues at this level. Small cystic lucencies in the carpals. No acute displaced fracture. LEFT HAND: A radiopaque marker was placed by the technologist to indicate the area of concern as indicated by the patient at the 2nd MCP joint. Moderate degenerative changes in the 1st carpometacarpal joint with joint space narrowing and hypertrophic change. No acute displaced fracture. XR/XR foot RT min 3V IMPRESSION: 1. Moderate degenerative changes in the bilateral 1st metatarsophalangeal joints. 2. Moderate degenerative changes in the bilateral 1st carpometacarpal joints. 3. No displaced fracture of the bilateral hands and feet. Recommend followup imaging in 10-14 days if fracture is suspected.
--- NOTE | ~2023-02-20 | XR_ITS ---
EXAMINATION: XR FEET, BILATERAL XR HANDS, BILATERAL CLINICAL INFORMATION: Rheumatoid arthritis. COMPARISON: 03/29/2021 bilateral wrists. TECHNIQUE: 3 views of each foot. 4 views of each hand. FINDINGS: LEFT FOOT: Moderate plantar calcaneal spur. Moderate dorsal calcaneal spur. Moderate degenerative changes in the 1st metatarsophalangeal joint with joint space narrowing and hypertrophic change. RIGHT FOOT: Small plantar calcaneal spur. Moderate dorsal calcaneal spur. Moderate degenerative changes in the 1st metatarsophalangeal joint with joint space narrowing and hypertrophic change. RIGHT HAND: A radiopaque marker was placed by technologist to indicate the area of concern as indicated by the patient at the 2nd MCP joint. Moderate degenerative changes in the 1st carpometacarpal joint with joint space narrowing and hypertrophic change. Tiny ossicles in the soft tissues at this level. Small cystic lucencies in the carpals. No acute displaced fracture. LEFT HAND: A radiopaque marker was placed by the technologist to indicate the area of concern as indicated by the patient at the 2nd MCP joint. Moderate degenerative changes in the 1st carpometacarpal joint with joint space narrowing and hypertrophic change. No acute displaced fracture. XR/XR foot LT min 3V IMPRESSION: 1. Moderate degenerative changes in the bilateral 1st metatarsophalangeal joints. 2. Moderate degenerative changes in the bilateral 1st carpometacarpal joints. 3. No displaced fracture of the bilateral hands and feet. Recommend followup imaging in 10-14 days if fracture is suspected.
--- NOTE | ~2023-02-20 | XR_ITS ---
EXAMINATION: XR FEET, BILATERAL XR HANDS, BILATERAL CLINICAL INFORMATION: Rheumatoid arthritis. COMPARISON: 03/29/2021 bilateral wrists. TECHNIQUE: 3 views of each foot. 4 views of each hand. FINDINGS: LEFT FOOT: Moderate plantar calcaneal spur. Moderate dorsal calcaneal spur. Moderate degenerative changes in the 1st metatarsophalangeal joint with joint space narrowing and hypertrophic change. RIGHT FOOT: Small plantar calcaneal spur. Moderate dorsal calcaneal spur. Moderate degenerative changes in the 1st metatarsophalangeal joint with joint space narrowing and hypertrophic change. RIGHT HAND: A radiopaque marker was placed by technologist to indicate the area of concern as indicated by the patient at the 2nd MCP joint. Moderate degenerative changes in the 1st carpometacarpal joint with joint space narrowing and hypertrophic change. Tiny ossicles in the soft tissues at this level. Small cystic lucencies in the carpals. No acute displaced fracture. LEFT HAND: A radiopaque marker was placed by the technologist to indicate the area of concern as indicated by the patient at the 2nd MCP joint. Moderate degenerative changes in the 1st carpometacarpal joint with joint space narrowing and hypertrophic change. No acute displaced fracture. XR/XR hand wrist LT IMPRESSION: 1. Moderate degenerative changes in the bilateral 1st metatarsophalangeal joints. 2. Moderate degenerative changes in the bilateral 1st carpometacarpal joints. 3. No displaced fracture of the bilateral hands and feet. Recommend followup imaging in 10-14 days if fracture is suspected.
--- NOTE | ~2023-02-20 | XR_ITS ---
EXAMINATION: XR FEET, BILATERAL XR HANDS, BILATERAL CLINICAL INFORMATION: Rheumatoid arthritis. COMPARISON: 03/29/2021 bilateral wrists. TECHNIQUE: 3 views of each foot. 4 views of each hand. FINDINGS: LEFT FOOT: Moderate plantar calcaneal spur. Moderate dorsal calcaneal spur. Moderate degenerative changes in the 1st metatarsophalangeal joint with joint space narrowing and hypertrophic change. RIGHT FOOT: Small plantar calcaneal spur. Moderate dorsal calcaneal spur. Moderate degenerative changes in the 1st metatarsophalangeal joint with joint space narrowing and hypertrophic change. RIGHT HAND: A radiopaque marker was placed by technologist to indicate the area of concern as indicated by the patient at the 2nd MCP joint. Moderate degenerative changes in the 1st carpometacarpal joint with joint space narrowing and hypertrophic change. Tiny ossicles in the soft tissues at this level. Small cystic lucencies in the carpals. No acute displaced fracture. LEFT HAND: A radiopaque marker was placed by the technologist to indicate the area of concern as indicated by the patient at the 2nd MCP joint. Moderate degenerative changes in the 1st carpometacarpal joint with joint space narrowing and hypertrophic change. No acute displaced fracture. XR/XR hand wrist RT IMPRESSION: 1. Moderate degenerative changes in the bilateral 1st metatarsophalangeal joints. 2. Moderate degenerative changes in the bilateral 1st carpometacarpal joints. 3. No displaced fracture of the bilateral hands and feet. Recommend followup imaging in 10-14 days if fracture is suspected.
[2023-02-20 12:14] LABS: MANUAL DIFF FLAG NO
[2023-02-20 12:57] LABS: Basophils Absolute Auto 0.1 X10*3/uL (0.0-0.2); Basophils Percent Auto 0.6 % (0-2); Eosinophils Absolute Auto 0.2 X10*3/uL (0.0-0.4); Eosinophils Percent Auto 2.3 % (0-4); Hematocrit 44.5 % (37.0-47.0); Hemoglobin 15.3 g/dl (12.0-16.0); Imm Gran Abs Auto 0.03 X10*3/uL (0.00-0.03); Imm Gran Pct Auto 0.4 % (0.0-0.4); Lymphocytes Absolute Auto 1.6 X10*3/uL (1.2-4.9); Lymphocytes Percent Auto 20.5 % (20-40); Mean Corpuscular HGB Conc 34.4 g/dl (31.0-35.0); Mean Corpuscular Hemoglobin 29.5 pg (27.0-33.0); Mean Corpuscular Volume 85.9 fL (80.0-98.0); Mean Platelet Volume 9.1 fL (9.4-12.3); Monocytes Absolute Auto 0.6 X10*3/uL (0.1-1.2); Monocytes Percent Auto 7.6 % (2-11); Neutrophils Absolute Auto 5.4 x10*3/uL (2.0-8.3); Neutrophils Percent Auto 68.6 % (45-73); Platelet Count 336 X10*3/uL (160-400); Red Blood Count 5.18 X10*6/uL (4.20-5.50); Red Cell Distribution Width 13.2 % (11.0-16.0); White Blood Count 7.8 X10*3/uL (4.8-10.8)
[2023-02-20 13:44] LABS: Erythrocyte Sedimentation Rate 4 MM/HR (0-20)
[2023-02-20 14:12] LABS: Alanine Aminotransferase 33 U/L (0-31); Albumin Level 4.3 g/dL (3.5-5.0); Alkaline Phosphatase 57 U/L (39-117); Anion Gap 11 (12-20); Aspartate Amino Transferase 25 U/L (5-31); Bilirubin Total 0.4 mg/dL (0.0-1.0); Blood Urea Nitrogen 19 mg/dL (9-16); C Reactive Protein 0.42 mg/dL (< or = 0.50); Calcium 9.4 mg/dL (8.4-10.2); Carbon Dioxide 26 mmol/L (22-29); Chloride 104 mmol/L (96-108); Estimated Glomerular Filt Rate > 60; Glucose Random 83 mg/dL (60-115); Sodium 137 mmol/L (135-145); Total Protein 7.3 g/dL (6.5-8.0)
[2023-02-22 18:18] LABS: TS Negative Control Passed; TS Panel A 1; TS Panel B 0; TS Positive Control Passed; TSpotTB Negative (Negative)
[2023-02-23 05:45] LABS: HBc Num1 0.09 S/CO (0.00-0.79); HBsAGNum1 0.38 S/CO (0.00-0.99); Hepatitis A Antibody IgM 0.21 Index (0-0.79); Hepatitis B Core Antibody Nonreactive (Nonreactive); Hepatitis B Surface Antigen Negative (Negative); ~HepC Num1 0.08 S/CO (0.00-0.79); ~Hepatitis A Antibody IgM Nonreactive (Nonreactive); ~Hepatitis B Surface Antibody REACTIVE (Nonreactive); ~Hepatitis C Antibody Nonreactive (Nonreactive)
== END 2023-02-20 12:00 | disposition home or self-care (01) ==
LOC: HO.LAB 11:59
PROVIDERS: PCP Internal Medicine; Visit Provider Student in an Organized Health Care Education/Training Program
DX: Z11.59 Encounter for screening for other viral diseases (principal); Z11.7 Encounter for testing for latent tuberculosis infection; M06.9 Rheumatoid arthritis, unspecified; Z72.89 Other problems related to lifestyle
CPT/HCPCS: 36415; 73110; 73130; 73630; 80053; 85025; 85652; 86140; 86481; 86704; 86706; 86709; 86803; 87340

== ENCOUNTER 2023-02-27 15:20 | Outpatient (AMB) | payer OTHER, SELFPAY ==
--- NOTE | 2023-02-27 15:20 | MHC.PC.OV ---
Intake Visit Reasons: COVID Director Inbound Sales Required: No Accompanied by: Self / Same As Patient Allergies Biaxin Allergy (Unknown, Verified 02/27/23 15:22) tongue swelling clarithromycin [From BIAXIN] Allergy (Unknown, Verified 02/27/23 15:22) SWELLING AND HIVES latex [LATEX] Allergy (Unknown, Verified 02/27/23 15:22) HIVES oxycodone [From OXYCONTIN] Allergy (Unknown, Verified 02/27/23 15:22) ITCHINESS hydroxychloroquine [From Plaquenil] Adverse Reaction (Intermediate, Verified 02/27/23 15:22) Abdominal Pain Medication List - Last Reconciled 02/27/23 by Duong Ram MD amoxicillin-pot clavulanate 875-125 mg 1 tab PO BID blood-glucose sensor (FreeStyle Jairon 3 Sensor device) As directed dicyclomine 10 mg PO QID PRN 90 days hydrochlorothiazide 25 mg PO DAILY levothyroxine 175 mcg PO DAILY meloxicam 15 mg PO DAILY 30 days pantoprazole 40 mg PO DAILY sertraline 75 mg (1.5 x 50 mg) PO DAILY 90 days tramadol 50 mg PO BID PRN 30 days Tobacco use date assessed: 02/27/23 Dental Screening Dental Screen Date: 02/27/23 Did you have a dental visit in the last 12 months?: Yes Did you have a dental problem in the last 6 months where you did not have access to dental care?: No Was dental information given to patient?: Patient has dentist HPI COVID HPI Details 47-year-old obese female with a history of rheumatoid arthritis GERD hypothyroidism hypertension knee osteoarthritis and generalized anxiety disorder last seen in November 2022. Patient was recently diagnosed with COVID-19 infection. Patient comes in for acute problem. Patient follows up with Endocrinology for the thyroid clinically and biochemically euthyroid. fevers covid 19 infection tested 02/25/2023 congested , asking for antibiotic. [facility] Medical History (Updated 02/27/23 @ 15:32 by Duong Ram MD) Encounter for testing for latent tuberculosis infection Screening for viral disease Lalito's thyroiditis Colon cancer screening Insomnia Colon cancer screening Abdominal pain Headache Tick bite Fever Adenomyosis Polycythemia Migraine GERD (gastroesophageal reflux disease) Lumbar degenerative disc disease Obesity (BMI 30-39.9) Osteoarthritis Hypothyroid Hypertension Annual physical exam Surgical History H/O: hysterectomy (~05/2021) History of inguinal hernia repair History of section History of appendectomy History of orthopedic surgery History of arthroscopy of right shoulder Family History Father Alcohol abuse Substance use disorder Mother Cervical cancer Maternal Grandmother Breast cancer Liver cancer Paternal Aunt Breast cancer Paternal Grandfather Heart attack Paternal Grandmother Heart attack Social History Household Members: Children Household Members Other:: Son Housing: House Alcohol intake: current Alcohol intake frequency: holidays/special occasions only Patient Tobacco Use Status: Former Tobacco user Quit Date: 08/2019 Tobacco use type: Cigarette Cigarette Packs Per Day: 0.5 Years Smoked: June 2019 Packs Per Year: 0 e-Cigarette/Vaping Use: Never Used Second Hand Smoke Exposure: No service: No Current occupational status: employed Cognitive needs: No Hearing needs: No Vision needs: No Questionnaire PHQ-9 Over the last 2 weeks, how often have you been bothered by any of the following problems? 1. Little interest or pleasure in doing things: not at all 2. Feeling down, depressed, or hopeless: not at all 3. Trouble falling or staying asleep, or sleeping too much: not at all 4. Feeling tired or having little energy: not at all 5. Poor appetite or overeating: not at all 6. Feeling bad about yourself - or that you are a failure or have let yourself or your family down: not at all 7. Trouble concentrating on things, such as reading the newspaper or watching television: not at all 8. Moving or speaking so slowly that other people could have noticed. Or the opposite - being so fidgety or restless that you have been moving around a lot more than usual: not at all 9. Thoughts that you would be better off or of hurting yourself in some way: not at all Total score: 0 Depression Screening Interpretation: Negative Depression Screening Done: Yes Source: Developed by Drs. Abdias Limon, Yudith Johnson, Gonzalo Mendez and colleagues, with an educational bhargav from [employer]. Thrive Questionnaire Date Thrive assessed: 11/10/23 I am a: Patient What is your living situation today?: I have a steady place to live Within the past 12 months, did the food you bought not last and you didn't have the money to get more?: Never true Within the past 12 months, did you worry whether your food would run out before you got money to buy more?: Never true Do you have trouble paying for medicines?: No Do you have trouble getting transportation to medical appointments?: No Do you have trouble paying your heating and electricity bill?: No Do you have trouble taking care of your child, family member or friend?: No Do you have trouble with day-to-day activities such as bathing, preparing meals, shopping, managing finances, etc.?: No Are you currently unemployed and looking for a job?: No Are you interested in more education?: No Please select the resources that you would like help with: None Currently or been in a relationship where the following occur: no concerns reported AUDIT C Alcohol Use Questionnaire (AUDIT-C) 1. How often do you have a drink containing alcohol?: Monthly or less 2. How many drinks containing alcohol do you have on a typical day when you are drinking?: 1 or 2 3. How often do you have six or more drinks on one occasion?: Never Total Score: 1 DOROTEO-7 AMB Questionnaire DOROTEO-7 Date DOROTEO - 7 assessed: 02/27/23 Feeling nervous, anxious, or on edge: 0 = Not at all Not being able to stop or control worryin = Not at all Worrying too much about different things: 0 = Not at all Trouble relaxin = Not at all Being so restless that it is hard to sit still: 0 = Not at all Becoming easily annoyed or irritable: 0 = Not at all Feeling afraid as if something awful might happen: 0 = Not at all Total DOROTEO-7 score (0-4 normal; 5-9 mild; 10-14 moderate; 15-21 severe): 0 Source: Developed by Drs. Abdias Limon, Yudith Johnson, Gonzalo Mendez and colleagues, with an educational bhargav from [employer]. Physical exam (Primary Care) Tobacco/Smoking Status: Tobacco use Status Tobacco use date assessed 02/27/23 02/27/23 15:23 Patient Tobacco Use Status Former Tobacco user 02/27/23 15:21 Tobacco use type Cigarette 02/27/23 15:21 e-Cigarette/Vaping Use Never Used 02/27/23 15:21 PHQ-9: PHQ-9 Score PHQ-9: Total score 0 02/27/23 15:23 Depression Screening Interpretation: Negative Thrive Assessment: Date of Thrive Assessment Date Thrive assessed 02/27/23 02/27/23 15:23 Currently or been in a relationship where the following occur: no concerns reported Telehealth Telehealth Location of provider rendering services: practice address Location of patient: address on file Patient Identification confirmed using: Name, : Yes Telehealth method: voice only Patient verbally consented to treatment: Yes Patient verbally consented to billing insurance company: Yes Patient informed of any privacy concerns related to visit: Yes Minutes spent on Phone/Video with Pt.: 25 Assessment and Plan Assessment & Plan (1) Hypothyroid: Comment: 1996 Code(s): E03.9 - Hypothyroidism, unspecified Qualifiers: Hypothyroidism type: acquired Qualified Code(s): E03.9 - Hypothyroidism, unspecified Plan: Patient has met with endocrinology biochemically euthyroid will continue with present dose and check TSH periodically (2) Hypertension: Code(s): I10 - Essential (primary) hypertension Qualifiers: Hypertension type: essential hypertension Qualified Code(s): I10 - Essential (primary) hypertension Plan: Continue with hydrochlorothiazide for blood pressure (3) COVID-19 virus infection: Comment: January, 02/25/2023 Code(s): U07.1 - COVID-19 Plan: increase fluids rest- (4) Primary osteoarthritis of right knee: Code(s): M17.11 - Unilateral primary osteoarthritis, right knee Plan: will go for replacement 04/21/2023 (5) Nasal congestion: Code(s): R09.81 - Nasal congestion Plan: increase oral fluids - Medications: New amoxicillin-pot clavulanate 875-125 mg 1 tab PO BID 20 tabs 0RF R09.81 - Nasal congestion Coding Level of Care Code Tele Est Pt Level 4 (99354) Diagnoses Acquired hypothyroidism E03.9 Hypothyroidism type: acquired Essential hypertension I10 Hypertension type: essential hypertension COVID-19 virus infection U07.1 Primary osteoarthritis of right knee M17.11 Nasal congestion R09.81
== END 2023-02-27 15:26 | disposition home or self-care (01) ==
LOC: HO.HMGH 15:20
PROVIDERS: PCP Internal Medicine; Visit Provider Internal Medicine
DX: U07.1 COVID-19 (principal); E03.9 Hypothyroidism, unspecified; I10 Essential (primary) hypertension; M17.11 Unilateral primary osteoarthritis, right knee; R09.81 Nasal congestion
CPT/HCPCS: 99443

== ENCOUNTER 2023-04-10 08:11 | Outpatient (AMB) | payer OTHER, SELFPAY ==
--- NOTE | 2023-04-10 08:12 | MHC.OFFVIS ---
Intake Vital Signs 04/10/23 08:13 Height 5 ft 3 in Weight 237 lb 7.005 oz BMI 42.1 BP 130/80 Blood Pressure Location Rt brachial Position Sitting Pulse 80 Pulse Source Pulse Oximeter Temp 97.5 F Temp Source Skin Pulse Oximetry (%) 97 Oxygen Delivery Method Room Air Intake Visit Reasons: Discuss lab and x ray res Intake Note: Pt last seen 11/21/22 presents today for follow up and test results. Reports scheduled right knee replacement for April,. Silo Filler Required: No Accompanied by: Self / Same As Patient Allergies Biaxin Allergy (Unknown, Verified 04/10/23 08:13) tongue swelling clarithromycin [From BIAXIN] Allergy (Unknown, Verified 04/10/23 08:13) SWELLING AND HIVES latex [LATEX] Allergy (Unknown, Verified 04/10/23 08:13) HIVES oxycodone [From OXYCONTIN] Allergy (Unknown, Verified 04/10/23 08:13) ITCHINESS hydroxychloroquine [From Plaquenil] Adverse Reaction (Intermediate, Verified 04/10/23 08:13) Abdominal Pain Medication List - Last Reconciled 04/10/23 by Augustine Lee MD blood-glucose sensor (FreeStyle Jairon 3 Sensor device) As directed dicyclomine 10 mg PO QID PRN 90 days hydrochlorothiazide 25 mg PO DAILY latanoprost 0.005% 1 drp ophthalmic (eye) BEDTIME levothyroxine 175 mcg PO DAILY meloxicam 15 mg PO DAILY 90 days pantoprazole 40 mg PO DAILY sertraline 75 mg (1.5 x 50 mg) PO DAILY 90 days tramadol 50 mg PO BID PRN 30 days HPI HPI Comments History of Present Illness Details 47 yoF presents for follow-up. She was previously diagnosed with seropositive RA. She is not on any DMARDs currently. She is here after completion of her diagnostic workup. She states that she is scheduled for knee replacement soon. Her symptoms are about the same Previous visit: Patient states that she continues to get pain and stiffness in her hands, knuckles, intermittent pain and stiffness in her elbows, ankles and feet. Morning stiffness lasts 10-15 minutes. Does not need to take any medications for pain or stiffness. Denies any swollen joints. Her right knee pain however is different. She has chronic right knee pain and severe osteoarthritis, right knee replacement was recommended by her orthopedic surgeon, most recently gel injections were tried. Patient mentions that in the past when she was started on prednisone it gave her at least 50% relief of her overall joint symptoms. She was recently started on sertraline and she feels much better overall with regards to her mood and pain. [facility] Medical History (Updated 04/10/23 @ 08:35 by Augustine Lee MD) Lalito's thyroiditis Colon cancer screening Insomnia Colon cancer screening Abdominal pain Headache Tick bite Fever Adenomyosis Polycythemia Migraine GERD (gastroesophageal reflux disease) Lumbar degenerative disc disease Obesity (BMI 30-39.9) Osteoarthritis Hypothyroid Hypertension Annual physical exam Surgical History H/O: hysterectomy (~05/2021) History of inguinal hernia repair History of section History of appendectomy History of orthopedic surgery History of arthroscopy of right shoulder Family History Father Alcohol abuse Substance use disorder Mother Cervical cancer Maternal Grandmother Breast cancer Liver cancer Paternal Aunt Breast cancer Paternal Grandfather Heart attack Paternal Grandmother Heart attack Social History Household Members: Children Household Members Other:: Son Housing: House Alcohol intake: current Alcohol intake frequency: holidays/special occasions only Patient Tobacco Use Status: Former Tobacco user Quit Date: 08/2019 Tobacco use type: Cigarette Cigarette Packs Per Day: 0.5 Years Smoked: June 2019 e-Cigarette/Vaping Use: Never Used Second Hand Smoke Exposure: No service: No Current occupational status: employed Cognitive needs: No Hearing needs: No Vision needs: No Review of Systems Musc Reports arthralgias Physical Exam Vital Signs: Last Vital Signs Temp 97.5 F 04/10/23 08:13 Pulse 80 04/10/23 08:13 BP 130/80 04/10/23 08:13 Pulse Ox 97 04/10/23 08:13 Oxygen Delivery Method Room Air 04/10/23 08:13 BMI result Body Mass Index 42.1 Const General: cooperative, healthy appearing and comfortable Nutritional Appearance: obese morbidly obese Orientation/consciousness: patient oriented x3 Limitations: no limitations HEENT Head: Yes normocephalic and Yes atraumatic Mouth: moist mucous membranes Resp Effort & Inspection: normal respiratory effort and able to speak in complete sentences Neuro General: patient oriented x3 Extrem Other: No active synovitis. Mild left 2nd MCP tenderness without swelling Right knee warmth and pain with full flexion. Assessment & Plan Assessment & Plan (1) Rheumatoid arthritis: Comment: Plaquenil 2019 - unable to tolerate due to palpitations and GI upset. Methotrexate March 2021- 4 tabs weekly, she took this for 1 month without issue, then stopped it for hysterectomy. Methotrexate was restarted after surgery but her liver function enzymes were elevated so it was discontinued. LFTs have improved after discontinuing methotrexate Sulfasalazine-September 2021 - 03/21/2022 noncompliance, lightheadedness Good response to prednisone Code(s): M06.9 - Rheumatoid arthritis, unspecified Qualifiers: Rheumatoid arthritis location: unspecified site Rheumatoid factor presence: unspecified presence Qualified Code(s): M06.9 - Rheumatoid arthritis, unspecified Plan: This is a 47-year-old female with +++CCP who presents for follow-up. There is no active synovitis on exam. Patient however has symptoms suggestive of clinically suspect arthralgia especially in the setting of high titer positive anti CCP antibody. Recent x-rays do not show any erosions or signs of inflammatory arthropathy, rather consistent with degenerative arthritis. Inflammatory markers are normal. Discussed with patient that I believe her symptoms at this point are rather consistent with clinically suspect arthralgias we discussed the APIPPRA trial. Discussed the utility of using Orencia. Patient would like to hold off at this point. Follow-up in 9 months for evaluation. Advised patient to call us sooner if she develops any new or progressive symptoms. Take pictures of development of any swollen joints. Plan I spent 26 minutes reviewing patient's chart, evaluating patient, counseling patient and documenting in the chart Coding Level of Care Code Est Pt Level 4 (48831) Diagnoses Rheumatoid arthritis, involving unspecified site, unspecified whether rheumatoid factor present M06.9 Rheumatoid arthritis location: unspecified site Rheumatoid factor presence: unspecified presence
[2023-04-10 08:13] VITALS: BP 130/80; PULSE 80; TEMP 36.4; O2SAT 97; BMI 42.1
== END 2023-04-10 08:33 | disposition home or self-care (01) ==
PROVIDERS: PCP Internal Medicine; Visit Provider Student in an Organized Health Care Education/Training Program
DX: M06.9 Rheumatoid arthritis, unspecified (principal)
CPT/HCPCS: 99214

== ENCOUNTER → 2023-04-10 08:11 | Outpatient (BNVA) | payer OTHER, SELFPAY | PROVIDERS: PCP Internal Medicine; Visit Provider Student in an Organized Health Care Education/Training Program ==

== ENCOUNTER 2023-05-08 08:47 | Outpatient (AMB) | payer OTHER, SELFPAY ==
[2023-05-08 09:07] VITALS: BP 122/84; PULSE 91; O2SAT 99; BMI 40.6
--- NOTE | 2023-05-08 09:07 | A.OFFPC_ITS ---
Vital Signs 05/08/23 09:07 Height 5 ft 3 in Weight 229 lb BMI 40.6 BP 122/84 Blood Pressure Location Lt brachial Position Sitting Pulse 91 Pulse Source Pulse Oximeter Pulse Oximetry (%) 99 Oxygen Delivery Method Room Air Intake Visit Reasons: Annual exam Lotus Notes Administrator Required: No Pediatric Oncology Nurse: Not Required per policy Accompanied by: Self / Same As Patient Allergies Biaxin Allergy (Unknown, Verified 05/08/23 09:08) tongue swelling clarithromycin [From BIAXIN] Allergy (Unknown, Verified 05/08/23 09:08) SWELLING AND HIVES latex [LATEX] Allergy (Unknown, Verified 05/08/23 09:08) HIVES oxycodone [From OXYCONTIN] Allergy (Unknown, Verified 05/08/23 09:08) ITCHINESS hydroxychloroquine [From Plaquenil] Adverse Reaction (Intermediate, Verified 05/08/23 09:08) Abdominal Pain Medication List - Last Reconciled 05/08/23 by Duong Ram MD aspirin 325 mg PO DAILY blood-glucose sensor (Inside [employer] Jairon 3 Sensor device) As directed dicyclomine 10 mg PO QID PRN 90 days hydrochlorothiazide 25 mg PO DAILY hydromorphone (Dilaudid) 2 mg PO BID latanoprost 0.005% 1 drp ophthalmic (eye) BEDTIME levothyroxine 175 mcg PO DAILY meloxicam 15 mg PO DAILY 90 days pantoprazole 40 mg PO DAILY sertraline 75 mg (1.5 x 50 mg) PO DAILY 90 days tramadol 50 mg PO BID PRN 30 days Tobacco use date assessed: 05/08/23 Dental Screening Dental Screen Date: 05/08/23 Did you have a dental visit in the last 12 months?: Yes Did you have a dental problem in the last 6 months where you did not have access to dental care?: No Was dental information given to patient?: Patient has dentist HPI Annual exam HPI Details 47-year-old obese female with hypertensi on hypothyroidism osteoarthritis of the right knee coming in for physical exam last seen in February 2023. Patient is here for physical exam mammogram up-to-date July 2022 colonoscopy up-to-date August 2022. Review of the notes being followed up by Rheumatology March 2023 schedule for right knee replacement in April seropositive rheumatoid arthritis. R knee arthroplasty Dr. Estefania schultz 04/21/2023 [facility] Medical History (Updated 05/08/23 @ 09:30 by Duong Ram MD) Lalito's thyroiditis Colon cancer screening Insomnia Colon cancer screening Abdominal pain Headache Tick bite Fever Adenomyosis Polycythemia Migraine GERD (gastroesophageal reflux disease) Lumbar degenerative disc disease Obesity (BMI 30-39.9) Osteoarthritis Hypothyroid Hypertension Annual physical exam Surgical History H/O: hysterectomy (~05/2021) History of inguinal hernia repair History of section History of appendectomy History of orthopedic surgery History of arthroscopy of right shoulder Family History Father Alcohol abuse Substance use disorder Mother Cervical cancer Maternal Grandmother Breast cancer Liver cancer Paternal Aunt Breast cancer Paternal Grandfather Heart attack Paternal Grandmother Heart attack Social History (Updated 05/08/23 @ 09:31 by Duong Ram MD) Household Members: Children Household Members Other:: Son Housing: House Alcohol intake: current Alcohol intake frequency: holidays/special occasions only Comment: once Q 6 [facility] 1-2 drinks Patient Tobacco Use Status: Former Tobacco user Quit Date: 08/2019 Tobacco use type: Cigarette Cigarette Packs Per Day: 0.5 Years Smoked: June 2019 e-Cigarette/Vaping Use: Never Used Second Hand Smoke Exposure: No service: No Current occupational status: employed Cognitive needs: No Hearing needs: No Vision needs: No Questionnaire PHQ-9 Over the last 2 weeks, how often have you been bothered by any of the following problems? 1. Little interest or pleasure in doing things: not at all 2. Feeling down, depressed, or hopeless: not at all 3. Trouble falling or staying asleep, or sleeping too much: not at all 4. Feeling tired or having little energy: not at all 5. Poor appetite or overeating: not at all 6. Feeling bad about yourself - or that you are a failure or have let yourself or your family down: not at all 7. Trouble concentrating on things, such as reading the newspaper or watching television: not at all 8. Moving or speaking so slowly that other people could have noticed. Or the opposite - being so fidgety or restless that you have been moving around a lot more than usual: not at all 9. Thoughts that you would be better off or of hurting yourself in some way: not at all Total score: 0 Depression Screening Interpretation: Negative Depression Screening Done: Yes Source: Developed by Drs. Abdias Limon, Yudith Johnson, Gonzalo Mendez and colleagues, with an educational bhargav from [email or web address]. Thrive Questionnaire Date Thrive assessed: 05/08/23 I am a: Patient What is your living situation today?: I have a steady place to live Within the past 12 months, did the food you bought not last and you didn't have the money to get more?: Never true Within the past 12 months, did you worry whether your food would run out before you got money to buy more?: Never true Do you have trouble paying for medicines?: No Do you have trouble getting transportation to medical appointments?: No Do you have trouble paying your heating and electricity bill?: No Do you have trouble taking care of your child, family member or friend?: No Do you have trouble with day-to-day activities such as bathing, preparing meals, shopping, managing finances, etc.?: No Are you currently unemployed and looking for a job?: No Are you interested in more education?: No Please select the resources that you would like help with: None THRIVE Score: 0 AUDIT C Alcohol Use Questionnaire (AUDIT-C) 1. How often do you have a drink containing alcohol?: Monthly or less 2. How many drinks containing alcohol do you have on a typical day when you are drinking?: 1 or 2 3. How often do you have six or more drinks on one occasion?: Never Total Score: 1 DOROTEO-7 AMB Questionnaire DOROTEO-7 Date DOROTEO - 7 assessed: 05/08/23 Feeling nervous, anxious, or on edge: 0 = Not at all Not being able to stop or control worryin = Not at all Worrying too much about different things: 0 = Not at all Trouble relaxin = Not at all Being so restless that it is hard to sit still: 0 = Not at all Becoming easily annoyed or irritable: 0 = Not at all Feeling afraid as if something awful might happen: 0 = Not at all Total DOROTEO-7 score (0-4 normal; 5-9 mild; 10-14 moderate; 15-21 severe): 0 Source: Developed by Drs. Abdias Limon, Yudith Johnson, Gonzalo Mendez and colleagues, with an educational bhargav from [email or web address]. Review of Systems Const Denies poor appetite and Denies weakness Eyes Denies no additional complaints ENT Reports Normal hearing present, Denies dizziness, Denies nasal congestion, Denies tinnitus and Denies sore throat Card Denies chest pain, Denies syncope, Denies rapid heart rate and Denies dyspnea Resp Denies cough and Denies dyspnea GI Denies change in stool character, Reports constipation, Denies diarrhea, Denies nausea and Denies vomiting Denies urinary frequency, Denies difficulty voiding and Denies dysuria Neuro Reports Normal hearing present, Denies confusion, Denies dizziness, Denies syncope and Denies weakness Psych Denies confusion Physical exam (Primary Care) Vital Signs: Last Vital Signs Pulse 91 05/08/23 09:07 BP 122/84 05/08/23 09:07 Pulse Ox 99 05/08/23 09:07 Oxygen Delivery Method Room Air 05/08/23 09:07 BMI result Body Mass Index 40.6 Tobacco/Smoking Status: Tobacco use Status Tobacco use date assessed 05/08/23 05/08/23 09:09 Patient Tobacco Use Status Former Tobacco user 05/08/23 09:09 Tobacco use type Cigarette 05/08/23 09:09 e-Cigarette/Vaping Use Never Used 05/08/23 09:09 PHQ-9: PHQ-9 Score PHQ-9: Total score 0 05/08/23 09:09 Depression Screening Interpretation: Negative Thrive Assessment: Date of Thrive Assessment Date Thrive assessed 05/08/23 05/08/23 09:09 Const General: No confusion Orientation/consciousness: No confusion HENMT Head: Yes normocephalic Ears: external ears normal and TM's normal bilaterally Face and sinus: Yes normal facial exam Mouth: moist mucous membranes Throat: Yes tonsils normal Eyes Conjunctivae: conjunctivae normal Pupils: Equal, round and reactive pupils present and Pupil accommodation reflex normal Direct Ophthalmoscopy: normal light reflex Neck Neck: No lymphadenopathy Thyroid: Thyroid normal Chest Chest palpation & inspection: normal inspection of the chest Resp Effort & Inspection: normal respiratory effort and no audible wheezes Auscultation: clear to auscultation bilaterally, no crackles, no wheezes and lung sounds not diminished Cardio Rate: regular rate Rhythm: regular rhythm Peripheral pulses: radial pulses present and dorsalis pedis present GI Palpation (GI): no masses Auscultation: normal bowel sounds and normoactive bowel sounds Rectal Exam - Female: deferred Skin General skin exam: no rashes or lesions noted Rashes: no rashes Neuro General: No confusion Cranial nerves: Yes Equal, round and reactive pupils present and Yes Normal hearing present Cognition (Neuro): normal cognition Deep tendon reflexes (DTR's): Right brachioradialis reflex intensity grade: 2+, Left brachioradialis reflex intensity grade: 2+, Right patellar reflex intensity grade: 2+ and Left patellar reflex intensity grade: 2+ Extrem Other: Right knee with the hinged brace status post arthroplasty Assessment and Plan Assessment & Plan (1) Annual physical exam: Code(s): Z00.00 - Encounter for general adult medical examination without abnormal findings (2) Primary osteoarthritis of right knee: Comment: 04/21/[address] Estefania suh Code(s): M17.11 - Unilateral primary osteoarthritis, right knee Plan: Last note received right knee arthroplasty planned (3) Rheumatoid arthritis: Comment: Plaquenil 2019 - unable to tolerate due to palpitations and GI upset. Methotrexate March 2021- 4 tabs weekly, she took this for 1 month without issue, then stopped it for hysterectomy. Methotrexate was restarted after surgery but her liver function enzymes were elevated so it was discontinued. LFTs have improved after discontinuing methotrexate Sulfasalazine-September 2021 - 03/21/2022 noncompliance, lightheadedness Good response to prednisone Code(s): M06.9 - Rheumatoid arthritis, unspecified Qualifiers: Rheumatoid arthritis location: unspecified site Rheumatoid factor presence: unspecified presence Qualified Code(s): M06.9 - Rheumatoid arthritis, unspecified Plan: Continue to follow-up with Rheumatology stable (4) Fatty liver: Code(s): K76.0 - Fatty (change of) liver, not elsewhere classified Plan: Low-fat diet and exercise (5) Obesity: Code(s): E66.9 - Obesity, unspecified Plan: Diet and exercise (6) Hypertension: Code(s): I10 - Essential (primary) hypertension Qualifiers: Hypertension type: essential hypertension Qualified Code(s): I10 - Essential (primary) hypertension Plan: Continue with blood pressure medication. Decrease salt intake and exercise presently on hydrochlorothiazide only (7) Hypothyroid: Comment: 1996 Code(s): E03.9 - Hypothyroidism, unspecified Qualifiers: Hypothyroidism type: acquired Qualified Code(s): E03.9 - Hypothyroidism, unspecified Plan: Continue with thyroid medication (8) GERD (gastroesophageal reflux disease): Code(s): K21.9 - Gastro-esophageal reflux disease without esophagitis Plan: Avoid the foods that causes that usually spicy foods, tomato products, juices, coffee, soda and foods that your sensitive to. After eating do not lie down, allow 3-4 hours before in lie down. And keep the head of bed above 30 degrees to avoid the acid from going up. (9) Generalized anxiety disorder: Code(s): F41.1 - Generalized anxiety disorder Plan: Continue with sertraline once a day Orders: Orders Erythrocyte Sedimentation Rate 6 Months M06.9 - Rheumatoid arthritis, unspe cified C Reactive Protein 6 Months M06.9 - Rheumatoid arthritis, unspecified Complete Blood Count Auto Diff 6 Months M06.9 - Rheumatoid arthritis, unspecified Free T4 (Free Thyroxine) 6 Months M06.9 - Rheumatoid arthritis, unspecified Comprehensive Met. Panel 6 Months M06.9 - Rheumatoid arthritis, unspecified Thyroid Stimulating Hormone 6 Months M06.9 - Rheumatoid arthritis, unspecified Vitamin B12 and Folate 6 Months M06.9 - Rheumatoid arthritis, unspecified Lipid Panel 6 Months E78.00 - Pure hypercholesterolemia, unspecified, M06.9 - Rheumatoid arthritis, unspecified Vitamin D 25-OH Total 6 Months M06.9 - Rheumatoid arthritis, unspecified Coding Level of Care Code Est Pt Prev Care 40-64y(07909) Diagnoses Annual physical exam Z00.00 Primary osteoarthritis of right knee M17.11 Rheumatoid arthritis, involving unspecified site, unspecified whether rheumatoid factor present M06.9 Rheumatoid arthritis location: unspecified site Rheumatoid factor presence: unspecified presence Fatty liver K76.0 Obesity E66.9 Essential hypertension I10 Hypertension type: essential hypertension Acquired hypothyroidism E03.9 Hypothyroidism type: acquired GERD (gastroesophageal reflux disease) K21.9 Generalized anxiety disorder F41.1
== END 2023-05-08 09:46 | disposition home or self-care (01) ==
PROVIDERS: Visit Provider Internal Medicine
DX: Z00.00 Encounter for general adult medical examination without abnormal findings (principal); Z68.41 Body mass index [BMI] 40.0-44.9, adult; E66.9 Obesity, unspecified; Z23 Encounter for immunization; M06.9 Rheumatoid arthritis, unspecified; M17.11 Unilateral primary osteoarthritis, right knee; K76.0 Fatty (change of) liver, not elsewhere classified; I10 Essential (primary) hypertension; E03.9 Hypothyroidism, unspecified; K21.9 Gastro-esophageal reflux disease without esophagitis; F41.1 Generalized anxiety disorder
CPT/HCPCS: 90471; 90686; 99396

== ENCOUNTER 2023-08-08 09:54 | Outpatient (REF) | payer OTHER, SELFPAY | END 2023-08-08 09:55 | disposition home or self-care (01) | LOC: HO.MAMMO 09:54 | PROVIDERS: PCP Internal Medicine; Visit Provider Obstetrics & Gynecology | DX: Z12.31 Encounter for screening mammogram for malignant neoplasm of breast (principal) | CPT/HCPCS: 77063; 77067 ==

== ENCOUNTER → 2023-08-08 10:00 | Outpatient (BNV) | payer OTHER, SELFPAY | PROVIDERS: PCP Internal Medicine; Visit Provider Radiology Diagnostic Radiology | DX: Z12.31 Encounter for screening mammogram for malignant neoplasm of breast (principal) | CPT/HCPCS: 77063; 77067 ==

== ENCOUNTER 2023-11-06 08:31 | Outpatient (AMB) | payer OTHER, SELFPAY ==
--- NOTE | 2023-11-06 08:46 | A.OFFPC_ITS ---
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: No Allergies Biaxin Allergy (Unknown, Verified 11/06/23 08:47) tongue swelling clarithromycin [From BIAXIN] Allergy (Unknown, Verified 11/06/23 08:47) SWELLING AND HIVES latex [LATEX] Allergy (Unknown, Verified 11/06/23 08:47) HIVES oxycodone [From OXYCONTIN] Allergy (Unknown, Verified 11/06/23 08:47) ITCHINESS hydroxychloroquine [From Plaquenil] Adverse Reaction (Intermediate, Verified 11/06/23 08:47) Abdominal Pain Tobacco use date assessed: 05/08/23 Dental Screening Dental Screen Date: 05/08/23 HPI 6 month f/u HPI Details 48-year-old morbidly obese female with r ight knee osteoarthritis rheumatoid arthritis fatty liver hypertension hypothyroidism GERD and generalized anxiety disorder last seen in April 2023. Patient is mammogram is due, up-to-date with colonoscopy in 09/06/2022. [facility] Medical History (Updated 11/06/23 @ 08:57 by Duong Ram MD) Reactive hypoglycemia Acute bronchitis Viral upper respiratory illness Lalito's thyroiditis Colon cancer screening Insomnia Colon cancer screening Abdominal pain Headache Tick bite Fever Adenomyosis Polycythemia Migraine GERD (gastroesophageal reflux disease) Lumbar degenerative disc disease Obesity (BMI 30-39.9) Osteoarthritis Hypothyroid Hypertension Annual physical exam Surgical History H/O: hysterectomy (~05/2021) History of inguinal hernia repair History of section History of appendectomy History of orthopedic surgery History of arthroscopy of right shoulder Family History Father Alcohol abuse Substance use disorder Mother Cervical cancer Maternal Grandmother Breast cancer Liver cancer Paternal Aunt Breast cancer Paternal Grandfather Heart attack Paternal Grandmother Heart attack Social History (Updated 05/08/23 @ 09:31 by Duong Ram MD) Household Members: Children Household Members Other:: Son Housing: House Alcohol intake: current Alcohol intake frequency: holidays/special occasions only Comment: once Q 6 [facility] 1-2 drinks Patient Tobacco Use Status: Former Tobacco user Tobacco use type: Cigarette Cigarette Packs Per Day: 0.5 Years Smoked: June 2019 Packs Per Year: 0 e-Cigarette/Vaping Use: Never Used Second Hand Smoke Exposure: No service: No Current occupational status: employed Cognitive needs: No Hearing needs: No Vision needs: No Questionnaire Thrive Questionnaire Date Thrive assessed: 05/08/23 AUDIT C Alcohol Use Questionnaire (AUDIT-C) 1. How often do you have a drink containing alcohol?: Monthly or less 2. How many drinks containing alcohol do you have on a typical day when you are drinking?: 1 or 2 3. How often do you have six or more drinks on one occasion?: Never Total Score: 1 DOROTEO-7 AMB Questionnaire DOROTEO-7 Date DOROTEO - 7 assessed: 05/08/23 Source: Developed by Drs. Abdias Limon, Yudith Johnson, Gonzalo Mendez and colleagues, with an educational bhargav from [email or web address]. Physical exam (Primary Care) Vital Signs: Last Vital Signs Pulse 93 11/06/23 08:47 BP 120/80 11/06/23 09:02 Pulse Ox 98 11/06/23 08:47 Oxygen Delivery Method Room Air 11/06/23 08:47 BMI result Body Mass Index 42.2 Tobacco/Smoking Status: Tobacco use Status Tobacco use date assessed 05/08/23 11/06/23 08:46 Patient Tobacco Use Status Former Tobacco user 11/06/23 08:46 Tobacco use type Cigarette 11/06/23 08:46 e-Cigarette/Vaping Use Never Used 11/06/23 08:46 Thrive Assessment: Date of Thrive Assessment Date Thrive assessed 05/08/23 11/06/23 08:46 Const General: alert; No acute distress Eyes Conjunctivae: conjunctivae normal Resp Auscultation: clear to auscultation bilaterally Cardio Rate: regular rate Rhythm: regular rhythm GI Inspection: Yes normal to inspection Extrem General: Yes normal to inspection and No edema Assessment and Plan Assessment & Plan (1) Rheumatoid arthritis: Comment: Plaquenil 2019 - unable to tolerate due to palpitations and GI upset. Methotrexate March 2021- 4 tabs weekly, she took this for 1 month without issue, then stopped it for hysterectomy. Methotrexate was restarted after surgery but her liver function enzymes were elevated so it was discontinued. LFTs have improved after discontinuing methotrexate Sulfasalazine-September 2021 - 03/21/2022 noncompliance, lightheadedness Good response to prednisone Code(s): M06.9 - Rheumatoid arthritis, unspecified Qualifiers: Rheumatoid arthritis location: unspecified site Rheumatoid factor presence: unspecified presence Qualified Code(s): M06.9 - Rheumatoid arthritis, unspecified Plan: Continue follow-up with Rheumatology (2) Fatty liver: Code(s): K76.0 - Fatty (change of) liver, not elsewhere classified Plan: Low-fat diet and exercise (3) Obesity: Code(s): E66.9 - Obesity, unspecified Plan: Diet and exercise (4) GERD (gastroesophageal reflux disease): Code(s): K21.9 - Gastro-esophageal reflux disease without esophagitis Plan: Avoid the foods that causes that usually spicy foods, tomato products, juices, coffee, soda and foods that your sensitive to. After eating do not lie down, allow 3-4 hours before in lie down. And keep the head of bed above 30 degrees to avoid the acid from going up. On pantoprazole 40 mg once a day (5) Generalized anxiety disorder: Code(s): F41.1 - Generalized anxiety disorder Plan: Continue with therapy with sertraline (6) Hypothyroid: Comment: 1996 Code(s): E03.9 - Hypothyroidism, unspecified Qualifiers: Hypothyroidism type: acquired Qualified Code(s): E03.9 - Hypothyroidism, unspecified Plan: Continue with thyroid medication and reminded about blood work (7) Hypertension: Code(s): I10 - Essential (primary) hypertension Qualifiers: Hypertension type: essential hypertension Qualified Code(s): I10 - Essential (primary) hypertension Plan: Continue with blood pressure medication. Decrease salt intake and exercise on hydrochlorothiazide (8) Primary osteoarthritis of right knee: Comment: 04/21/[address] Estefania suh Code(s): M17.11 - Unilateral primary osteoarthritis, right knee Plan: Keep active Medications: Refilled levothyroxine 175 mcg PO DAILY 90 tabs 1RF pantoprazole 40 mg PO DAILY 90 tabs 0RF K21.9 - Gastro-esophageal reflux disease without esophagitis Coding Level of Care Code Est Pt Level 4 (28875) Diagnoses Rheumatoid arthritis, involving unspecified site, unspecified whether rheumatoid factor present M06.9 Rheumatoid arthritis location: unspecified site Rheumatoid factor presence: unspecified presence Fatty liver K76.0 Obesity E66.9 GERD (gastroesophageal reflux disease) K21.9 Generalized anxiety disorder F41.1 Acquired hypothyroidism E03.9 Hypothyroidism type: acquired Essential hypertension I10 Hypertension type: essential hypertension Primary osteoarthritis of right knee M17.11
[2023-11-06 08:47] VITALS: BP 102/68; PULSE 93; O2SAT 98; BMI 42.2
[2023-11-06 09:02] VITALS: BP 120/80
== END 2023-11-06 09:14 | disposition home or self-care (01) ==
PROVIDERS: PCP Internal Medicine; Visit Provider Internal Medicine
DX: M06.9 Rheumatoid arthritis, unspecified (principal); K76.0 Fatty (change of) liver, not elsewhere classified; Z68.41 Body mass index [BMI] 40.0-44.9, adult; E66.9 Obesity, unspecified; K21.9 Gastro-esophageal reflux disease without esophagitis; F41.1 Generalized anxiety disorder; E03.9 Hypothyroidism, unspecified; I10 Essential (primary) hypertension; M17.11 Unilateral primary osteoarthritis, right knee
CPT/HCPCS: 99214

== ENCOUNTER → 2023-12-24 14:05 | Outpatient (RCR) | payer OTHER, SELFPAY ==
--- NOTE | 2020-05-25 09:13 | PM.HEMONCPN ---
Medical Summary - Medical Summary Date of Service: 05/25/20 Chief complaint: Follow-up Medical Summary: Diagnosis: Polycythemia Elevated hemoglobin/hematocrit since 2014. Chronic smoker, no history of COPD or sleep apnea. erythropoietin of 2.3, LDH slightly elevated at 256. JAK2 mutation including Exon 12 mutation, CALR mutation negative. Normal serum protein electrophoresis and immunofixation. Ultrasound abdomen performed May 2019 shows increase in hepatic echotexture consistent with fatty infiltration. No kidney lesions. She received therapeutic phlebotomy. Interval History Interval history: Patient is here in follow-up. She is doing quite well and has no complaints today. She only had to go for 2 therapeutic phlebotomies. After that her hematocrit has been under 45 and she has not required therapeutic phlebotomy. She continues to abstain from smoking and she has lost some weight as well. Review of Systems - Constitutional Reports no additional constitutional complaints - Cardiovascular Reports no additional cardiovascular complaints - Respiratory Reports no additional respiratory complaints [facility] Medical History: Medical History (Last Updated 04/03/20 @ 12:23 by Duong Ram MD) Adenomyosis GERD (gastroesophageal reflux disease) Hypertension Hypothyroid Lumbar degenerative disc disease Migraine Obesity (BMI 30-39.9) Osteoarthritis Polycythemia Family History: Family History (Last Updated 04/06/20 @ 16:21 by Duong Ram MD) Father Alcohol abuse Mother Ovarian cancer Maternal Grandmother Breast cancer Liver cancer Paternal Aunt Breast cancer Surgical History: Surgical History (Last Updated 03/06/20 @ 13:39 by Ashley Zee [facility]) History of appendectomy History of arthroscopy of right shoulder History of section History of inguinal hernia repair History of orthopedic surgery Social History: Social History (Last Updated 05/25/20 @ 09:19 by Wendy Fonseca) Alcohol History: Alcohol intake: current Alcohol History Details: Alcohol intake frequency: holiday/special occasion Tobacco History: Smoking Status: Former smoker Tobacco Type: Cigarette Packs Per Day: 0.5 Cigarettes Per Day: 10.0 Smoking Quit Date: 2018 Substance Use History: Use of substances other than those prescribed or required for medical reasons: No Oncology Screenings - ECOG Performance Status ECOG Performance Status: 0 Home Medications and Allergies Home Medications Medication Instructions Recorded Confirmed Type dicyclomine 10 mg capsule 10 mg PO QID 04/06/20 05/25/20 History sumatriptan succinate 50 mg tablet 50 mg PO Q2-4H PRN 04/06/20 05/25/20 History hydroxychloroquine 200 mg PO DAILY 05/25/20 05/25/20 History Allergies Allergy/AdvReac Type Severity Reaction Status Date / Time Biaxin Allergy Unknown tongue Verified 04/06/20 16:04 swelling clarithromycin [From BIAXIN] Allergy Unknown SWELLING Verified 04/06/20 16:04 AND HIVES latex [LATEX] Allergy Unknown HIVES Verified 03/06/20 13:38 oxycodone [From OXYCONTIN] Allergy Unknown ITCHINESS Verified 04/06/20 16:04 Exam Vital signs: Vital Signs Temp Pulse Resp BP Pulse Ox 05/25/20 09:16 97.4 F 70 12 127/74 99 Intake and Output 05/24/20 05/25/20 05/25/20 22:59 06:59 14:59 Other: Weight 92.5 kg Patient Weight 05/26/20 06:59 Weight 92.5 kg - Constitutional Present: no acute distress - Routine Respiratory Exam Present: CTAB - Routine Cardiovascular Exam Cardiovascular: Present: S1, S2 Data - Labs Labs: Laboratory Tests 10/18/19 04/04/20 09:55 06:15 WBC 7.2 RBC 5.08 Hgb 15.4 Hct 44.7 MCV 88.0 MCH 30.3 MCHC 34.5 RDW 12.9 RDW Coeff of Zack 12.5 Plt Count 324 Progress Note: A/P (1) Polycythemia Problem details: July 2019 Status: Chronic Assessment and plan: 1. This is a 44-year-old woman with polycythemia, probably related to smoking or Hereditary polycythemia. Serum erythropoietin level is suppressed 2.3 and JAK2 mutation including Exon 12 mutation and CALR were negative. Several family members including son and sister have elevated red blood cells. Paternal aunt may have myeloproliferative neoplasm. This does raise suspicion for Hereditary polycythemia. Familial polycythemia is rare but may be caused by high oxygen affinity hemoglobinopathy, congenital methemoglobinemia and [place]uvash polycythemia to mention just a few. Testing for these happens only in certain labs. For now she will be monitored, further tests to be ordered if necessary. She has quit smoking. She has not required therapeutic phlebotomy for the past 6 months. She deferred blood work today. CBC was normal in March 2020. This will be done on her next visit. Follow-up in 4 months. - Time Spent With Patient Total time spent is greater than 50% in coordination of care (as documented) at patient's floor/unit and/or counseling patient: 25 - 35 minutes
[2020-05-25 09:16] VITALS: BP 127/74; PULSE 70; RESP 12; TEMP 36.3; O2SAT 99; BMI 36.1
--- NOTE | 2020-09-21 13:02 | P.PNHO_ITS ---
Medical Summary - Medical Summary Date of Service: 09/21/20 Chief complaint: follow-up Medical Summary: Diagnosis: Polycythemia Elevated hemoglobin/hematocrit since 2014. Chronic smoker, no history of COPD or sleep apnea. erythropoietin of 2.3, LDH slightly elevated at 256. JAK2 mutation including Exon 12 mutation, CALR mutation negative. Normal serum protein electrophoresis and immunofixation. Ultrasound abdomen performed May 2019 shows increase in hepatic echotexture consistent with fatty infiltration. No kidney lesions. She received therapeutic phlebotomy. Interval History Interval history: patient is here in follow-up. She is doing quite well and has no complaints today. She is exercising more, trying to lose weight. She has quit smoking completely. Review of Systems - Constitutional Reports as per HPI, Reports no additional constitutional complaints PMFSH Medical History: Medical History (Last Updated 04/03/20 @ 12:23 by Duong Ram MD) Adenomyosis GERD (gastroesophageal reflux disease) Hypertension Hypothyroid Lumbar degenerative disc disease Migraine Obesity (BMI 30-39.9) Osteoarthritis Polycythemia Family History: Family History (Last Updated 04/06/20 @ 16:21 by Duong Ram MD) Father Alcohol abuse Mother Ovarian cancer Maternal Grandmother Breast cancer Liver cancer Paternal Aunt Breast cancer Surgical History: Surgical History (Last Updated 03/06/20 @ 13:39 by Ashley Zee [facility]) History of appendectomy History of arthroscopy of right shoulder History of section History of inguinal hernia repair History of orthopedic surgery Social History: Social History (Last Updated 09/21/20 @ 13:12 by Wendy Fonseca) Alcohol History: Alcohol intake: current Alcohol History Details: Alcohol intake frequency: holiday/special occasion Tobacco History: Patient Tobacco Use Status: Never used Tobacco Cigarette Packs Per Day: 0.5 Smoke Quit Date: 08/2019 Substance Use History: Use of substances other than those prescribed or required for medical reasons : No Home Medications and Allergies Home Medications Medication Instructions Recorded Confirmed Type dicyclomine 10 mg capsule 10 mg PO QID 04/06/20 08/03/20 History sumatriptan succinate 50 mg tablet 50 mg PO Q2-4H PRN 04/06/20 08/03/20 History hydroxychloroquine 200 mg PO DAILY 05/25/20 08/03/20 History Allergies Allergy/AdvReac Type Severity Reaction Status Date / Time Biaxin Allergy Unknown tongue Verified 04/06/20 16:04 swelling clarithromycin [From BIAXIN] Allergy Unknown SWELLING Verified 04/06/20 16:04 AND HIVES latex [LATEX] Allergy Unknown HIVES Verified 03/06/20 13:38 oxycodone [From OXYCONTIN] Allergy Unknown ITCHINESS Verified 04/06/20 16:04 Exam Vital signs: Vital Signs Temp 97.4 F 05/25/20 09:16 Pulse 70 05/25/20 09:16 Resp 12 05/25/20 09:16 BP 127/74 05/25/20 09:16 Pulse Ox 99 05/25/20 09:16 Weight 92.5 kg Body Mass Index 36.1 - Constitutional Present: no acute distress - Routine Respiratory Exam Present: CTAB - Routine Cardiovascular Exam Cardiovascular: Present: S1, S2 Data - Labs Labs: Laboratory Tests 10/18/19 04/04/20 09:55 06:15 WBC 7.2 RBC 5.08 Hgb 15.4 Hct 44.7 MCV 88.0 MCH 30.3 MCHC 34.5 RDW 12.9 RDW Coeff of Zack 12.5 Plt Count 324 Progress Note: A/P (1) Polycythemia Problem details: July 2019 Status: Chronic Assessment and plan: 1. This is a 45-year-old woman with polycythemia, probably related to smoking or Hereditary polycythemia. Serum erythropoietin level is suppressed 2.3 and JAK2 mutation including Exon 12 mutation and CALR were negative. Several family members including son and sister have elevated red blood cells. Paternal aunt may have myeloproliferative neoplasm. She has quit smoking. She has not required therapeutic phlebotomy for nearly a year. Blood work in August 2020 showed a hematocrit of 45. she does not need therapeutic phlebotomy. Follow-up in 6 months. - Time Spent With Patient Total time spent is greater than 50% in coordination of care (as documented) at patient's floor/unit and/or counseling patient: 15 - 24 minutes
[2020-09-21 13:08] VITALS: BP 135/65; PULSE 84; RESP 12; TEMP 36.6; O2SAT 98; BMI 37.7
== END | disposition home or self-care (01) ==
LOC: HO.ONC 05-25 09:03
PROVIDERS: PCP Internal Medicine; Visit Provider Internal Medicine
DX: D75.1 Secondary polycythemia (principal); Z87.891 Personal history of nicotine dependence
CPT/HCPCS: 99214

== ENCOUNTER 2024-02-10 13:25 | Outpatient (AMB) | payer OTHER, SELFPAY ==
--- NOTE | 2024-02-10 13:31 | A.OFFPC_ITS ---
Vital Signs 02/10/24 13:32 Height 5 ft 3 in Weight 242 lb BMI 42.9 BP 128/80 Blood Pressure Location Lt brachial Position Sitting Pulse 80 Pulse Source Pulse Oximeter Pulse Oximetry (%) 97 Oxygen Delivery Method Room Air Intake Visit Reasons: Ear Infection Allergies Biaxin Allergy (Unknown, Verified 02/10/24 13:32) tongue swelling clarithromycin [From BIAXIN] Allergy (Unknown, Verified 02/10/24 13:32) SWELLING AND HIVES latex [LATEX] Allergy (Unknown, Verified 02/10/24 13:32) HIVES oxycodone [From OXYCONTIN] Allergy (Unknown, Verified 02/10/24 13:32) ITCHINESS hydroxychloroquine [From Plaquenil] Adverse Reaction (Intermediate, Verified 02/10/24 13:32) Abdominal Pain Tobacco use date assessed: 05/08/23 Dental Screening Dental Screen Date: 05/08/23 HPI Ear Infection HPI Details 48-year-old obese female with rheumatoid arthritis fatty liver GERD generalized anxiety disorder hypertension hypothyroidism and osteoarthritis of the knee coming in for an acute problem last seen in 11/07/2023.last week R ear congestion - took sudaphed- which did not help fullness R eare R jaw pain L ear fine, urgent center - see and was rx drops- 1 day [facility] Medical History (Updated 02/10/24 @ 14:13 by Duong Ram MD) Otitis externa of right ear Reactive hypoglycemia Acute bronchitis Viral upper respiratory illness Lalito's thyroiditis Colon cancer screening Insomnia Colon cancer screening Abdominal pain Headache Tick bite Fever Adenomyosis Polycythemia Migraine GERD (gastroesophageal reflux disease) Lumbar degenerative disc disease Obesity (BMI 30-39.9) Osteoarthritis Hypothyroid Hypertension Annual physical exam Surgical History H/O: hysterectomy (~05/2021) History of inguinal hernia repair History of section History of appendectomy History of orthopedic surgery History of arthroscopy of right shoulder Family History Father Alcohol abuse Substance use disorder Mother Cervical cancer Maternal Grandmother Breast cancer Liver cancer Paternal Aunt Breast cancer Paternal Grandfather Heart attack Paternal Grandmother Heart attack Social History (Updated 05/08/23 @ 09:31 by Duong Ram MD) Household Members: Children Household Members Other:: Son Housing: House Alcohol intake: current Alcohol intake frequency: holidays/special occasions only Comment: [facility] Q [facility]2 drinks Patient Tobacco Use Status: Former Tobacco user Tobacco use type: Cigarette Cigarette Packs Per Day: 0.5 Years Smoked: June 2019 e-Cigarette/Vaping Use: Never Used Second Hand Smoke Exposure: No service: No Current occupational status: employed Cognitive needs: No Hearing needs: No Vision needs: No Questionnaire PHQ-9 Over the last 2 weeks, how often have you been bothered by any of the following problems? 1. Little interest or pleasure in doing things: not at all 2. Feeling down, depressed, or hopeless: not at all 3. Trouble falling or staying asleep, or sleeping too much: not at all 4. Feeling tired or having little energy: not at all 5. Poor appetite or overeating: not at all 6. Feeling bad about yourself - or that you are a failure or have let yourself or your family down: not at all 7. Trouble concentrating on things, such as reading the newspaper or watching television: not at all 8. Moving or speaking so slowly that other people could have noticed. Or the opposite - being so fidgety or restless that you have been moving around a lot more than usual: not at all 9. Thoughts that you would be better off or of hurting yourself in some way: not at all Total score: 0 Depression Screening Interpretation: Negative Depression Screening Done: Yes Source: Developed by Drs. Abdias Limon, Gonzalo Sidhu and colleagues, with an educational bhargav from [employer]. Thrive Questionnaire Date Thrive assessed: 05/08/23 AUDIT C Alcohol Use Questionnaire (AUDIT-C) 1. How often do you have a drink containing alcohol?: Monthly or less 2. How many drinks containing alcohol do you have on a typical day when you are drinking?: 1 or 2 3. How often do you have six or more drinks on one occasion?: Never Total Score: 1 DOROTEO-7 AMB Questionnaire DOROTEO-7 Date DOROTEO - 7 assessed: 05/08/23 Source: Developed by Drs. Abdias Limon, Gonzalo Sidhu and colleagues, with an educational bhargav from [employer]. Physical exam (Primary Care) Vital Signs: Last Vital Signs Pulse 80 02/10/24 13:32 BP 128/80 02/10/24 13:32 Pulse Ox 97 02/10/24 13:32 Oxygen Delivery Method Room Air 02/10/24 13:32 BMI result Body Mass Index 42.9 Tobacco/Smoking Status: Tobacco use Status Tobacco use date assessed 05/08/23 02/10/24 13:33 Patient Tobacco Use Status Former Tobacco user 02/10/24 13:33 Tobacco use type Cigarette 02/10/24 13:33 e-Cigarette/Vaping Use Never Used 02/10/24 13:33 PHQ-9: PHQ-9 Score PHQ-9: Total score 0 02/10/24 13:33 Depression Screening Interpretation: Negative Thrive Assessment: Date of Thrive Assessment Date Thrive assessed 05/08/23 02/10/24 13:33 HENMT Other: Right Tragal tenderness, pinna pulling tender whitish liquid when creamy discharge noted in the ear. Because of the ear drop being given I doubt this is fungal infection. Coding Level of Care Code Est Pt Level 3 (82554) Diagnoses Otitis media, right H66.91 Assessment & Plan Assessment & Plan (1) Otitis media, right: Code(s): H66.91 - Otitis media, unspecified, right ear Category: Medical Plan: Discussed with the patient continue with the ear drop and will add oral antibiotic to treat for otitis media. Medications: New azithromycin (Zithromax) For 250 mg dose pack: take 500 mg today (day 1), then 250 mg for 4 days (days 2-5) PO 6 tabs 0RF H66.91 - Otitis media, unspecified, right ear azithromycin (Zithromax) For 250 mg dose pack: take 500 mg today (day 1), then 250 mg for 4 days (days 2-5) PO 6 tabs 0RF H66.91 - Otitis media, unspecified, right ear
[2024-02-10 13:32] VITALS: BP 128/80; PULSE 80; O2SAT 97; BMI 42.9
== END 2024-02-10 14:16 | disposition home or self-care (01) ==
PROVIDERS: PCP Internal Medicine; Visit Provider Internal Medicine
DX: H66.91 Otitis media, unspecified, right ear (principal)

== ENCOUNTER → 2024-02-10 13:25 | Outpatient (BNVA) | payer OTHER, SELFPAY | PROVIDERS: PCP Internal Medicine; Visit Provider Internal Medicine ==

== ENCOUNTER 2024-05-13 09:00 | Outpatient (AMB) | payer OTHER, SELFPAY ==
--- NOTE | 2024-05-13 09:08 | A.OFFPC_ITS ---
Vital Signs 05/13/24 09:09 05/13/24 09:25 Height 5 ft 3 in Weight 245 lb 8 oz BMI 43.5 BP 134/72 128/80 Blood Pressure Location Lt brachial Lt brachial Position Sitting Sitting Pulse 87 Pulse Source Pulse Oximeter Temp 97.1 F Temp Source Skin Pulse Oximetry (%) 98 Oxygen Delivery Method Room Air Intake Visit Reasons: pe Intake Note: Patient is here today for a physical. Centerpuncher Required: No Digital Composer: Not Required per policy Accompanied by: Self / Same As Patient Allergies Biaxin Allergy (Unknown, Verified 05/13/24 09:09) tongue swelling clarithromycin [From BIAXIN] Allergy (Unknown, Verified 05/13/24 09:09) SWELLING AND HIVES latex [LATEX] Allergy (Unknown, Verified 05/13/24 09:09) HIVES oxycodone [From OXYCONTIN] Allergy (Unknown, Verified 05/13/24 09:09) ITCHINESS hydroxychloroquine [From Plaquenil] Adverse Reaction (Intermediate, Verified 05/13/24 09:09) Abdominal Pain Medication List - Last Reconciled 05/13/24 by Duong Ram MD hydrochlorothiazide 25 mg PO DAILY latanoprost 0.005% 1 drp ophthalmic (eye) BEDTIME levothyroxine 175 mcg PO DAILY magnesium glycinate 100 mg PO DAILY melatonin 10 mg PO BEDTIME PRN meloxicam 15 mg PO DAILY 90 days pantoprazole 40 mg PO DAILY sertraline 75 mg (1.5 x 50 mg) PO DAILY 90 days Tobacco use date assessed: 05/13/24 Dental Screening Dental Screen Date: 05/13/24 Did you have a dental visit in the last 12 months?: Yes Did you have a dental problem in the last 6 months where you did not have access to dental care?: No Was dental information given to patient?: Patient has dentist HPI pe HPI Details joint pain The patient is a 48-year-old female presenting with menopausal symptoms and joint pain. She reports night sweats and temperature fluctuations suggestive of menopausal changes. She experiences joint pain, particularly in her hands, worsening over the last few months. Pain is described as stabbing and constant, affecting daily activities such as opening objects. Patient has a history of arthritis and has been utilizing Meloxicam with limited relief. Recent laser eye procedure to alleviate elevated intraocular pressure initially suspected to be glaucoma, though no glaucoma is present now. Additionally, she reports restless legs at night, disturbing sleep patterns and possible sleep apnea due to frequent leg cramping and snoring. Family history includes heart disease from the paternal side and a maternal history of lung cancer. - Regular blood pressure monitoring - Eye examination and monitoring for cat aracts - Previous tetanus shot discussed for up date (every 10 years) - Current on influenza vaccination - Medication adjustment for hypertension discussed - Magnesium supplementation to address l eg cramps - Works six days a week in [employer], [place] occupational neck and back pain - Drinks alcohol rarely, approximately o nce or twice a year - Denies current cigarette use - Previously attempted cannabis edibles for sleep with no benefit - Neurological: Denies passing out; ethel es nausea and vomiting. - ENMT: Reports ear ringing; denies hear ing troubles. - Cardiovascular: Denies chest pain. - Respiratory: Denies shortness of breat h. - Gastrointestinal: Occasional heartburn ; bowel movements good. - Genitourinary: Wakes up one time at ght to urinate. - Musculoskeletal: Reports restless legs , nightly cramps and discomfort, and chronic joint pain in hands. - Endocrine: Previously reported issues with thyroid medication. - Psychiatric: Reports sleep disturbance s due to restless legs. - Labs: Blood work pending for ilan lopez review [facility] Medical History (Updated 05/13/24 @ 10:19 by Duong Ram MD) Obesity Otitis externa of right ear Reactive hypoglycemia Acute bronchitis Viral upper respiratory illness Lalito's thyroiditis Colon cancer screening Insomnia Colon cancer screening Abdominal pain Headache Tick bite Fever Adenomyosis Polycythemia Migraine GERD (gastroesophageal reflux disease) Lumbar degenerative disc disease Obesity (BMI 30-39.9) Osteoarthritis Hypothyroid Hypertension Annual physical exam Surgical History (Updated 05/13/24 @ 09:29 by Duong Ram MD) Eye pressure History of total right knee replacement H/O: hysterectomy (~05/2021) History of inguinal hernia repair History of section History of appendectomy History of orthopedic surgery History of arthroscopy of right shoulder Family History (Updated 05/13/24 @ 09:33 by Duong Ram MD) Father Alcohol abuse Substance use disorder Mother Cervical cancer Lung cancer Maternal Grandmother Breast cancer Liver cancer Paternal Aunt Breast cancer Paternal Grandfather Heart attack Paternal Grandmother Heart attack Social History (Updated 05/13/24 @ 09:33 by Duong Ram MD) Household Members: Children Household Members Other:: Son Housing: House Alcohol intake: current Alcohol intake frequency: holidays/special occasions only Comment: once Q 6 months 1-2 drinks Patient Tobacco Use Status: Former Tobacco user Tobacco use type: Cigarette Cigarette Packs Per Day: 0.5 Years Smoked: June 2019 e-Cigarette/Vaping Use: Never Used Second Hand Smoke Exposure: Yes service: No Current occupational status: employed Cognitive needs: No Hearing needs: No Vision needs: No Questionnaire PHQ-9 Over the last 2 weeks, how often have you been bothered by any of the following problems? 1. Little interest or pleasure in doing things: not at all 2. Feeling down, depressed, or hopeless: not at all 3. Trouble falling or staying asleep, or sleeping too much: not at all 4. Feeling tired or having little energy: not at all 5. Poor appetite or overeating: not at all 6. Feeling bad about yourself - or that you are a failure or have let yourself or your family down: not at all 7. Trouble concentrating on things, such as reading the newspaper or watching television: not at all 8. Moving or speaking so slowly that other people could have noticed. Or the opposite - being so fidgety or restless that you have been moving around a lot more than usual: not at all 9. Thoughts that you would be better off or of hurting yourself in some way: not at all Total score: 0 Depression Screening Interpretation: Negative Depression Screening Done: Yes Source: Developed by Drs. Abdias Limon, Yudith Johnson, Gonzalo Mendez and colleagues, with an educational bhargav from [employer]. Thrive Questionnaire Date Thrive assessed: 05/13/24 I am a: Patient What is your living situation today?: I have a steady place to live Within the past 12 months, did the food you bought not last and you didn't have the money to get more?: I choose not to answer this question Within the past 12 months, did you worry whether your food would run out before you got money to buy more?: I choose not to answer this question Do you have trouble paying for medicines?: I choose not to answer this question Do you have trouble getting transportation to medical appointments?: I choose not to answer this question Do you have trouble paying your heating and electricity bill?: I choose not to answer this question Do you have trouble taking care of your child, family member or friend?: I choose not to answer this question Do you have trouble with day-to-day activities such as bathing, preparing meals, shopping, managing finances, etc.?: I choose not to answer this question Are you currently unemployed and looking for a job?: No Are you interested in more education?: I choose not to answer this question Please select the resources that you would like help with: None Currently or been in a relationship where the following occur: No concerns reported and I choose not to answer THRIVE Score: 0 AUDIT C Alcohol Use Questionnaire (AUDIT-C) 1. How often do you have a drink containing alcohol?: Never Total Score: 0 DOROTEO-7 AMB Questionnaire DOROTEO-7 Date DOROTEO - 7 assessed: 05/13/24 Feeling nervous, anxious, or on edge: 0 = Not at all Not being able to stop or control worryin = Not at all Worrying too much about different things: 0 = Not at all Trouble relaxin = Not at all Being so restless that it is hard to sit still: 0 = Not at all Becoming easily annoyed or irritable: 0 = Not at all Feeling afraid as if something awful might happen: 0 = Not at all Total DOROTEO-7 score (0-4 normal; 5-9 mild; 10-14 moderate; 15-21 severe): 0 Source: Developed by Drs. Abdias Limon, Yudith Johnson, Gonzalo Mendez and colleagues, with an educational bhargav from [employer]. Review of Systems Const Denies poor appetite and Denies weakness Eyes Denies no additional complaints ENT Reports Normal hearing present, Denies dizziness, Denies nasal congestion, Denies tinnitus and Denies sore throat Card Denies chest pain, Denies syncope, Denies rapid heart rate and Denies dyspnea Resp Denies cough and Denies dyspnea GI Denies change in stool character, Reports constipation, Denies diarrhea, Denies nausea and Denies vomiting Denies urinary frequency, Denies difficulty voiding and Denies dysuria Neuro Reports Normal hearing present, Denies confusion, Denies dizziness, Denies syncope and Denies weakness Psych Denies confusion Physical exam (Primary Care) Vital Signs: Last Vital Signs Temp 97.1 F 05/13/24 09:09 Pulse 87 05/13/24 09:09 BP 134/72 05/13/24 09:09 Pulse Ox 98 05/13/24 09:09 Oxygen Delivery Method Room Air 05/13/24 09:09 BMI result Body Mass Index 43.5 Tobacco/Smoking Status: Tobacco use Status Tobacco use date assessed 05/13/24 05/13/24 09:15 Patient Tobacco Use Status Former Tobacco user 05/13/24 09:15 Tobacco use type Cigarette 05/13/24 09:15 e-Cigarette/Vaping Use Never Used 05/13/24 09:15 PHQ-9: PHQ-9 Score PHQ-9: Total score 0 05/13/24 09:15 Depression Screening Interpretation: Negative Thrive Assessment: Date of Thrive Assessment Date Thrive assessed 05/13/24 05/13/24 09:15 Currently or been in a relationship where the following occur: No concerns reported and I choose not to answer Const General: No confusion Orientation/consciousness: No confusion HENMT Other: R impacted cerumen, L TM intact Head: Yes normocephalic Ears: external ears normal Face and sinus: Yes normal facial exam Mouth: moist mucous membranes Throat: Yes tonsils normal Eyes Conjunctivae: conjunctivae normal Pupils: Equal, round and reactive pupils present and Pupil accommodation reflex normal Direct Ophthalmoscopy: normal light reflex Neck Neck: No lymphadenopathy Thyroid: Thyroid normal Chest Chest palpation & inspection: normal inspection of the chest Resp Effort & Inspection: normal respiratory effort and no audible wheezes Auscultation: clear to auscultation bilaterally, no crackles, no wheezes and lung sounds not diminished Cardio Rate: regular rate Rhythm: regular rhythm Peripheral pulses: radial pulses present and dorsalis pedis present GI Palpation (GI): no masses Auscultation: normal bowel sounds and normoactive bowel sounds Rectal Exam - Female: deferred Skin General skin exam: no rashes or lesions noted Rashes: no rashes Neuro General: No confusion Cranial nerves: Yes Equal, round and reactive pupils present and Yes Normal hearing present Cognition (Neuro): normal cognition Gait exam (Neuro): Normal gait present Motor exam (neuro): 5/5 motor strength present throughout Deep tendon reflexes (DTR's): Right brachioradialis reflex intensity grade: 2+, Left brachioradialis reflex intensity grade: 2+, Right patellar reflex intensity grade: 2+ and Left patellar reflex intensity grade: 2+ Extrem General: No edema Coding Level of Care Code Est Pt Prev Care 40-64y(37114) Diagnoses Annual physical exam Z00.00 Essential hypertension I10 Hypertension type: essential hypertension Acquired hypothyroidism E03.9 Hypothyroidism type: acquired Morbid obesity E66.01 GERD (gastroesophageal reflux disease) K21.9 Generalized anxiety disorder F41.1 Fatty liver K76.0 Rheumatoid arthritis, involving unspecified site, unspecified whether rheumatoid factor present M06.9 Rheumatoid arthritis location: unspecified site Rheumatoid factor presence: unspecified presence Impacted cerumen of right ear H61.21 Assessment & Plan Assessment & Plan (1) Annual physical exam: Code(s): Z00.00 - Encounter for general adult medical examination without abnormal findings Category: Medical (2) Hypertension: Code(s): I10 - Essential (primary) hypertension Category: Medical Qualifiers: Hypertension type: essential hypertension Qualified Code(s): I10 - Essential (primary) hypertension (3) Hypothyroid: Comment: 1996 Code(s): E03.9 - Hypothyroidism, unspecified Category: Medical Qualifiers: Hypothyroidism type: acquired Qualified Code(s): E03.9 - Hypothyroidism, unspecified (4) Morbid obesity: Code(s): E66.01 - Morbid (severe) obesity due to excess calories Category: Medical (5) GERD (gastroesophageal reflux disease): Code(s): K21.9 - Gastro-esophageal reflux disease without esophagitis Category: Medical (6) Generalized anxiety disorder: Code(s): F41.1 - Generalized anxiety disorder Category: Medical (7) Fatty liver: Code(s): K76.0 - Fatty (change of) liver, not elsewhere classified Category: Medical (8) Rheumatoid arthritis: Comment: Plaquenil 2019 - unable to tolerate due to palpitations and GI upset. Methotrexate March 2021- 4 tabs weekly, she took this for 1 month without issue, then stopped it for hysterectomy. Methotrexate was restarted after surgery but her liver function enzymes were elevated so it was discontinued. LFTs have improved after discontinuing methotrexate Sulfasalazine-September 2021 - 03/21/2022 noncompliance, lightheadedness Good response to prednisone Code(s): M06.9 - Rheumatoid arthritis, unspecified Category: Medical Qualifiers: Rheumatoid arthritis location: unspecified site Rheumatoid factor presence: unspecified presence Qualified Code(s): M06.9 - Rheumatoid arthritis, unspecified (9) Impacted cerumen of right ear: Code(s): H61.21 - Impacted cerumen, right ear Category: Medical Plan - Manage menopausal symptoms conservatively, further discussion regarding hormonal therapies if symptoms exacerbate. - Recommend follow-up with rheumatology for joint pain and potential alternative treatments due to ineffectiveness of current medication. - Prescribe ear drops to alleviate earwax buildup. - Suggest trial of sleep study to investigate possible sleep apnea as indicated by snoring and restless legs. - Maintain current hypertension management with regular monitoring. - Magnesium supplementation at nighttime for restless legs and consultation on exercise/stretching. During today's consultation, we discussed the patient's primary concerns regarding menopausal symptoms and joint pain. We explored management strategies for menopausal changes, including potential hormonal interventions if necessary. The patient's current treatment for arthritis is insufficient, so exploring rheumatological input and adjusted therapy was advised. Earwax issues and potential hearing disturbances were addressed with recommendations made regarding ear care. Patient's restless legs and potential sleep apnea concerns led to advising a sleep study. We discussed there is no evidence of glaucoma, but patient will follow up for cataracts. The importance of maintaining blood pressure control was emphasized, and updating her tetanus vaccine was briefly reviewed. The patient is encouraged to prioritize self-care amidst occupational stress. I advised on cautious use of supplementations and reviewed the indications and potential side effects of medications being taken. - Continue current medications and monitor for any changes in symptoms. - Schedule rheumatology appointment for joint pain evaluation. - Use prescribed ear drops to manage earwax buildup. - Consider a sleep study to assess for potential sleep apnea. - Maintain hypertension regimen and update tetanus vaccine if needed. - Practice stress management techniques to help with occupational demands. - Follow up with lean specialist for continued monitoring of intraocular pressure and emerging cataracts.
[2024-05-13 09:09] VITALS: BP 134/72; PULSE 87; TEMP 36.2; O2SAT 98; BMI 43.5
[2024-05-13 09:25] VITALS: BP 128/80
== END 2024-05-13 09:47 | disposition home or self-care (01) ==
PROVIDERS: PCP Internal Medicine; Visit Provider Internal Medicine
DX: Z00.00 Encounter for general adult medical examination without abnormal findings (principal); I10 Essential (primary) hypertension; E03.9 Hypothyroidism, unspecified; E66.01 Morbid (severe) obesity due to excess calories; K21.9 Gastro-esophageal reflux disease without esophagitis; F41.1 Generalized anxiety disorder; K76.0 Fatty (change of) liver, not elsewhere classified; M06.9 Rheumatoid arthritis, unspecified; H61.21 Impacted cerumen, right ear

== ENCOUNTER → 2024-05-13 09:00 | Outpatient (BNVA) | payer OTHER, SELFPAY | PROVIDERS: PCP Internal Medicine; Visit Provider Internal Medicine ==

== ENCOUNTER 2024-08-13 09:54 | Outpatient (REF) | payer OTHER, SELFPAY | END 2024-08-13 09:55 | disposition home or self-care (01) | LOC: HO.MAMMO 09:54 | PROVIDERS: PCP Internal Medicine; Visit Provider Internal Medicine | DX: Z12.31 Encounter for screening mammogram for malignant neoplasm of breast (principal) | CPT/HCPCS: 77063; 77067 ==

== ENCOUNTER → 2024-08-13 10:00 | Outpatient (BNV) | payer OTHER, SELFPAY | PROVIDERS: PCP Internal Medicine; Visit Provider Internal Medicine | DX: Z12.31 Encounter for screening mammogram for malignant neoplasm of breast (principal) | CPT/HCPCS: 77063; 77067 ==

== ENCOUNTER 2024-11-11 06:43 | Outpatient (REF) | payer OTHER, SELFPAY ==
[2024-11-11 07:39] LABS: Alanine Aminotransferase 76 U/L (0-31); Albumin Level 4.5 g/dL (3.5-5.0); Alkaline Phosphatase 71 U/L (39-117); Anion Gap 14 (12-20); Aspartate Amino Transferase 47 U/L (5-31); Blood Urea Nitrogen 23 mg/dL (9-16); Calcium 9.1 mg/dL (8.4-10.2); Carbon Dioxide 26 mmol/L (22-29); Chloride 105 mmol/L (96-108); Cholesterol 181 mg/dL (<200); Estimated Glomerular Filt Rate > 60; HDL Cholesterol 41 mg/dL (>40); Potassium 4.4 mmol/L (3.3-5.1); Sodium 141 mmol/L (135-145); Total Protein 7.4 g/dL (6.5-8.0); Triglycerides 148 mg/dL (<150)
[2024-11-11 07:57] LABS: Free T4 (Free Thyroxine) 1.16 ng/dL (0.71-1.85); Thyroid Stimulating Hormone 2.42 uIU/mL (0.32-4.0)
[2024-11-11 08:18] LABS: Folate 6.0 ng/mL (> or = 4.0); Vitamin B12 403 pg/mL (200-900)
== END 2024-11-11 06:44 | disposition home or self-care (01) ==
LOC: HO.LAB 06:43
PROVIDERS: PCP Internal Medicine; Visit Provider Internal Medicine
DX: R73.02 Impaired glucose tolerance (oral) (principal); I10 Essential (primary) hypertension; E03.9 Hypothyroidism, unspecified; K21.9 Gastro-esophageal reflux disease without esophagitis; E66.01 Morbid (severe) obesity due to excess calories; Z68.41 Body mass index [BMI] 40.0-44.9, adult; K76.0 Fatty (change of) liver, not elsewhere classified; M06.9 Rheumatoid arthritis, unspecified; F41.1 Generalized anxiety disorder; E78.00 Pure hypercholesterolemia, unspecified; Z71.3 Dietary counseling and surveillance; Z87.891 Personal history of nicotine dependence
CPT/HCPCS: 36415; 80053; 80061; 82306; 82607; 82746; 83036; 84439; 84443; 85652; 86140

== ENCOUNTER 2024-11-11 09:37 | Outpatient (AMB) | payer OTHER, SELFPAY ==
--- NOTE | 2024-11-11 09:45 | A.OFFPC_ITS ---
Vital Signs 11/11/24 09:47 Height 5 ft 3 in Weight 250 lb 2 oz BMI 44.3 BP 130/70 Blood Pressure Location Lt brachial Position Sitting Pulse 86 Pulse Source Pulse Oximeter Temp 97.3 F Temp Source Temporal Artery Scan Pulse Oximetry (%) 96 Oxygen Delivery Method Room Air Intake Visit Reasons: hypothyroid, obesity, RA Intake Note: Patient is here to follow up on Hypothyroid, Obesity, RA. 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 Stamping Mill Tender: Not Required per policy Accompanied by: Self / Same As Patient Allergies Biaxin Allergy (Unknown, Verified 11/11/24 09:47) tongue swelling clarithromycin (From BIAXIN) Allergy (Unknown, Verified 11/11/24 09:47) SWELLING AND HIVES latex (LATEX) Allergy (Unknown, Verified 11/11/24 09:47) HIVES oxycodone (From OXYCONTIN) Allergy (Unknown, Verified 11/11/24 09:47) ITCHINESS hydroxychloroquine (From Plaquenil) Adverse Reaction (Intermediate, Verified 11/11/24 09:47) Abdominal Pain Medication List - Last Reconciled 11/11/24 by Duong Ram MD brimonidine 0.2% 1 drp ophthalmic (eye) BID hydrochlorothiazide 25 mg PO DAILY levothyroxine 175 mcg PO DAILY magnesium glycinate 100 mg PO DAILY melatonin 10 mg PO BEDTIME PRN meloxicam 15 mg PO DAILY 90 days pantoprazole 40 mg PO DAILY sertraline 75 mg (1.5 x 50 mg) PO DAILY 90 days Tobacco use date assessed: 11/11/24 Dental Screening Dental Screen Date: 05/13/24 [facility] Medical History (Updated 11/11/24 @ 10:25 by Duong Ram MD) Obesity Otitis externa of right ear Reactive hypoglycemia Acute bronchitis Viral upper respiratory illness Lalito's thyroiditis Colon cancer screening Insomnia Colon cancer screening Abdominal pain Headache Tick bite Fever Adenomyosis Polycythemia Migraine GERD (gastroesophageal reflux disease) Lumbar degenerative disc disease Obesity (BMI 30-39.9) Osteoarthritis Hypothyroid Hypertension Annual physical exam Surgical History Eye pressure History of total right knee replacement H/O: hysterectomy (~05/2021) History of inguinal hernia repair History of section History of appendectomy History of orthopedic surgery History of arthroscopy of right shoulder Family History Father Alcohol abuse Substance use disorder Mother Cervical cancer Lung cancer Maternal Grandmother Breast cancer Liver cancer Paternal Aunt Breast cancer Paternal Grandfather Heart attack Paternal Grandmother Heart attack Social History Household Members: Children Household Members Other:: Son Housing: House Alcohol intake: current Alcohol intake frequency: holidays/special occasions only Comment: once Q 6 months 1-2 drinks Patient Tobacco Use Status: Former Tobacco user Tobacco use type: Cigarette Cigarette Packs Per Day: 0.5 Years Smoked: June 2019 e-Cigarette/Vaping Use: Never Used Second Hand Smoke Exposure: Yes service: No Current occupational status: employed Cognitive needs: No Hearing needs: No Vision needs: No Questionnaire PHQ-9 Over the last 2 weeks, how often have you been bothered by any of the following problems? 1. Little interest or pleasure in doing things: several days 2. Feeling down, depressed, or hopeless: several days 3. Trouble falling or staying asleep, or sleeping too much: several days 4. Feeling tired or having little energy: several days 5. Poor appetite or overeating: several days 6. Feeling bad about yourself - or that you are a failure or have let yourself or your family down: not at all 7. Trouble concentrating on things, such as reading the newspaper or watching television: not at all 8. Moving or speaking so slowly that other people could have noticed. Or the opposite - being so fidgety or restless that you have been moving around a lot more than usual: not at all 9. Thoughts that you would be better off or of hurting yourself in some way: not at all Total score: 5 Depression Screening Interpretation: Positive Depression Screening Done: Yes Source: Developed by Drs. Abdias Limon, Yudith Johnson, Gonzalo Mendez and colleagues, with an educational bhargav from [employer]. Thrive Questionnaire Date Thrive assessed: 05/13/24 I am a: Patient What is your living situation today?: I have a steady place to live Within the past 12 months, did the food you bought not last and you didn't have the money to get more?: I choose not to answer this question Within the past 12 months, did you worry whether your food would run out before you got money to buy more?: I choose not to answer this question Do you have trouble paying for medicines?: I choose not to answer this question Do you have trouble getting transportation to medical appointments?: I choose not to answer this question Do you have trouble paying your heating and electricity bill?: I choose not to answer this question Do you have trouble taking care of your child, family member or friend?: I choose not to answer this question Do you have trouble with day-to-day activities such as bathing, preparing meals, shopping, managing finances, etc.?: I choose not to answer this question Are you currently unemployed and looking for a job?: No Are you interested in more education?: I choose not to answer this question Please select the resources that you would like help with: None THRIVE Score: 0 AUDIT C Alcohol Use Questionnaire (AUDIT-C) 2. How many drinks containing alcohol do you have on a typical day when you are drinking?: 1 or 2 3. How often do you have six or more drinks on one occasion?: Never Total Score: 0 DOROTEO-7 AMB Questionnaire DOROTEO-7 Date DOROTEO - 7 assessed: 05/13/24 Source: Developed by Drs. Abdias Limon, Yudith Johnson, Gonzalo Mendez and colleagues, with an educational bhargav from [employer]. Physical exam (Primary Care) Vital Signs: Last Vital Signs Temp 97.3 F 11/11/24 09:47 Pulse 86 11/11/24 09:47 BP 130/70 11/11/24 09:47 Pulse Ox 96 11/11/24 09:47 Oxygen Delivery Method Room Air 11/11/24 09:47 BMI result Body Mass Index 44.3 Tobacco/Smoking Status: Tobacco use Status Tobacco use date assessed 11/11/24 11/11/24 10:06 Patient Tobacco Use Status Former Tobacco user 11/11/24 10:06 Tobacco use type Cigarette 11/11/24 10:06 e-Cigarette/Vaping Use Never Used 11/11/24 10:06 PHQ-9: PHQ-9 Score PHQ-9: Total score 5 11/11/24 10:30 Depression Screening Interpretation: Positive Thrive Assessment: Date of Thrive Assessment Date Thrive assessed 05/13/24 11/11/24 10:06 Const General: alert; No acute distress Eyes Conjunctivae: conjunctivae normal Resp Auscultation: clear to auscultation bilaterally Cardio Rate: regular rate Rhythm: regular rhythm GI Inspection: Yes normal to inspection Extrem General: Yes normal to inspection and No edema Results AMB Hemoglobin A1c AMB Hemoglobin A1c 5.9 % Last Edit by HERB Lyles on 11/11/24 10:36 Results Reviewed Results Reviewed: Laboratory Last Values Hgb A1c (Clinic) 5.9 % (4.0-6.0) 11/11/24 10:30 Coding Level of Care Code Est Pt Level 4 (61359) Complex EM visit Add On G2211 Diagnoses Impaired glucose tolerance R73.02 Essential hypertension I10 Hypertension type: essential hypertension Acquired hypothyroidism E03.9 Hypothyroidism type: acquired Morbid obesity E66.01 GERD (gastroesophageal reflux disease) K21.9 Fatty liver K76.0 Rheumatoid arthritis, involving unspecified site, unspecified whether rheumatoid factor present M06.9 Rheumatoid arthritis location: unspecified site Rheumatoid factor presence: unspecified presence Generalized anxiety disorder F41.1 Assessment & Plan Assessment & Plan (1) Impaired glucose tolerance: Code(s): R73.02 - Impaired glucose tolerance (oral) Category: Medical Plan: Decrease the amount of carbohydrate intake, pasta, bread, rice and potatoes are all sugar and that is aside from all the sweet stuff, remember that fruits are good but they are Sweet also. (2) Hypertension: Code(s): I10 - Essential (primary) hypertension Category: Medical Qualifiers: Hypertension type: essential hypertension Qualified Code(s): I10 - Essential (primary) hypertension Plan: Continue with blood pressure medication. Decrease salt intake and exercise patient on hydrochlorothiazide 25 mg once a day (3) Hypothyroid: Comment: 1996 Code(s): E03.9 - Hypothyroidism, unspecified Category: Medical Qualifiers: Hypothyroidism type: acquired Qualified Code(s): E03.9 - Hypothyroidism, unspecified Plan: Continue with thyroid medication (4) Morbid obesity: Code(s): E66.01 - Morbid (severe) obesity due to excess calories Category: Medical Plan: Diet and exercise (5) GERD (gastroesophageal reflux disease): Code(s): K21.9 - Gastro-esophageal reflux disease without esophagitis Category: Medical Plan: Avoid the foods that causes that usually spicy foods, tomato products, juices, coffee, soda and foods that your sensitive to. After eating do not lie down, allow 3-4 hours before in lie down. And keep the head of bed above 30 degrees to avoid the acid from going up. (6) Fatty liver: Code(s): K76.0 - Fatty (change of) liver, not elsewhere classified Category: Medical Plan: Low-fat diet and exercise (7) Rheumatoid arthritis: Comment: Plaquenil 2019 - unable to tolerate due to palpitations and GI upset. Methotrexate March 2021- 4 tabs weekly, she took this for 1 month without issue, then stopped it for hysterectomy. Methotrexate was restarted after surgery but her liver function enzymes were elevated so it was discontinued. LFTs have improved after discontinuing methotrexate Sulfasalazine-September 2021 - 03/21/2022 noncompliance, lightheadedness Good response to prednisone Code(s): M06.9 - Rheumatoid arthritis, unspecified Category: Medical Qualifiers: Rheumatoid arthritis location: unspecified site Rheumatoid factor presence: unspecified presence Qualified Code(s): M06.9 - Rheumatoid arthritis, unspecified Plan: Patient advised continue follow-up with Rheumatology. On meloxicam for pain (8) Generalized anxiety disorder: Code(s): F41.1 - Generalized anxiety disorder Category: Medical Plan History of Present Illness The patient is a 49-year-old female presenting for a follow-up visit. She has a history of hypothyroidism, hypertension, gastroesophageal reflux disease, lumbar degenerative disc disease, polycythemia, generalized anxiety disorder, hepatic steatosis, rheumatoid arthritis, and knee osteoarthritis. The patient reports that her blood work showed elevated blood sugar and liver function tests, while her electrolytes and kidney function were normal. Her cholesterol levels were good, with a total cholesterol of 181 mg/dL, HDL at 41 mg/dL, LDL at 111 mg/dL, and triglycerides at 148 mg/dL. She is currently on hydrochlorothiazide 25 mg daily for hypertension and continues her thyroid medication. She is also taking sertraline 75 mg daily for anxiety, with plans to increase to 100 mg. The patient has been experiencing sinus pressure and has been advised to try Zyrtec at night. She has been following a low-fat diet and exercise regimen for her reflux and weight management. Her preventative care is up to date with a recent mammogram and a colonoscopy performed in August 2022. Health Maintenance - Mammogram is up to date - Colonoscopy performed in August 2022 - Advised to follow a low-fat diet and exercise regimen Social History - Reports feeling anxious at work and experiencing stress - Following a low-fat diet and exercise regimen for weight management - Planning a trip involving hiking, indicating a desire to increase physical activity Review of Systems - Endocrine: Reports impaired glucose tolerance - Gastrointestinal: Reports elevated liver function tests - Cardiovascular: Denies chest pain, reports good blood pressure control - Musculoskeletal: Reports knee osteoarthritis, pain in fingers - Neurological: Reports generalized anxiety disorder - Respiratory: Reports sinus pressure Physical Exam Results - Labs: Elevated blood sugar, elevated liver function tests, normal electrolytes, normal kidney function, total cholesterol 181 mg/dL, HDL 41 mg/dL, LDL 111 mg/dL, triglycerides 148 mg/dL Plan The patient will continue her current medications, including hydrochlorothiazide for hypertension and thyroid medication for hypothyroidism. Her sertraline dosage will be increased from 75 mg to 100 mg to better manage her anxiety symptoms. For her impaired glucose tolerance, the patient is advised to maintain a low-fat diet and exercise regimen to manage her blood sugar levels. She is also advised to try Zyrtec at night for sinus pressure relief. Preventative care measures include ensuring her mammogram remains up to date and following up on her colonoscopy results from August 2022. Patient was informed and verbally consented to the use of an ambient scribe for clinic note documentation during this visit. Discussion Notes During the visit, we discussed the patient's current medication regimen and the plan to increase her sertraline dosage to 100 mg to address her anxiety symptoms. We also reviewed her lab results, noting elevated blood sugar and liver function tests, and emphasized the importance of maintaining a low-fat diet and exercise regimen. I advised her to try Zyrtec at night for sinus pressure relief and to ensure her preventative care measures, such as mammograms and colonoscopies, remain up to date. Patient Instructions - Continue taking hydrochlorothiazide and thyroid medication as prescribed. - Increase sertraline dosage to 100 mg as discussed. - Follow a low-fat diet and exercise regularly to manage blood sugar levels. - Try Zyrtec at night for sinus pressure relief. - Ensure mammograms and colonoscopies are up to date. Orders: Orders AMB Hemoglobin A1c Today R73.02 - Impaired glucose tolerance (oral) Medications: Changed From sertraline 75 mg (1.5 x 50 mg) PO DAILY 90 days 135 tabs 1RF F41.1 - Generalized anxiety disorder To sertraline 100 mg PO DAILY 90 tabs 1RF 90 days F41.1 - Generalized anxiety disorder
[2024-11-11 09:47] VITALS: BP 130/70; PULSE 86; TEMP 36.3; O2SAT 96; BMI 44.3
--- OUTSIDE RECORDS SUMMARY | 2024-11-11 09:49 | XMS_ITS | Clinical Summary ---
Author Organization [facility] Address Pending sale to [facility] [employer] [address] [address] Phone Care Team Providers Care Advertising Vice President Name Role Phone Duong Ram MD Primary Care Provider [phone] Allergies Active Allergy Reactions Criticality Noted Date Comments Clarithromycin Other (See Comments) 08/08/2017 Tongue swelling/bumps Latex Hives 09/15/2017 Oxycodone Itching 09/15/2017 Oxycodone-Acetaminophen Itching 09/15/2017 Medications levothyroxine (SYNTHROID, LEVOTHROID) 200 MCG tablet Take 200 mcg by mouth every morning. Active amLODIPine (NORVASC) 10 MG tablet Take 10 mg by mouth daily. Active hydroCHLOROthiaz miya (HYDRODIURIL) 25 MG tablet Take 25 mg by mouth daily. Active omeprazole (PRILOSEC) 10 MG capsule Active meloxicam (MOBIC) 15 MG tablet Take 1 tablet by mouth every morning. 01/19/2024 Active pantoprazole (PROTONIX) 40 MG tablet Take 1 tablet by mouth every morning. 12/12/2023 Active sertraline (ZOLOFT) 50 MG tablet TAKE 1 AND 1/2 TABLET BY MOUTH DAILY 12/14/2023 Active Active Problems No known active problems Immunizations Immunization Administration Dates Next Due COVID-19 (Pre-02/09) Moderna Vaccine, mRNA, PF 06/07/2020,05/03/2020 Hepatitis B Adult 04/11/2021 Influenza Quadrivalent Prese rvative Free IM 05/08/2023,05/05/2022,04/11/2021,2019,04/01/2019,05/08/2017 Influenza Quadrivalent w/ Preservative IM 03/26/2018 Social History Tobacco Use Types Packs/Day Years Used Date Smoking Tobacco: Never Smokeless Tobacco: Never Education Answer Date Recorded Are you interested in more education? Not on aldair e 08/15/2022 Are you concerned about learning? Not on file 08/15/2022 No 08/15/2022 No 08/15/2022 Digital Access Answer Date Recorded No 09/12/2022 No 09/12/2022 Reliable internet access at home? Not on file 09/12/2022 Device with a working camera? Not on file Comments Unknown Sex and Gender Information Value Date Recorded Sex Assigned at Not on file Legal Sex Female 9:28 PM EDT Gender Identity Not on file Sexual Orientation Not on file Last Filed Vital Signs Vital Sign Reading Time Taken Comments Blood Pressure 139/90 02/09/2024 8:08 AM EDT Pulse 93 02/09/2024 8:08 AM EDT Temperature 36.6 C (97.8 F) 02/09/2024 8:08 AM EDT Respiratory Rate 18 02/09/2024 8:08 AM EDT Oxygen Saturation 99% 02/09/2024 8:08 AM EDT Inhaled Oxygen Concentration - - Weight 89.4 kg (197 lb) 09/15/2017 4:32 PM EDT Height 160 cm (5' 3 ) 09/15/2017 4:32 PM EDT Body Mass Index 34.9 09/15/2017 4:32 PM EDT Plan of Treatment Health Maintenance Due Date Last Done Comments Adult Td,Tdap Booster 1975 LIPID PANEL 1975 POTASSIUM LEVEL 1975 TSH LEVEL 1975 DEPRESSION SCREENING 1987 HEPATITIS C SCREENING 07/25/1993 HIV ONE-TIME SCREENING (18-6 5 YEARS) 07/25/1993 PAP SMEAR 07/25/1996 MAMMOGRAM 2015 COLOGUARD 07/25/2020 COLONOSCOPY 07/25/2020 COLORECTAL CANCER SCREENING 07/25/2020 FIT TEST 07/25/2020 FOBT 07/25/2020 SIGMOIDOSCOPY 07/25/2020 VIRTUAL COLONOSCOPY 07/25/2020 COVID-19 VACCINE (2023-2 5 season) 2023 04/25/2021, 06/07/2020, 05/03/2020 SMOKING STATUS SCREENING (On ce After 26 Yrs) Completed 02/09/2024 HEPATITIS A VACCINES Aged Out No long er eligible based on patient's age to complete this topic HIB VACCINES Aged Out No longer eligi ble based on patient's age to complete this topic MENINGOCOCCAL VACCINES (ACWY) Aged Out No longer eligible based on patient's age to complete this topic MENINGOCOCCAL VACCINES (B) Aged Out N o longer eligible based on patient's age to complete this topic PNEUMOCOCCAL VACCINES (0-49 years) Aged Out No longer eligible b ased on patient's age to complete this topic Medical Devices Not on file [facility] [employer] Member Subscriber Plan / Payer ( fective 2021-) Name:Michelle Miguel Relation to Subscriber:Self Name:Michelle Miguel Payer ID:Not on file Type:Indemnity Address: [address] [facility] [address] [place] [address] [place], [place] [id number] POS Member Subscriber Plan / Payer ( fective 2024-) Name:Michelle Miguel Relation to Subscriber:Self Name:Michelle Miguel Payer ID:Not on file Type:POS Address: ATTN:[facility] [employer] [address] [place] [phone] [facility] Member Subscriber Plan / Payer ( fective 2021-) Name:Michelle Miguel Relation to Subscriber:Self Name:Michelle Miguel Payer ID:Not on file Type:Indemnity Address: [address] [place] [phone] [facility] Member Subscriber Plan / Payer (Ef fective 2021-) Name:Michelle Miguel Relation to Subscriber:Self Name:Michelle Miguel Payer ID:Not on file Type:Indemnity Address: [facility] [address] [place] [phone] [facility] POS [facility] POS [facility] POS Care Teams Advertising Vice President Relationship Specialty Start Date End Date Duong Ram MD [address] [place] [phone] PCP - General 08/08/17 Additional Source Comments The information contained in this document represents components of the legal health record. It is not the complete legal health record.[facility]
--- OUTSIDE RECORDS SUMMARY | 2024-11-11 09:49 | XMS_ITS | Patient Health Record ---
Author Organization [facility] Address [address] [place] [phone] Care Team Providers Care Outside Physical Damage Appraiser Name Role Phone Po Duong ZAMORA Primary Care Provider Denton Baumann Jr Unavailable Allergies Allergen (clinical drug ingredient) Drug/Non Drug Allergy documented on EMR Reaction Allergy Type Onset Date Status acetaminophen / oxycodone Percocet Unknown Drug Allergy Active oxycodone OxyContin Unknown Drug Allergy Active Biaxin Unknown Drug Allergy Active Latex LATEX (uncoded) Unknown Allergy Acti ve Reason For Referral No Information Medications Medication SIG (Take, Route, Frequency, Duration) Notes Start Date End Date Status MiraLax (colon prep) 17 GM/SCOOP mixed with Gatorade or Crystal Light Orally begin at 5:00 p.m. the day before the procedure for 1 day 07/31/2022 Active hydroCHLOROthiazide 12.5 MG 1 tablet in the morning Orally Once a day Active traMADol HCl 50 MG 1 tablet as needed Orally as needed Active Levothyroxine Sodium 200 MCG Oral for 30 Active Pantoprazole Sodium 40 MG 1 tablet Orall y Once a day Active Dicyclomine HCl 20 MG TAKE 1 TABLET BY MOUTH 2 TO 4 TIMES A DAY for 30 Active Immunizations Vaccine Route Administration Date Status Comme nts Influenza Unknown 03/20/2019 Administered Social History Tobacco Use: Social History Observation Description Date Details (start date - stop date) Former Smoker NA - NA Tobacco Use/Smoking Question Answer Notes Patient is a former smoker How long has it been since you last smoked? 1-5 years Alcohol Screen Question Answer Notes Did you have a drink contain ing alcohol in the past year? Yes How often did you have a dri nk containing alcohol in the past year? Monthly or less (1 point) How many drinks did you have on a typical day when you were drinking in the past year? 1 or 2 drinks (0 point) Points 1 Interpretation Negative Problems Problem Type SNOMED Code ICD Code Onset Dates Problem Status W/U Status Risk Notes Problem 318734116 Colon cancer screening (Z12.11) Active confirmed Problem 38124270 Epigastric pain (R10.13) Active confirmed Problem 650262712 Irritable bowel syndrome with diarrhea (K58.0) Active confirmed Problem 278961505 Gastroesophageal reflux disease without esophagitis (K21.9) Active confirmed Problem 0198267 Substernal pain (R07.2) Active confirmed Plan Of Treatment Pending Test Test Name Order Date HIDA SCAN GB WITH CCK 11/16/2019 Future Test Test Name Order Date UPPER GI ENDOSCOPY 02/19/2017 COLONOSCOPY 07/31/2022 Insurance Providers Payer Name Payer Address Payer Phone Subscriber Number Group Number Insured Name Patient Relationship to Insured Coverage Start Date Coverage End Date [facility] [address] [place], [place] [id number] RICHY TALBERT Self - patient is the insured 0 Medical (General) History Medical History History ICD Code Hypoglycemia hashimotos thyroiditis, hypothyroidism hypertension Gastroesophageal reflux disease, EGD 04/20 218, no BE or HP Colonoscopy 08/02/08, hyperplastic polyp. Rheumatoid arthritis Surgical History Surgery Date(Month/Year) hernia repair section right knee x6 right shoulder
== END 2024-11-11 10:49 | disposition home or self-care (01) ==
LOC: HO.HMCH 09:38
PROVIDERS: PCP Internal Medicine; Visit Provider Internal Medicine
DX: R73.02 Impaired glucose tolerance (oral) (principal); E66.01 Morbid (severe) obesity due to excess calories; M06.9 Rheumatoid arthritis, unspecified; Z68.41 Body mass index [BMI] 40.0-44.9, adult; I10 Essential (primary) hypertension; E03.9 Hypothyroidism, unspecified; K21.9 Gastro-esophageal reflux disease without esophagitis; K76.0 Fatty (change of) liver, not elsewhere classified; F41.1 Generalized anxiety disorder